=== PATIENT | female | born 1985 | race Caucasian/White ===

== ENCOUNTER → 2019-11-10 | Outpatient (CLI) | payer MEDICAID, SELFPAY ==
[2019-11-10 15:41] LABS: hCG Titer Quant., Serum 18655 mIU/mL (1-3)
== END | disposition home or self-care (01) ==
PROVIDERS: Nurse Practitioner Women's Health; PCP Family Medicine; Referring Provider Obstetrics & Gynecology; Visit Provider Obstetrics & Gynecology
DX: O20.0 Threatened abortion (principal)
CPT/HCPCS: 36415; 84702; 86850; 86900; 86901

== ENCOUNTER → 2019-11-11 | Outpatient (CLI) | payer MEDICAID, SELFPAY ==
--- NOTE | 2019-11-11 18:49 | US_ITS ---
STUDY: FIRST TRIMESTER OBSTETRICAL ULTRASOUND REASON FOR EXAM: Female, 33 years old. Viability. Spotting and cramping. LMP: September 21, 2019. TECHNIQUE: Transvaginal TECHNICAL QUALITY: Adequate. PRIOR ULTRASOUND: None. FINDINGS: There is visualization of a single gestational sac in a normal intrauterine position. The mean sac diameter (MSD) measures 1.6 cm, indicating an estimated gestational age (EGA) of 6 weeks, 3 days. The gestational sac shape is within normal limits. There is a visualized yolk sac. The yolk sac measures 0.36 cm. The placenta is non-visualized. There is visualization of a live embryo. The crown-rump length (CRL) measures 0.52 cm, indicating an estimated gestational age (EGA) of 6 weeks, 2 days. There is demonstrated cardiac activity with a heart rate of 112 bpm. The estimated gestation age (EGA) by LMP is 7 weeks, 2 days. The estimated date of delivery (TERRA) by LMP is June 27, 2020. The estimated gestation age (EGA) by US is 6 weeks, 3 days. The estimated date of delivery (TERRA) by US is July 03, 2020. The uterus measures 9.3 x 8.4 x 6.1 cm. There is no demonstrated uterine fibroid. The cervix is closed. The right ovary measures 3.6 x 2.8 x 2.3 cm. There are multiple follicles of the right ovary without a dominant cyst. There is no visualized right adnexal mass or complex lesion. The left ovary measures 3.6 x 2.3 x 1.7 cm. There are multiple follicles of the left ovary without a dominant cyst. There is no visualized left adnexal mass or complex lesion. There is no fluid in the cul de sac. US/Init OB < 14Wks US IMPRESSION: 1. Live single intrauterine at 6 weeks, 3 days. TERRA is July 03, 2020. 2. heart rate of 112 bpm. 3. Normal ovaries. Electronically Signed: José Miguel Shearer DO at 19:33 EDT Tel [phone], Service support ,
== END | disposition home or self-care (01) ==
LOC: US 18:47
PROVIDERS: PCP Family Medicine; Visit Provider Nurse Practitioner Women's Health
DX: O20.9 Hemorrhage in early pregnancy, unspecified (principal)
CPT/HCPCS: 76801

== ENCOUNTER → 2019-11-12 | Outpatient (CLI) | payer MEDICAID, SELFPAY ==
[2019-11-12 10:45] VITALS: BMI 31.2
[2019-11-12 11:54] LABS: Absolute Lymphocyte Count 1.35 X10^3/uL (0.83-4.51); Absolute Neutrophil Count 6.6 X10^3/uL (2.0-7.7); Basophil# 0.04 X10^3/uL; Basophil% 0.5 % (0-1); Eosinophil# 0.08 X10^3/uL; Hematocrit 42.2 % (37-47); Hemoglobin 14.3 g/dL (12.0-15.0); Lymphocyte # 1.35 X10^3/ul (4.0); Mean Corp Hgb Conc 33.9 g/dL (32-36); Mean Corpuscular Hgb 31.7 pg (27.0-32.0); Mean Corpuscular Volume 93.6 fL (81-99); Monocyte# 0.36 X10^3/uL; Monocyte% 4.3 % (0-10); NRBC Flagged by Analyzer 0 % (0-5); Neutrophil # 6.56 X10^3/uL (2.7-7.7); Neutrophil % 77.8 % (47-70); Platelet Count 215 K/mm3 (150-450); RBC Distribution Width CV 12.6 % (11.6-14.6); RBC Distribution Width SD 43.3 fl (35.1-43.9); Red Blood Count 4.51 M/mm3 (4.2-5.4); White Blood Count 8.4 K/mm3 (4.4-11.0)
[2019-11-12 12:10] LABS: ALB/GLOB Ratio 0.9 RATIO (0.9-2.4); AST(SGOT) 34 U/L (15-37); Alanine Aminotransfer ALT/SGPT 73 U/L (13-56); Albumin, Serum 3.5 g/dL (3.2-5.0); Alkaline Phosphatase 78 U/L (45-117); Anion Gap 6 (5-15); BUN 8 mg/dL (7-18); BUN/Creat Ratio 10.1 RATIO (10-20); Calcium,Total 8.9 mg/dL (8.5-10.1); Chloride 109 mmol/L (98-107); Creatinine, Serum 0.79 mg/dL (0.55-1.02); EST Glomerular Filtration Rate 88 mL/min (>60); Est Glom Filt Rate - Afr Amer 106 mL/min (>60); Globulin 3.9 g/dL (2.2-4.2); Glucose 97 mg/dL (74-106); Protein, Total 7.4 g/dL (6.4-8.2); Sodium Level 139 mmol/L (136-145)
[2019-11-12 13:31] LABS: HIV - WCH Non-Reactive (Nonreactive); Hepatitis B Surface Antigen Non-Reactive (Nonreactive); Rubella IgG 265.1 IU/mL
[2019-11-12 13:52] LABS: Hepatitis C Antibody Reactive (Nonreactive)
[2019-11-12 16:39] LABS: Protein, Urine (Random) < 6.0 mg/dL (<11.9)
[2019-11-12 16:49] LABS: Amphetamine Urine VISTA NEGATIVE (<1000 ng/mL); Barbiturate Urine VISTA NEGATIVE (< 200 ng/mL); Benzodiazepine Urine VISTA NEGATIVE (< 200 ng/mL); Cocaine Urine VISTA NEGATIVE (< 300 ng/mL); Ecstacy Urine VISTA NEGATIVE (< 500 ng/mL); Methadone Urine VISTA NEGATIVE (< 300 ng/mL); PCP Urine VISTA NEGATIVE (< 25 ng/mL); THC Urine VISTA NEGATIVE (< 50 ng/mL); Vista UDS pH Range 6
[2019-11-12 18:20] LABS: Chlamydia Trachomatis by PCR Negative (Negative); Neisserai gonorrhoeae by PCR Negative (Negative); Probe Check PASS; Sample Adequacy Control PASS; Specimen Processing Control PASS
[2019-11-13 04:31] LABS: Rapid Plasmin Reagin (RPR) NONREACTIVE (NONREACTIVE)
[2019-11-20 05:48] LABS: HPV APTIMA, High Risk Negative (Negative)
[2019-11-20 08:08] LABS: HCV Quant. RNA PCR 2150000 IU/mL (.)
[2019-11-20 18:21] LABS: HCV log 10 6.332 (.)
== END | disposition home or self-care (01) ==
PROVIDERS: PCP Family Medicine; Referring Provider Nurse Practitioner Women's Health; Visit Provider Nurse Practitioner Women's Health
DX: Z34.90 Encounter for supervision of normal pregnancy, unspecified, unspecified trimester (principal); Z87.59 Personal history of other complications of pregnancy, childbirth and the puerperium; R76.8 Other specified abnormal immunological findings in serum
CPT/HCPCS: 36415; 80053; 80307; 82570; 84156; 85025; 86592; 86703; 86762; 86803; 86850; 86900; 86901; 87086; 87088; 87340; 87491; 87522; 87591; 87624; 88175; G0145

== ENCOUNTER → 2019-11-24 | Outpatient (CLI) | payer MEDICAID, SELFPAY ==
[2019-11-12 10:45] VITALS: BMI 31.2
[2019-11-24 14:32] LABS: Protein, Urine (Random) < 6.0 mg/dL (<11.9); Protein:Creat Ratio 133 mg/g CRE (0-200)
[2019-11-24 14:39] LABS: Hemoglobin A1c 4.8 % (3.8-5.6)
[2019-11-24 15:05] LABS: ALB/GLOB Ratio 0.9 RATIO (0.9-2.4); AST(SGOT) 34 U/L (15-37); Alanine Aminotransfer ALT/SGPT 71 U/L (13-56); Albumin, Serum 3.6 g/dL (3.2-5.0); Alkaline Phosphatase 81 U/L (45-117); Anion Gap 6 (5-15); BUN 6 mg/dL (7-18); BUN/Creat Ratio 9.1 RATIO (10-20); Calcium,Total 8.7 mg/dL (8.5-10.1); Chloride 109 mmol/L (98-107); Creatinine, Serum 0.66 mg/dL (0.55-1.02); EST Glomerular Filtration Rate 108 mL/min (>60); Est Glom Filt Rate - Afr Amer 131 mL/min (>60); Glucose 89 mg/dL (74-106); Potassium 3.6 mmol/L (3.5-5.1); Protein, Total 7.6 g/dL (6.4-8.2); Sodium Level 137 mmol/L (136-145); Thyroid Stim Hormone (TSH) 1.38 uIU/mL (0.358-3.74)
[2019-11-28 16:08] LABS: Dilute Prothrombin Time (dPT) 28.1 sec (0.0-55.0); Dilute Russell Viper Venom 40.1 sec (0.0-47.0); HCV Quant. RNA PCR 266000 IU/mL (.); PTT-LA 31.1 sec (0.0-51.9); Thrombin Time 18.6 sec (0.0-23.0); dPT Confirm Ratio 1.24 Ratio (0.00-1.40)
[2019-11-28 17:19] LABS: Anti-Cardiolipin Ab, IgA, Qn < 9 APL U/mL (0-11); Anti-Cardiolipin Ab, IgG, Qn < 9 GPL U/mL (0-14); Anti-Cardiolipin Ab, IgM, Qn < 9 MPL U/mL (0-12); Beta-2-Glycoprotein I IgA <9 (0-25); Beta-2-Glycoprotein I IgG <9 (0-20); Beta-2-Glycoprotein I IgM <9 (0-32); HCV log 10 5.425 (.); Interpretation Comment: (.)
== END | disposition home or self-care (01) ==
PROVIDERS: PCP Family Medicine
DX: O09.291 Supervision of pregnancy with other poor reproductive or obstetric history, first trimester (principal); O09.299 Supervision of pregnancy with other poor reproductive or obstetric history, unspecified trimester; O98.419 Viral hepatitis complicating pregnancy, unspecified trimester; B18.2 Chronic viral hepatitis C; Z3A.00 Weeks of gestation of pregnancy not specified
CPT/HCPCS: 36415; 80053; 82570; 83036; 84156; 84443; 86146; 86147; 87522

== ENCOUNTER → 2019-12-01 | Outpatient (CLI) | payer MEDICAID, SELFPAY ==
[2019-11-28 15:00] VITALS: BMI 31.2
[2019-12-01 16:15] LABS: Glucose Challenge Gest 1H 50g 128 mg/dL (70-140)
[2019-12-01 16:28] LABS: NATERA MAILED SPECIMEN
[2019-12-01 23:22] LABS: Xtra Tube EP Lab EXTRA TUBE
== END | disposition home or self-care (01) ==
LOC: PAVLAB 14:19
PROVIDERS: PCP Family Medicine; Referring Provider Obstetrics & Gynecology; Visit Provider Obstetrics & Gynecology
DX: O99.210 Obesity complicating pregnancy, unspecified trimester (principal); O09.521 Supervision of elderly multigravida, first trimester; Z3A.00 Weeks of gestation of pregnancy not specified
CPT/HCPCS: 36415; 82950

== ENCOUNTER → 2020-01-28 | Outpatient (CLI) | payer MEDICAID, SELFPAY ==
[2020-01-23 16:58] VITALS: BMI 32.5
== END | disposition home or self-care (01) ==
PROVIDERS: PCP Family Medicine; Referring Provider Obstetrics & Gynecology; Visit Provider Obstetrics & Gynecology
DX: O09.529 Supervision of elderly multigravida, unspecified trimester (principal); Z3A.00 Weeks of gestation of pregnancy not specified
CPT/HCPCS: 36415

== ENCOUNTER → 2020-02-23 | Outpatient (CLI) | payer MEDICAID, SELFPAY ==
[2020-02-18 14:07] VITALS: BMI 32.5
[2020-02-23] MEDS: Dextrose 5%-Lactated Ringers 1,000 ML 999 ML IV (13:32)
[2020-02-23 13:35] VITALS: BP 128/75; PULSE 76; RESP 16; TEMP 37.1; O2SAT 99; BMI 35.4
[2020-02-23] MEDS: 0.9% NaCl Peripheral Flush Adult/Peds IV (13:35)
[2020-02-23] MEDS: Ondansetron 4 MG/2 ML Vial IV (13:54)
== END | disposition home or self-care (01) ==
LOC: MEDOUTP 13:04
PROVIDERS: Referring Provider Obstetrics & Gynecology; Visit Provider Obstetrics & Gynecology
DX: E86.0 Dehydration (principal)
CPT/HCPCS: 96361; 96374; A4216; J2405

== ENCOUNTER 2020-03-09 17:06 | Emergency (ER) | payer MEDICAID, SELFPAY ==
[2020-02-23 13:35] VITALS: BMI 35.4
[2020-03-09 17:07] VITALS: BP 147/78; PULSE 92; RESP 16; TEMP 36.1; O2SAT 98; BMI 37.0
--- NOTE | 2020-03-09 17:33 | ED.VIS.GEN ---
History of Present Illness Chief Complaint: Bite Informant: Patient Onset: Today Context: Sudden Onset Timing: Continuous Current Severity: Mild Maximum Severity: Mild Narrative: The patient is a 34-year-old female who is currently 20 weeks gestation that presents to the emergency department cat bite on her arm. She states she was trying to shoe away a stray cat. She was bit on the arm. This happened less than an hour prior to arrival. She thinks her last tetanus was less than 2 years ago. She denies any fevers or chills. Her has not been significantly complicated. She is otherwise been in her normal state of health. Prior similar symptoms: No Recent Illness/Hospitalization: No Past Medical History - Allergies and Home Meds Allergies/Adverse Reactions: Allergies No Known Allergies Allergy (Verified 03/09/20 17:08) Primary Care Physician: Care Physician,No Primary [Primary Care Provider] - Prior records reviewed: Yes Surgical History: noncontributory Smoking Status: Light Smoker (<10/day) Review of Systems General: Denies: Chills, Fever, Sweats Eyes: Denies: Visual changes - bilaterally, Diplopia ENT: Denies: Rhinorrhea, Sore throat Cardiovascular: Denies: Chest pain, Palpitations Respiratory: Denies: Dyspnea, Cough, Dyspnea on exertion Gastrointestinal: Denies: Abdominal pain, Nausea, Vomiting, Diarrhea, Melena, Hematochezia Genitourinary: Denies: Dysuria, Hematuria, Frequency Musculoskeletal: Denies: Back pain, Extremity Pain Skin: Denies: Rash, Wounds Neurological: Denies: Headache, Weakness, Numbness Physical Exam Vital Signs/Narrative: Vital Signs Temp Pulse Resp BP Pulse Ox 03/09/20 17:07 97.0 F L 92 16 147/78 H 98 Inital Vital Signs reviewed: Yes General: Well nourished, Well developed, No Acute Distress Head: Normocephalic, Atraumatic Eyes: Perrl, EOMI ENT: Moist mucous membranes, No rhinorrhea Neck: Supple, Nontender Cardiovascular: Regular rate, Regular rhythm, No murmurs Respiratory: No distress, CTA bilaterally, Chest nontender Abdomen: Soft, Nontender, Nondistended, Normal bowel sounds Back: Nontender, Normal Inspection Extremities: No edema, Tenderness - Patient has tenderness with puncture wounds on the dorsum of the right forearm. There is no streaking or cellulitis. There is no purulence. Pulses are normal. Skin: Normal color, No rash Neurological: Alert, Oriented x3, Cranial nerves II-XII grossly intact, Normal Strength, Normal Sensation Psychological: Normal affect, Normal Mood Diagnostic/Tx/Re-eval - Medical Decision Making Patient presents with cat bite. Tetanus is up-to-date. The wound was cleaned and dressed. The patient was placed on Augmentin which is category B. She was counseled on concerning symptoms and reasons to return. She will be discharged home. Impression 1. Cat bite right forearm ED Disposition - Plan for ED Patient: Instructions: ED Bite Cat Prescriptions: Amox/Clavulanate Tablet [Augmentin Tablet] 875 mg PO Q12H #14 tab Prescription Printed Referrals: Care Physician,No Primary [Primary Care Provider] -
[2020-03-09] MEDS: Amox/Clavulanate 875 MG Tablet PO (17:39)
== END 2020-03-09 17:46 | disposition home or self-care (01) ==
LOC: ED 17:39
PROVIDERS: Emergency Provider Emergency Medicine
DX: O26.892 Other specified pregnancy related conditions, second trimester (principal); S51.851A Open bite of right forearm, initial encounter; O99.332 Smoking (tobacco) complicating pregnancy, second trimester; F17.200 Nicotine dependence, unspecified, uncomplicated; Z3A.20 20 weeks gestation of pregnancy; W55.01XA Bitten by cat, initial encounter; Y93.89 Activity, other specified; Y92.007 Garden or yard of unspecified non-institutional (private) residence as the place of occurrence of the external cause; Y99.8 Other external cause status
CPT/HCPCS: 99281

== ENCOUNTER 2020-04-06 01:09 | Outpatient (CLI) | payer MEDICAID, SELFPAY ==
[2020-03-16 14:18] VITALS: BMI 36.9
[2020-04-06 01:16] VITALS: BP 137/65; PULSE 96; TEMP 36.4; O2SAT 98
[2020-04-06 01:24] VITALS: BMI 37.1
[2020-04-06 04:57] VITALS: BP 135/78; PULSE 89; TEMP 36.5
[2020-04-06 16:23] VITALS: BP 101/57; PULSE 93
[2020-04-06 16:24] VITALS: PULSE 86; O2SAT 100
[2020-04-06 16:25] VITALS: TEMP 37.1
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
== END 2020-04-06 05:00 | disposition home or self-care (01) ==
LOC: OBT 01:11 → WP 04-07 08:52
PROVIDERS: Visit Provider Obstetrics & Gynecology
DX: O26.899 Other specified pregnancy related conditions, unspecified trimester (principal); S39.91XA Unspecified injury of abdomen, initial encounter; V89.2XXA Person injured in unspecified motor-vehicle accident, traffic, initial encounter
CPT/HCPCS: 59025; 59050; 99218; G0378

== ENCOUNTER → 2020-05-21 12:22 | Outpatient (CLI) | payer MEDICAID, SELFPAY ==
[2020-05-19 10:45] VITALS: BMI 32.5
--- NOTE | 2020-05-21 12:23 | US_ITS ---
STUDY: SECOND AND THIRD TRIMESTER OBSTETRICAL ULTRASOUND - LIMITED REASON FOR EXAM: Female, 34 years old GROWTH LMP: 09/26/2019. PRIOR ULTRASOUND: Comparison is made with prior study dated 11/11/2019. TECHNIQUE: Transabdominal TECHNICAL QUALITY: Adequate. FINDINGS: There is a single intrauterine fetus. The fetus is in a cephalic presentation. There is demonstrated cardiac activity with a heart rate of 143 bpm. There is a normal amniotic fluid volume. The largest amniotic fluid pocket measures 3.9 cm. The amniotic fluid index (LIBIA) is 9.7 cm. The placenta is fundal in location. There are Grade 3 placental changes. The cervix measures 3.2 cm in length. BIOMETRY: BPD: 9.1 cm: 36 weeks, 6 days HC: 32.36 cm: 36 weeks, 4 days AC: 31.85 cm: 35 weeks, 5 days FL: 6.42 cm: 33 weeks, 1 days Age by LMP: 34 weeks, 0 days. TERRA by LMP: 07/02/2020. age by prior US: 33 weeks, 6 days. TERRA by prior US: 07/03/2020. age by current US: 35 weeks, 3 days. TERRA by current US: 06/22/2020. Estimated weight: 2660 grams, +/- 399 grams, 82 percentile. US/OB Limited With Biometrics IMPRESSION: Single live intrauterine gestation with a mean gestational age of 33 weeks and 6 days. The measurements obtained today fall within the normal expected range. Electronically Signed: Nahun Horton, at 14:05 EST , Service support ,
[2020-05-21 16:54] LABS: Absolute Lymphocyte Count 1.71 X10^3/uL (0.83-4.51); Absolute Neutrophil Count 6.9 X10^3/uL (2.0-7.7); Basophil# 0.03 X10^3/uL; Basophil% 0.3 % (0-1); Eosinophil# 0.09 X10^3/uL; Hematocrit 30.1 % (37-47); Hemoglobin 10.2 g/dL (12.0-15.0); Lymphocyte # 1.71 X10^3/ul (4.0); Lymphocyte % 18.7 % (19-41); Mean Corp Hgb Conc 33.9 g/dL (32-36); Mean Corpuscular Hgb 31.6 pg (27.0-32.0); Mean Corpuscular Volume 93.2 fL (81-99); Mean Platelet Vol. 8.8 fl (6.2-12.0); Monocyte% 3.3 % (0-10); NRBC Flagged by Analyzer 0 % (0-5); Neutrophil # 6.89 X10^3/uL (2.7-7.7); Neutrophil % 75.3 % (47-70); Platelet Count 256 K/mm3 (150-450); RBC Distribution Width CV 14.3 % (11.6-14.6); RBC Distribution Width SD 48.9 fl (35.1-43.9); Red Blood Count 3.23 M/mm3 (4.2-5.4); White Blood Count 9.2 K/mm3 (4.4-11.0)
[2020-05-21 18:13] LABS: ALB/GLOB Ratio 0.6 RATIO (0.9-2.4); AST(SGOT) 18 U/L (15-37); Alanine Aminotransfer ALT/SGPT 22 U/L (13-56); Albumin, Serum 2.3 g/dL (3.2-5.0); Alkaline Phosphatase 182 U/L (45-117); Anion Gap 6 (5-15); BUN 8 mg/dL (7-18); BUN/Creat Ratio 11.5 RATIO (10-20); Calcium,Total 8.4 mg/dL (8.5-10.1); Chloride 110 mmol/L (98-107); EST Glomerular Filtration Rate 101 mL/min (>60); Est Glom Filt Rate - Afr Amer 123 mL/min (>60); Globulin 3.9 g/dL (2.2-4.2); Glucose 112 mg/dL (74-106); Glucose Challenge Gest 1H 50g 112 mg/dL (70-140); Potassium 3.6 mmol/L (3.5-5.1); Protein, Total 6.2 g/dL (6.4-8.2); Sodium Level 138 mmol/L (136-145)
[2020-05-26 14:09] LABS: HCV Quant. RNA PCR 533000 IU/mL (.)
[2020-05-26 20:00] LABS: HCV log 10 5.727 (.)
== END ==
PROVIDERS: Referring Provider Obstetrics & Gynecology; Visit Provider Obstetrics & Gynecology
DX: Z34.90 Encounter for supervision of normal pregnancy, unspecified, unspecified trimester (principal)
CPT/HCPCS: 76816; 80053; 82746; 82950; 85025; 86803; 87522

== ENCOUNTER 2020-06-11 14:22 | Inpatient (IN) | payer MEDICAID, SELFPAY ==
[2020-06-11] VITALS (36 sets, daily range): BP systolic 116–178; BP diastolic 59–86; PULSE 70–116; TEMP 36.2–37.9; O2SAT 91–100; BMI 37.5
[2020-06-11] MEDS: Lactated Ringers 1,000 ML 500 ML IV (14:35)
[2020-06-11 15:20] LABS: Hematocrit 33.2 % (37-47); Hemoglobin 11.5 g/dL (12.0-15.0); Mean Corp Hgb Conc 34.6 g/dL (32-36); Mean Corpuscular Hgb 31.6 pg (27.0-32.0); Mean Corpuscular Volume 91.2 fL (81-99); Mean Platelet Vol. 8.6 fl (6.2-12.0); Platelet Count 316 K/mm3 (150-450); RBC Distribution Width CV 13.9 % (11.6-14.6); RBC Distribution Width SD 46.5 fl (35.1-43.9); Red Blood Count 3.64 M/mm3 (4.2-5.4); White Blood Count 16.1 K/mm3 (4.4-11.0)
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
[2020-06-11 15:59] LABS: Amphetamine Urine VISTA NEGATIVE (<1000 ng/mL); Barbiturate Urine VISTA NEGATIVE (< 200 ng/mL); Benzodiazepine Urine VISTA NEGATIVE (< 200 ng/mL); Cocaine Urine VISTA NEGATIVE (< 300 ng/mL); Ecstacy Urine VISTA NEGATIVE (< 500 ng/mL); Methadone Urine VISTA NEGATIVE (< 300 ng/mL); PCP Urine VISTA NEGATIVE (< 25 ng/mL); THC Urine VISTA POSITIVE (< 50 ng/mL); Vista UDS pH Range 6
[2020-06-11 16:19] LABS: Group B Strep DNA By PCR Negative (Negative); Internal Control PASS; Probe Check PASS; Specimen Processing Control PASS
[2020-06-11] MEDS: fentaNYL-bupivacaine (epidural) 100 ML BAG EPIDURAL (16:25)
[2020-06-11] MEDS: Lactated Ringers 1,000 ML 200 ML IV (16:39)
[2020-06-11] MEDS: Oxytocin 30 units/NS 500 ml 30 UNITS/500 ML IV.SOLN 334 UNITS IV (21:51)
--- NOTE | 2020-06-11 22:56 | OP.PCM_ITS ---
Problem List (1) 35 weeks gestation of Status: Acute Comment: electronic covid test ordered 05/28/20 (scheduled for 06/29/20 at 1630) (2) Family history of congenital heart defect Status: Acute Comment: FOB has prior child with VSD. normal echo (3) History of stillbirth in currently patient Status: Acute Comment: Anatomy at 18 weeks- nl; echo between 22-24- nl; serial growth q4 weeks throughout the ; weekly NSTs starting at 28 weeks, deliver at 39 weeks; NL US 05/21/20 (4) Obesity affecting Status: Acute Comment: nl 1 TM glucola, encouraged healthy weight gain. (5) AMA (advanced maternal age) multigravida 35+ Status: Acute Comment: NIPT-low risk. screening planned. (6) Supervision of high-risk Status: Acute Comment: PRR TERRA 07/03/20 boy John LOUIE (jacqueline Whittaker) ERROL Lopez(Alfred Hawthorne) (7) History of heroin abuse Status: Acute Comment: patient states she last used 3 years ago. plan Random tox (8) Hepatitis C antibody positive in blood Status: Acute Comment: [facility] consult. hepc RNA 266,000 on 11/23., serial growth @4 wks (9) History of abnormal cervical Pap smear Status: Acute Comment: 2008 cryotherapy (10) History of pre-eclampsia Status: Acute Comment: severe, delivered at 29 weeks. APL panel nl. nl Baseline pre E labs; Baby ASA at 14 wk (11) Family history of cleft lip and palate Status: Acute Comment: brother. Anatomy negative. (12) Status: Acute Qualifiers: Comment: male low risk, AFP-negative, carrier normal. anatomy reviewed. Vaginal Delivery Maternal Presentation: Active Labor 34-year-old at 36 weeks 6 days admitted in active labor. Patient made cervical change to 9 cm without augmentation and then was augmented with artificial rupture of membranes. She had been complete and pushing for approximately 1 hour when she began to have deep recurrent variable decelerations. The recommendation was made to proceed with a forceps assisted vaginal delivery. The risk, benefits, indications, and alternatives were discussed with the patient and she agreed to proceed. Amniotic Membrane Rupture Type: Artificial Amniotic Fluid Description: Thick meconium Final TERRA: 07/03/20 Gestational age: 36 Weeks and 6 Days Date of Procedure: 06/11/20 Pre-Operative Diagnosis: labor, history of drug use, hepatitis C, category 2 FHT Post-Operative Diagnosis: Same Surgery/ Procedure Performed: Forceps Assisted Vaginal Delivery Type of Anesthesia: Epidural Description of Procedure: Teja-Itzel forceps were applied in the standard fashion and placement was confirmed. Maternal bladder had been emptied as the Blanton catheter had recently been removed. Nursery was in the room. Anesthesia was found to be adequate. Traction was applied for 2 contractions. The forceps were removed and the head was noted to be . Head was delivered atraumatically and no nuchal cord was noted. The anterior and posterior shoulders delivered without complication followed by the rest of the and the was placed on the maternal abdomen. Cord was clamped and cut and gentle traction was applied to the cord and the placenta delivered spontaneously immediately following it was noted to be intact with three-vessel cord. The perineum and vagina were inspected and a 3 a perineal laceration was noted and repaired in the standard fashion using 2-0 Vicryl to reapproximate the external anal sphincter and 3-0 Vicryl Rapide to repair the remainder of the laceration. EBL was 250 cc. Patient and tolerated delivery well. Presentation: Vertex, ROP Placental Delivery Description: Spontaneous Placenta Disposition: [facility] Cord Vessel Description: 3 Vessels Nuchal Cord Compression: Without compression Cord Gases drawn per routine: VBG Cord Entanglement: None Drain: Blanton to straight drain Estimated Blood Loss: 250 cc A gender: Male Episiotomy Description: None Laceration: Midline, 3rd degree - 3a Medications given after delivery: IV Pitocin Complications: None Multi Select Codes - Urinary/Genital Urinary/Genital CPT Codes: 22264 Vaginal Delivery+ Care([facility])
--- NOTE | 2020-06-11 23:06 | DCINST_ITS ---
Discharge Diet: No Restrictions Discharge Activity: Return to Normal Activity, May not drive while taking narcotic pain medications., May Shower May resume sexual activity in: 4-6 weeks Additional Activity Instructions:: Nothing in the vagina for 4-6 weeks. You may return to work/school in 6 weeks. Call your doctor if your incision/area has: Continuous Slow Oozing, Sudden Increased Bleeding, Increased Pain/ Swelling, Increased Redness, Foul Smelling Discharge Additional Instructions: If you experience any of the following, contact your healthcare provider. * Bleeding that soaks a pad every hour for 2 hours * Fever 100.4 or higher * Unrelieved incision or abdominal pain * Swelling, redness, discharge or bleeding from your incision or episiotomy site * Your incision begins to separate * Problems urinating (including inability to urinate or burning while urinating). * Visual changes * Severe headache * Flu-like symptoms * Pain or redness in one of both of your breasts * Pain, warmth, tenderness or swelling in your legs, especially the calf area * Frequent nausea and vomiting * Symptoms of depression or anxiety If you experience any of the following, call 911 or go to the nearest Emergency Room. * Chest pain * Problems breathing * Seizure activity * Partial or complete paralysis of a body part, slurred speech, weakness or drooping of the face, or a sudden inability to walk or hold your balance Allergies/Adverse Reactions: Allergies No Known Allergies Allergy (Verified 06/04/20 13:59) Medications to take at Discharge ferrous sulfate 325 mg (65 mg iron) tablet 325 mg PO DAILY 11/12/19 vitamin #56-iron 35 mg and 5 mg-folic acid 1 mg-dha capsule 1 cap PO DAILY 11/12/19 Aspirin [Aspirin, Baby] 81 mg PO DAILY@0800 04/06/20 diphenhydramine HCl 25 mg capsule 25 mg PO TID PRN 05/21/20 promethazine 12.5 mg tablet 12.5 mg PO Q6H PRN #60 tab 05/25/20 When: Call to make an appointment with your doctor in 6 weeks. If you had elevated Blood Pressure or 4th degree laceration you will need to be seen in 2 weeks. Primary Care Physician: Care Physician,No Primary [Primary Care Provider] - Test Results: Test results from this visit will be discussed in further detail at your follow- up appointment, if applicable.
[2020-06-12] VITALS (7 sets, daily range): BP systolic 117–146; BP diastolic 70–75; PULSE 87–109; RESP 16–18; TEMP 36.4–37.3; O2SAT 97
[2020-06-12] MEDS: Ibuprofen 600 MG Tablet PO ×3 (01:04→18:38)
[2020-06-12] MEDS: Acetaminophen 500 MG Tablet 1000 MG PO ×2 (04:30→20:19)
--- NOTE | 2020-06-12 10:18 | PN.OBGYN_ITS ---
Patient Problems: Active and Suspected Problems (Last Reviewed 06/04/20 @ 13:59 by Jeanette Goodrich) 35 weeks gestation of (Acute) electronic covid test ordered 05/28/20 (scheduled for 06/29/20 at 1630) Family history of congenital heart defect (Acute) FOB has prior child with VSD. normal echo History of stillbirth in currently patient (Acute) Anatomy at 18 weeks- nl; echo between 22-24- nl; serial growth q4 weeks throughout the ; weekly NSTs starting at 28 weeks, deliver at 39 weeks; NL US 05/21/20 Obesity affecting (Acute) nl 1 TM glucola, encouraged healthy weight gain. AMA (advanced maternal age) multigravida 35+ (Acute) NIPT-low risk. screening planned. Supervision of high-risk (Acute) PRR TERRA 07/03/20 boy John LOUIE (jacqueline Whittaker) ERROL Lopez(Mar[place], [facility]) History of heroin abuse (Acute) patient states she last used 3 years ago. plan Random tox Hepatitis C antibody positive in blood (Acute) MFM consult. hepc RNA 266,000 on 11/23., serial growth @4 wks History of abnormal cervical Pap smear (Acute) 2008 cryotherapy History of pre-eclampsia (Acute) severe, delivered at 29 weeks. APL panel nl. nl Baseline pre E labs; Baby ASA at 14 wk Family history of cleft lip and palate (Acute) brother. Anatomy negative. (Acute) male low risk, AFP-negative, carrier normal. anatomy reviewed. Subjective: Patient doing well without complaints. Tolerating PO. Ambulating and voiding without difficulty. Bottle feeding well. Denies chest pain, shortness of breath, calf pain/swelling, fevers, chills, lightheadedness. Objective: Laboratory Tests 06/11/20 06/11/20 06/11/20 Range/Units 15:05 15:03 15:03 WBC 16.1 H (4.4-11.0) K/mm3 RBC 3.64 L (4.2-5.4) M/mm3 Hgb 11.5 L (12.0-15.0) g/dL Hct 33.2 L (37-47) % MCV 91.2 (81-99) fL MCH 31.6 (27.0-32.0) pg MCHC 34.6 (32-36) g/dL RDW Std Deviation 46.5 H (35.1-43.9) fl RDW Coeff of Smiley 13.9 (11.6-14.6) % Plt Count 316 (150-450) K/mm3 MPV 8.6 (6.2-12.0) fl Immature Gran % (Auto) Cancelled Neut % (Auto) Cancelled Lymph % (Auto) Cancelled Garland % (Auto) Cancelled Eos % (Auto) Cancelled Baso % (Auto) Cancelled Neut # (Auto) Cancelled Immature Gran # (Auto) Cancelled Absolute Neuts (auto) Cancelled Absolute Lymphs (auto) Cancelled Absolute Monos (auto) Cancelled Total Counted Cancelled Neutrophils % (Manual) Cancelled Band Neutrophils % Cancelled Lymphocytes % (Manual) Cancelled Monocytes % (Manual) Cancelled Eosinophils % (Manual) Cancelled Basophils % (Manual) Cancelled Metamyelocytes % Cancelled Myelocytes % Cancelled Promyelocytes % Cancelled Blast Cells % Cancelled Plasma Cell % (Manual) Cancelled Other Cells % Cancelled Nucleated RBC % Cancelled Lymphocytes # Cancelled Basophils # Cancelled Nucleated RBCs/100 WBC Cancelled Differential Comment Cancelled Hypersegmented Neuts Cancelled Atypical Lymphocytes Cancelled Reactive Lymphocytes Cancelled Smudge Cells Cancelled Eosinophilia # Cancelled Toxic Granulation Cancelled Toxic Vacuolation Cancelled Dohle Bodies Cancelled Karely Rods Cancelled Platelet Estimate Cancelled Plt Morphology Comment Cancelled RBC Morphology Cancelled Polychromasia Cancelled Hypochromasia Cancelled Poikilocytosis Cancelled Basophilic Stippling Cancelled Anisocytosis Cancelled Microcytosis Cancelled Macrocytosis Cancelled Spherocytes Cancelled Sickle Cells Cancelled Target Cells Cancelled Tear Drop Cells Cancelled Ovalocytes Cancelled Stomatocytes Cancelled [place] Bodies Cancelled Dmitriy Cells Cancelled Bite Cells Cancelled Crenated Cell Cancelled Acanthocytes (Spur) Cancelled Rouleaux Cancelled Schistocytes Cancelled Urine Opiates Screen NEGATIVE (< 300 ng/mL) Urine Methadone Screen NEGATIVE (< 300 ng/mL) Ur Barbiturates Screen NEGATIVE (< 200 ng/mL) Ur Phencyclidine Scrn NEGATIVE (< 25 ng/mL) Ur Amphetamines Screen NEGATIVE (<1000 ng/mL) U Methamphetamin-MDMA NEGATIVE (< 500 ng/mL) U Benzodiazepines Scrn NEGATIVE (< 200 ng/mL) Urine Cocaine Screen NEGATIVE (< 300 ng/mL) U Cannabinoids Screen POSITIVE H (< 50 ng/mL) Ur Drug Screen Comment Group B Strep DNA (Negative) Specimen Comment Blood Type A POSITIVE Antibody Screen NEGATIVE 06/11/20 Range/Units 14:50 WBC (4.4-11.0) K/mm3 RBC (4.2-5.4) M/mm3 Hgb (12.0-15.0) g/dL Hct (37-47) % MCV (81-99) fL MCH (27.0-32.0) pg MCHC (32-36) g/dL RDW Std Deviation (35.1-43.9) fl RDW Coeff of Smiley (11.6-14.6) % Plt Count (150-450) K/mm3 MPV (6.2-12.0) fl Immature Gran % (Auto) Neut % (Auto) Lymph % (Auto) Garland % (Auto) Eos % (Auto) Baso % (Auto) Neut # (Auto) Immature Gran # (Auto) Absolute Neuts (auto) Absolute Lymphs (auto) Absolute Monos (auto) Total Counted Neutrophils % (Manual) Band Neutrophils % Lymphocytes % (Manual) Monocytes % (Manual) Eosinophils % (Manual) Basophils % (Manual) Metamyelocytes % Myelocytes % Promyelocytes % Blast Cells % Plasma Cell % (Manual) Other Cells % Nucleated RBC % Lymphocytes # Basophils # Nucleated RBCs/100 WBC Differential Comment Hypersegmented Neuts Atypical Lymphocytes Reactive Lymphocytes Smudge Cells Eosinophilia # Toxic Granulation Toxic Vacuolation Dohle Bodies Karely Rods Platelet Estimate Plt Morphology Comment RBC Morphology Polychromasia Hypochromasia Poikilocytosis Basophilic Stippling Anisocytosis Microcytosis Macrocytosis Spherocytes Sickle Cells Target Cells Tear Drop Cells Ovalocytes Stomatocytes [place] Bodies [place] Cells Bite Cells Crenated Cell Acanthocytes (Spur) Rouleaux Schistocytes Urine Opiates Screen (< 300 ng/mL) Urine Methadone Screen (< 300 ng/mL) Ur Barbiturates Screen (< 200 ng/mL) Ur Phencyclidine Scrn (< 25 ng/mL) Ur Amphetamines Screen (<1000 ng/mL) U Methamphetamin-MDMA (< 500 ng/mL) U Benzodiazepines Scrn (< 200 ng/mL) Urine Cocaine Screen (< 300 ng/mL) U Cannabinoids Screen (< 50 ng/mL) Ur Drug Screen Comment Group B Strep DNA Negative (Negative) Specimen Comment Not Reportable Blood Type Antibody Screen - Physical Exam Vitals/I&O's: Vital Signs Temp Pulse Resp BP Pulse Ox 98.2 F 87 18 146/72 H 100 06/12/20 08:40 06/12/20 08:40 06/12/20 08:39 06/12/20 08:40 06/11/20 19:59 Oxygen Delivery Method Room Air Weight: 205 lb Body Mass Index (BMI) 37.5 Intake and Output for Last 24 Hours 06/10/20 06/11/20 06/12/20 23:59 23:59 23:59 Intake Total 327.43 / 327.43 Output Total 700 / 700 Balance -372.57 / -372.57 General: Alert, Oriented x3, Cooperative, No apparent distress, Well developed, Well nourished HEENT: Atraumatic, PERRLA, EOMI, Normocephalic Neck: Supple, No JVD Lungs: Normal air movement Cardiovascular: Regular rate Abdomen: Soft, Non Tender, Non-Distended, - - fundus firm Extremities: No edema, No Calf Tenderness Neurological: Cranial nerves II-XII grossly intact, Neuro grossly intact Psych/Mental Status: Normal Affect, Appropriate Microbiology Past 72 Hours 06/11/20 15:10 Mucosa - Nose SARS-CoV-2 Antigen (Rapid) - Final Laboratory Results 06/11/20 14:50: Group B Strep DNA Negative, Specimen Comment Not Reportable 06/11/20 15:03: WBC 16.1 H, RBC 3.64 L, Hgb 11.5 L, Hct 33.2 L, MCV 91.2, MCH 31.6, MCHC 34.6, RDW Std Deviation 46.5 H, RDW Coeff of Smiley 13.9, Plt Count 316, MPV 8.6, Immature Gran % (Auto) Cancelled, Neut % (Auto) Cancelled, Lymph % (Auto) Cancelled, Garland % (Auto) Cancelled, Eos % (Auto) Cancelled, Baso % (Auto) Cancelled, Neut # (Auto) Cancelled, Immature Gran # (Auto) Cancelled, Absolute Neuts (auto) Cancelled, Absolute Lymphs (auto) Cancelled, Absolute Monos (auto) Cancelled, Total Counted Cancelled, Neutrophils % (Manual) Cancelled, Band Neutrophils % Cancelled, Lymphocytes % (Manual) Cancelled, Monocytes % (Manual) Cancelled, Eosinophils % (Manual) Cancelled, Basophils % (Manual) Cancelled, Metamyelocytes % Cancelled, Myelocytes % Cancelled, Promyelocytes % Cancelled, Blast Cells % Cancelled, Plasma Cell % (Manual) Cancelled, Other Cells % Cancelled, Nucleated RBC % Cancelled, Lymphocytes # Cancelled, Basophils # Cancelled, Nucleated RBCs/100 WBC Cancelled, Differential Comment Cancelled, Hypersegmented Neuts Cancelled, Atypical Lymphocytes Cancelled, Reactive Lymphocytes Cancelled, Smudge Cells Cancelled, Eosinophilia # Cancelled, Toxic Granulation Cancelled, Toxic Vacuolation Cancelled, Dohle Bodies Cancelled, Karely Rods Cancelled, Platelet Estimate Cancelled, Plt Morphology Comment Cancelled, RBC Morphology Cancelled, Polychromasia Cancelled, Hypochromasia Cancelled, Poikilocytosis Cancelled, Basophilic Stippling Cancelled, Anisocytosis Cancelled, Microcytosis Cancelled, Macrocytosis Cancelled, Spherocytes Cancelled, Sickle Cells Cancelled, Target Cells Cancelled, Tear Drop Cells Cancelled, Ovalocytes Cancelled, Stomatocytes Cancelled, [place] Bodies Cancelled, Dmitriy Cells Cancelled, Bite Cells Cancelled, Crenated Cell Cancelled, Acanthocytes (Spur) Cancelled, Rouleaux Cancelled, Schistocytes Cancelled 06/11/20 15:03: Blood Type A POSITIVE, Antibody Screen NEGATIVE 06/11/20 15:05: Urine Opiates Screen NEGATIVE, Urine Methadone Screen NEGATIVE, Ur Barbiturates Screen NEGATIVE, Ur Phencyclidine Scrn NEGATIVE, Ur Amphetamines Screen NEGATIVE, U Methamphetamin-MDMA NEGATIVE, U Benzodiazepines Scrn NEGATIVE, Urine Cocaine Screen NEGATIVE, U Cannabinoids Screen POSITIVE H, Ur Drug Screen Comment Current Medications Acetaminophen (Acetaminophen 500 Mg Tablet) 1,000 mg PO Q8H PRN PRN PRN Reason: Pain Score 1-3 Last Admin: 06/12/20 04:30 Dose: 1,000 mg Documented by: Bisacodyl (Bisacodyl 10 Mg Suppository) 10 mg RECTAL UD PRN PRN Reason: If no BM Dibucaine (Dibucaine 30 Gm Tube) 1 applic TOPICAL TID PRN PRN; Protocol PRN Reason: Discomfort Docusate Sodium (Docusate Sodium 100 Mg Capsule) 100 mg PO BID CARLO Hydrocortisone (Hydrocortisone 2.5% Crm) 1 applic TOPICAL TID PRN PRN; Protocol PRN Reason: Discomfort Ibuprofen (Ibuprofen 600 Mg Tablet) 600 mg PO Q6H PRN PRN PRN Reason: Pain Score 1-3 Last Admin: 06/12/20 01:04 Dose: 600 mg Documented by: Methylergonovine Maleate (Methylergonovine 0.2 Mg/Ml Ampul) 0.2 mg IM X1 PRN PRN Reason: Excess bleeding/uterine atony Ondansetron HCl (Ondansetron 4 Mg/2 Ml Vial) 4 mg IV Q4H PRN PRN PRN Reason: Nausea Oxycodone HCl (Oxycodone 5 Mg Tablet) 5 - 10 mg PO Q4H PRN PRN PRN Reason: Pain Score 4-10 Simethicone (Simethicone 80 Mg Tablet) 80 mg PO PCHS PRN PRN Reason: Indigestion/Stomach pain Sodium Chloride (0.9% Saline Lock 10 Ml Syringe) 5 - 15 ml IV UD PRN PRN Reason: SALINE FLUSH Medical Necessity - Tobacco Use Smoking Status: Light Smoker (<10/day) Assessment/Plan All Active Problems (Last Reviewed 06/04/20 @ 13:59 by Jeanette Goodrich) 35 weeks gestation of (Acute) Family history of congenital heart defect (Acute) History of stillbirth in currently patient (Acute) Obesity affecting (Acute) AMA (advanced maternal age) multigravida 35+ (Acute) Supervision of high-risk (Acute) History of heroin abuse (Acute) Hepatitis C antibody positive in blood (Acute) History of abnormal cervical Pap smear (Acute) History of pre-eclampsia (Acute) Family history of cleft lip and palate (Acute) (Acute) Bleeding in early (Resolved) Nausea and vomiting during (Resolved) s/p PPD # 1 1. routine post delivery care 2. bottle feeding- support given 3. rh positive 4. rubella immune
[2020-06-12] MEDS: Docusate Sodium 100 MG Capsule PO (11:08)
--- NOTE | 2020-06-12 12:22 | NURSING ---
RN gave patient information pamphlet on THC use while . She verbalizes understanding. states she will not use anymore
--- NOTE | 2020-06-12 18:00 | CASEMGMT ---
Social Work Assessment Labor and Delivery Unit Date of Referral: 06/12/2020 Time of Referral: 01:48 Referred By: Physician Date of Intervention: 06/12/2020 Time of Intervention: 18:00 Reason for Referral: Positive THC, history of heroin use History obtained from: Medical records and mother of baby (MOB) Bessy Jama Household composition: MOB reports to live with John BENITEZ and denies any housing issues. Medical History: MOB is 2, para 1 after delivery. MOB reports stillborn a few years ago. Financial Status: MOB reports is unemployed. MOB states limited household income. Supplies: MOB reports to have all needs met for baby including crib, car seat, clothing, diapers, wipes, etc. MOB states is planning to breast feed. Childcare/Caregiver(s): MOB with help from FOB. Transportation: MOB denies any issues with transportation. Programs/Agencies Involved: [facility], [facility] Children Services/Legal Issues: MOB denies any history with Children Services. Behavioral Health Issues: Mental Health History: MOB admits to history of anxiety and depression. MOB states uses marijuana to cope with anxiety. Substance Use History: MOB admits to using marijuana 2x week. Nursing reported MOB reported daily use to nursing staff. MOB reports history of heroin use and states has abstained for 2 years. MOB reports completed medication assisted treatment and intensive outpatient counseling. Maternal and Drug Screens: MOB was positive for Cannabinoids upon admission. Nursing reports baby?s urine negative. Meconium to be sent for testing. Family/Social Stressors: John Richardson has been transferred to [facility] due to respiratory distress. MOB worried about baby?s condition. Much emotional support provided. Support Systems: MOB reports good support from FOB. Depression and Anxiety/Shaken Baby/Safe Sleeping: Reviewed and provided educational handouts. ASSESSMENT: Met with MOB in room. Introduced role and reason for referral. MOB sitting in bed pumping upon this worker entering room. John Richardson has been transferred to [facility]. MOB reports concern for baby?s condition. Emotional support provided. MOB with flat affect throughout assessment. MOB admitted to use of marijuana throughout and states uses ?2x a week.? MOB reports has been ?clean? form heroin for 2 years. MOB states completed medication assisted treatment along with intensive outpatient counseling. FOB not currently in room. MOB reports good support from FOB. Discussed Help Me Grow. MOB open to referral. Informed SW will be following up on Sunday. MOB verbalized understanding. Safe Plan of Care for related to substance use: MOB reports plan to abstain from marijuana use as she wishes to continue to breast feed. MOB was educated on recommendation to not breast feed while using marijuana. PLAN: SW to follow up on 06/14/2020. Baby has been transferred to [facility]. Plan to make Children Services referral on Sunday due to MOB?s positive tox screen for THC. Elodia Stuart, SENIOR FRONT END DEVELOPER, [employer]
[2020-06-13 01:15] VITALS: BP 133/65; PULSE 98; RESP 18; TEMP 37.1
[2020-06-13] MEDS: Ibuprofen 600 MG Tablet PO ×2 (01:19→09:26)
--- NOTE | 2020-06-13 06:58 | PCM.PN.OB ---
Patient Problems: Active and Suspected Problems (Last Reviewed 06/04/20 @ 13:59 by Jeanette Goodrich) 35 weeks gestation of (Acute) electronic covid test ordered 05/28/20 (scheduled for 06/29/20 at 1630) Family history of congenital heart defect (Acute) FOB has prior child with VSD. normal echo History of stillbirth in currently patient (Acute) Anatomy at 18 weeks- nl; echo between 22-24- nl; serial growth q4 weeks throughout the ; weekly NSTs starting at 28 weeks, deliver at 39 weeks; NL US 05/21/20 Obesity affecting (Acute) nl 1 TM glucola, encouraged healthy weight gain. AMA (advanced maternal age) multigravida 35+ (Acute) NIPT-low risk. screening planned. Supervision of high-risk (Acute) PRR TERRA 07/03/20 boy John LOUIE (jacqueline Whittaker) ERROL Lopez(Marine, [facility]) History of heroin abuse (Acute) patient states she last used 3 years ago. plan Random tox Hepatitis C antibody positive in blood (Acute) MFM consult. hepc RNA 266,000 on 11/23., serial growth @4 wks History of abnormal cervical Pap smear (Acute) 2008 cryotherapy History of pre-eclampsia (Acute) severe, delivered at 29 weeks. APL panel nl. nl Baseline pre E labs; Baby ASA at 14 wk Family history of cleft lip and palate (Acute) brother. Anatomy negative. (Acute) male low risk, AFP-negative, carrier normal. anatomy reviewed. Subjective: Patient doing well without complaints. Tolerating PO. Ambulating and voiding without difficulty. feeding well. Denies chest pain, shortness of breath, calf pain/swelling, fevers, chills, lightheadedness. - Physical Exam Vitals/I&O's: Vital Signs Temp Pulse Resp BP Pulse Ox 98.8 F 98 18 133/65 H 97 06/13/20 01:15 06/13/20 01:15 06/13/20 01:15 06/13/20 01:15 06/12/20 20:12 Oxygen Delivery Method Room Air Weight: 205 lb Body Mass Index (BMI) 37.5 Intake and Output for Last 24 Hours 06/11/20 06/12/20 06/13/20 23:59 23:59 23:59 Intake Total 327.43 / 327.43 Output Total 700 / 700 Balance -372.57 / -372.57 General: Alert, Oriented x3 Microbiology Past 72 Hours 06/11/20 15:10 Mucosa - Nose SARS-CoV-2 Antigen (Rapid) - Final Current Medications Acetaminophen (Acetaminophen 500 Mg Tablet) 1,000 mg PO Q8H PRN PRN PRN Reason: Pain Score 1-3 Last Admin: 06/12/20 20:19 Dose: 1,000 mg Documented by: Bisacodyl (Bisacodyl 10 Mg Suppository) 10 mg RECTAL UD PRN PRN Reason: If no BM Dibucaine (Dibucaine 30 Gm Tube) 1 applic TOPICAL TID PRN PRN; Protocol PRN Reason: Discomfort Docusate Sodium (Docusate Sodium 100 Mg Capsule) 100 mg PO BID CARLO Last Admin: 06/12/20 23:10 Dose: Not Given Documented by: Hydrocortisone (Hydrocortisone 2.5% Crm) 1 applic TOPICAL TID PRN PRN; Protocol PRN Reason: Discomfort Ibuprofen (Ibuprofen 600 Mg Tablet) 600 mg PO Q6H PRN PRN PRN Reason: Pain Score 1-3 Last Admin: 06/13/20 01:19 Dose: 600 mg Documented by: Methylergonovine Maleate (Methylergonovine 0.2 Mg/Ml Ampul) 0.2 mg IM X1 PRN PRN Reason: Excess bleeding/uterine atony Ondansetron HCl (Ondansetron 4 Mg/2 Ml Vial) 4 mg IV Q4H PRN PRN PRN Reason: Nausea Oxycodone HCl (Oxycodone 5 Mg Tablet) 5 - 10 mg PO Q4H PRN PRN PRN Reason: Pain Score 4-10 Simethicone (Simethicone 80 Mg Tablet) 80 mg PO PCHS PRN PRN Reason: Indigestion/Stomach pain Sodium Chloride (0.9% Saline Lock 10 Ml Syringe) 5 - 15 ml IV UD PRN PRN Reason: SALINE FLUSH Medical Necessity - Tobacco Use Smoking Status: Light Smoker (<10/day) Assessment/Plan All Active Problems (Last Reviewed 06/04/20 @ 13:59 by Jeanette Goodrich) 35 weeks gestation of (Acute) Family history of congenital heart defect (Acute) History of stillbirth in currently patient (Acute) Obesity affecting (Acute) AMA (advanced maternal age) multigravida 35+ (Acute) Supervision of high-risk (Acute) History of heroin abuse (Acute) Hepatitis C antibody positive in blood (Acute) History of abnormal cervical Pap smear (Acute) History of pre-eclampsia (Acute) Family history of cleft lip and palate (Acute) (Acute) Bleeding in early (Resolved) Nausea and vomiting during (Resolved) s/p PPD #2 1. routine post delivery care 2. breast feeding- support given 3. rh positive 4. rubella immune
[2020-06-13 09:50] VITALS: BP 123/73; PULSE 110; RESP 14; TEMP 36.4; O2SAT 97
[2020-06-13 14:00] VITALS: BP 134/82; PULSE 100; RESP 14; TEMP 36.3; O2SAT 100
[2020-06-13] MEDS: Acetaminophen 500 MG Tablet 1000 MG PO (14:09)
--- NOTE | 2020-06-15 17:25 | CASEMGMT ---
Social Work Labor and Delivery Reason for follow up: PHQ9 score of 12, falling into the moderate range of depression; Referral to [facility]; [facility] referral. Summary: Met with the mother of baby (MOB) at baby's bedside in the [facility]. Introduced to self and role, reason for visit to follow up on depression screening and for baby in the [facility] (where this conventional mortgage underwriter also provides social work services). PHQ9/Mental Health history: MOB MOB endorses history of depression and anxiety. ?Reports history of psychiatric hospitalization in 2004 for suicidal plan to overdose. ?MOB was hospitalized for 2 weeks at that time. ?MOB denies any past attempts. ?Denies any thoughts, plans, intent, or attempts during this . Reports would not want to harm the baby, nor does MOB want to kill self now as would not want to leave the baby. ??MOB does endorse however depression increasing during this , with the counselor from [facility], Yajaira, working on anxiety issues. ??MOB reports history of treatment with Lexapro in the past and that this medication worked well, but this has been some time since being on medication. ?MOB reports talking to family and not isolating are a couple of coping skills she can use. ??Records indicate MOB has used marijuana to cope with anxiety, though not endorsed to this conventional mortgage underwriter. ? MOB reports that when in counseling she was feeling better and also knows that talking to family and not isolating are helpful to MOB's mental health. MOB voices agreement to have socially responsible investment adviser contact OBGYN about possibly starting on an antidepressant, as well as this conventional mortgage underwriter helping to facilitate MOB getting back into her counselor at [facility]. Release to [facility] signed. Substance Use: ?MOB reports to this conventional mortgage underwriter has been clean from Heroin since 07.16.2017. ?Has history of medication assisted treatment which MOB reports was on for just a short time. History of IOP as well. ??MOB does endorse use of marijuana during . ?Records indicate use was about 2 times a week during and last use was 2 days prior to delivery. ?Denies use of alcohol or other drugs during this . Maternal and drug screens: ?Maternal drug screen negative at beginning of on 11.12.2019, but positive at delivery on 06.11.2020. Baby's urine is negative and meconium is pending. Support Systems:??MOB reports to have good support from family. ??Records indicate that FOB is also a support. ??MOB reports to trust her counselor Yajaira. ?? ? Assessment Met with MOB at baby's bedside in the [facility]. ??Met with MOB as both socially responsible investment adviser for the [facility] and for hospital of delivery, as MOB needed some follow up related to some depression screening done while MOB as an inpatient herself. ??MOB cooperative and willing to talk to socially responsible investment adviser. ?Quite, flattened affect, tearful at times and laughing when crying, stating that is not sure why keeps crying. ?Periods of crying short. ?Educated MOB to the baby blues and that it is common for mother's to experience bouts of crying in the first couple of weeks. ?Did address however, MOB's depression screening completed. ?MOB agreeable to get back into counseling and indicated counseling as helpful. ?MOB also agreeable to start medications if OBGYN would be willing to prescribe. ??MOB agreeable to [facility] referral for added support. ???Emotional support and supportive listening provided to MOB this date. ??Addressed with MOB possibility of children services involvement due to in utero exposure to marijuana. ??Allowed MOB opportunity to ask questions. ?Spoke with [facility] staff and anticipate baby to discharge later today. ?No voiced concern about mother/child engagement or bonding while on the [facility]. ??MOB was given information previously on shaken baby prevention and safe sleeping. ?Information on mood and anxiety disorders also provided to MOB. ???Safe Plan of Care for Baby: ?Abstain from marijuana use, or other drug use. ?Reports did not use marijuana often, so will not be hard to abstain. ?MOB aware of recommendation not to use marijuana while breast feeding. Interventions: Release to [facility] signed; obtained follow up for 06.21.2020 at 1500 with Yajaira. Also left Yajaira a message to call this conventional mortgage underwriter back with update. Call to Yue, a nurse at Dr. Tan's office. Updated to PHQ9 score and MOB's voiced interest in restarting antidepressant. Yue will discuss with physician and then reach out to MOB. Update MOB. Called [facility] today and referral made for substance exposed in utero, based on mother of baby's endorsement of marijuana use during and maternal drug screen positive at time of delivery. ??Reported baby's admission into the [facility] for respiratory distress issues. ?Brief maternal and infant histories provided. ??Reported strengths as well: ?MOB getting back into counseling, starting medication for depression, and [facility] referral. ?? [facility] referral submitted via the [facility]'s secure web based referral system.??? mood and anxiety disorder packet given, which includes resources for additional support. ? Plan:?No further intervention indicated. MOB has been discharged and now has referrals in place. ?Baby discharging home from the [facility]. ? Referrals to [facility] and [facility] in place. ?MOB also has counseling follow up at [facility] in [place] set and in place. -CARMELIAN Castillo, RN OBSERVATION ?
== END 2020-06-13 14:50 | disposition home or self-care (01) | DRG 542 ==
LOC: WPOUT 14:23 → WP 14:23
PROVIDERS: Admitting Provider Obstetrics & Gynecology; Visit Provider Obstetrics & Gynecology
DX: O60.14X0 Preterm labor third trimester with preterm delivery third trimester, not applicable or unspecified (principal); O99.214 Obesity complicating childbirth; E66.9 Obesity, unspecified; O10.02 Pre-existing essential hypertension complicating childbirth; O98.42 Viral hepatitis complicating childbirth; O70.20 Third degree perineal laceration during delivery, unspecified; B19.20 Unspecified viral hepatitis C without hepatic coma; O76 Abnormality in fetal heart rate and rhythm complicating labor and delivery; O77.0 Labor and delivery complicated by meconium in amniotic fluid; Z3A.36 36 weeks gestation of pregnancy; Z37.0 Single live birth
CPT/HCPCS: 36415; 59025; 59050; 80307; 85027; 86850; 86900; 86901; 87077; 87081; 87186; 87426; 87653; 99218; J7120; G0378

== ENCOUNTER 2021-08-21 16:59 | Emergency (ER) | payer MEDICAID, SELFPAY ==
[2021-08-21 17:00] VITALS: BP 169/94; PULSE 71; RESP 16; TEMP 36.6; O2SAT 100; BMI 22.6
--- NOTE | 2021-08-21 17:13 | EDS_ITS ---
HPI History of Present Illness Chief Complaint: Wound Informant: patient Narrative Narrative: 35-year-old female presenting with bumps in her right armpit. States she noticed this a few days ago. It is painful. No history of similar symptoms in the past. Denies new deodorant. She has recently switched to Dove soap. Denies other complaints. Prior similar symptoms: No Recent Illness/[facility]ospitalization: [facility] Medical History (Updated 08/21/21 @ 17:[address] Melissa Cisneros MD) Anemia affecting Hypertension Home Medications ferrous sulfate 325 mg (65 mg iron) tablet 325 mg PO DAILY 11/12/19 [History Last Taken 04/05/20 10:00] vitamin #56-iron 35 mg and 5 mg-folic acid 1 mg-dha capsule 1 cap PO DAILY 11/12/19 [History Last Taken 04/05/20 10:00] aspirin 81 mg PO DAILY@0800 04/06/20 [History Last Taken 04/05/20 10:00] diphenhydramine HCl 25 mg capsule 25 mg PO TID PRN 05/21/20 [History Last Taken Unknown] promethazine 12.5 mg tablet 12.5 mg PO Q6H PRN #60 tab 05/25/20 [Rx Last Taken Unknown] naproxen 250 - 500 mg PO Q8H PRN PRN #30 tab 06/13/20 [Rx Last Taken Unknown] sertraline 50 mg tablet 50 mg PO DAILY #30 tab 06/17/20 [Rx Last Taken Unknown] cephalexin 500 mg PO Q6 7 Days #28 capsule 08/21/21 [Rx Last Taken Unknown] sulfamethoxazole-trimethoprim [Bactrim DS] 1 tab PO BID #14 tab 08/21/21 [Rx Last Taken Unknown] Allergy/AdvReac Type Severity Reaction Status Date / Time No Known Allergies Allergy Verified 08/21/21 17:00 Family History Father Heart disease Social History (Updated 06/10/20 @ 08:[address] 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 ED Constitutional Constitutional ED: Denies fever(s) ENT ENT ED: Denies rhinorrhea or sore throat Cardiovascular Cardiovascular: Denies chest pain Respiratory/Chest Respiratory/Chest: Denies cough or dyspnea Gastrointestinal Gastrointestinal: Denies abdominal pain Integumentary Reports abscess; Denies rash Neurologic Neurologic: Denies headache(s) Psychiatric Psychiatric: Denies suicidal thoughts EXAM Physical Exam Const Vital Signs: 08/21/21 17:00 Temperature 97.8 F Temperature Source Temporal Pulse Rate 71 Respiratory Rate 16 Blood Pressure 169/94 H Blood Pressure Mean 119 Pulse Ox 100 Oxygen Delivery Method Room Air Positive well nourished and well developed General Appearance ED: well developed HEENT Reports normocephalic and head/scalp atraumatic Eyes PERRL and EOMs intact bilaterally Neck supple General: Negative for tenderness Chest Wall inspection of chest normal Resp normal respiratory effort and clear to auscultation bilaterally Cardio regular rate and regular rhythm GI non-tender and non-distended Palpation: soft; Negative for guarding or rebound tenderness present no CVA tenderness Extremity Extremity Narrative: 3 small indurated lesions right axilla. One 2cm area of fluctuance and erythema Neuro oriented x3 Sensorium / Orientation: alert Psych mental status grossly normal MDM MDM MDM Narrative Medical decision making narrative: Anesthetized with lidocaine. Incised with 11 blade. Small amount of pus was drained. Probed to break up loculations. Irrigated with saline. She was given bactrim and keflex. Advised wound care instructions. Advised return to the ED for worsening complaints. Discharge Plan Triage Chief Complaint: Wound ED Provider: Melissa Cisneros Dx/Rx/DC Orders Clinical Impression: Abscess of axilla, right, Encounter for incision and drainage procedure Instructions: ED Abscess Incision And Drainage Prescriptions: New sulfamethoxazole-trimethoprim [Bactrim DS] 800-160 mg tablet 1 tab PO BID Qty: 14 RF: 0 cephalexin 500 mg capsule 500 mg PO Q6 7 Days Qty: 28 RF: 0 No Action vitamin #56-iron 35 mg and 5 mg-folic acid 1 mg-dha capsule 35 mg iron-5 mg iron-1 mg capsule 1 cap PO DAILY RF: 0 ferrous sulfate 325 mg (65 mg iron) tablet 325 mg PO DAILY RF: 0 diphenhydramine HCl [Benadryl] 25 mg capsule 25 mg PO TID PRNRF: 0 aspirin 81 MG tablet,chewable 81 mg PO DAILY@0800 RF: 0 naproxen 250 MG tablet 250 - 500 mg PO Q8H PRN PRN (Reason: MILD PAIN) Qty: 30 RF: 1 promethazine 12.5 mg tablet 12.5 mg PO Q6H PRN (Reason: nausea and vomiting) Qty: 60 RF: 2 sertraline [Zoloft] 50 mg tablet 50 mg PO DAILY Qty: 30 RF: 12 Primary Care Provider: Care Physician,No Primary Referrals: Jay Jules MD [NON-STAFF] - Care Physician,No Primary [Primary Care Provider] - Disposition Disposition: Home, Self Care
[2021-08-21] MEDS: Smz/Tmp Ds Tablet 1 TABLET PO (17:18)
[2021-08-21] MEDS: Lidocaine 1% (20 ml mdv) 20 ML Vial INFILT (17:18)
[2021-08-21] MEDS: Cephalexin 500 MG Capsule PO (17:18)
[2021-08-21 17:44] VITALS: BP 128/74; PULSE 62; RESP 15; O2SAT 98
== END 2021-08-21 17:44 | disposition home or self-care (01) ==
PROVIDERS: Emergency Provider Emergency Medicine; Visit Provider Emergency Medicine
DX: L02.411 Cutaneous abscess of right axilla (principal); I10 Essential (primary) hypertension; F17.200 Nicotine dependence, unspecified, uncomplicated; Z79.899 Other long term (current) drug therapy; Z79.82 Long term (current) use of aspirin
CPT/HCPCS: 10060; 99284

== ENCOUNTER 2021-09-19 19:29 | Inpatient (IN) | payer MEDICAID, SELFPAY ==
[2021-09-19 19:30] VITALS: BP 138/96; PULSE 92; RESP 15; TEMP 36.6; O2SAT 100; BMI 22.8
[2021-09-19 20:30] VITALS: BP 137/96; PULSE 74; RESP 16; TEMP 36.4; O2SAT 98
--- NOTE | 2021-09-19 20:38 | ED.RN ---
Contract reviewed with patient and she signed. Patient is changing into gown and placing personal items in the bags privided. She has her pants, shirt, shoes and socks plus a [employer] bag and cell phone with her.
[2021-09-19 21:22] LABS: Absolute Lymphocyte Count 2.34 X10^3/uL (0.83-4.51); Absolute Neutrophil Count 2.5 X10^3/uL (2.0-7.7); Basophil# 0.05 X10^3/uL; Basophil% 0.9 % (0-1); Eosinophils% 3.6 % (0-5); Hematocrit 40.9 % (37-47); Hemoglobin 14.2 g/dL (12.0-15.0); Lymphocyte # 2.34 X10^3/ul (0.83-4.51); Lymphocyte % 42.1 % (19-41); Mean Corp Hgb Conc 34.7 g/dL (32-36); Mean Corpuscular Hgb 30.9 pg (27.0-32.0); Mean Corpuscular Volume 88.9 fL (81-99); Mean Platelet Vol. 9.1 fl (6.2-12.0); Monocyte# 0.43 X10^3/uL; Monocyte% 7.7 % (0-10); NRBC Flagged by Analyzer 0 % (0-5); Neutrophil # 2.53 X10^3/uL (2.7-7.7); Neutrophil % 45.5 % (47-70); Platelet Count 169 K/mm3 (150-450); RBC Distribution Width CV 12.5 % (11.6-14.6); RBC Distribution Width SD 41.2 fl (35.1-43.9); White Blood Count 5.6 K/mm3 (4.4-11.0)
[2021-09-19 21:25] VITALS: BP 152/90; PULSE 73; RESP 17; TEMP 37.1; O2SAT 99
[2021-09-19 21:29] LABS: Internal QC Validated? YES +Cl - CLEAR BKGD; Pregnancy, Serum, hCG Quali. NEGATIVE Negative
[2021-09-19 21:38] LABS: Alcohol, Blood (Medical)-Serum < 3.0 mg/dL
[2021-09-19 21:39] LABS: ALB/GLOB Ratio 1.2 RATIO (0.9-2.4); AST(SGOT) 26 U/L (15-37); Alanine Aminotransfer ALT/SGPT 41 U/L (13-56); Albumin, Serum 3.7 g/dL (3.2-5.0); Alkaline Phosphatase 67 U/L (45-117); Anion Gap 5 (5-15); BUN 7 mg/dL (7-18); BUN/Creat Ratio 8.7 RATIO (10-20); Calcium,Total 8.6 mg/dL (8.5-10.1); Chloride 107 mmol/L (98-107); Creatinine, Serum 0.81 mg/dL (0.55-1.02); EST Glomerular Filtration Rate 85 mL/min (>60); Est Glom Filt Rate - Afr Amer 103 mL/min (>60); Estimated Creatinine Clearance 75.94 ml/min; Globulin 3.2 g/dL (2.2-4.2); Glucose 79 mg/dL (74-106); Potassium 3.3 mmol/L (3.5-5.1); Protein, Total 6.9 g/dL (6.4-8.2); Sodium Level 140 mmol/L (136-145)
[2021-09-19 21:47] LABS: Amphetamine Urine VISTA POSITIVE (<1000 ng/mL); Barbiturate Urine VISTA NEGATIVE (< 200 ng/mL); Benzodiazepine Urine VISTA NEGATIVE (< 200 ng/mL); Cocaine Urine VISTA NEGATIVE (< 300 ng/mL); Ecstacy Urine VISTA NEGATIVE (< 500 ng/mL); Methadone Urine VISTA NEGATIVE (< 300 ng/mL); PCP Urine VISTA NEGATIVE (< 25 ng/mL); THC Urine VISTA POSITIVE (< 50 ng/mL); Vista UDS pH Range 6
--- NOTE | 2021-09-19 23:19 | EDS_ITS ---
HPI History of Present Illness Chief Complaint: Substance Abuse Informant: patient Narrative Narrative: Patient presents requesting detox from fentanyl. She states she last used 2 days ago. She had been clean and on subs but relapsed over the weekend. She is working with [facility] and plans to go to residential treatment after her initial detox. [facility] Medical History (Updated 09/19/21 @ 23:[address] Mimi Bassett MD) Anemia affecting Hepatitis C antibody positive in blood Hypertension Home Medications ferrous sulfate 325 mg (65 mg iron) tablet 325 mg PO DAILY 11/12/19 [History Last Taken 04/05/20 10:00] aspirin 81 mg PO DAILY@0800 04/06/20 [History Last Taken 04/05/20 10:00] diphenhydramine HCl 25 mg capsule 25 mg PO TID PRN 05/21/20 [History Last Taken Unknown] naproxen 250 - 500 mg PO Q8H PRN PRN #30 tab 06/13/20 [Rx Last Taken Unknown] amitriptyline 25 mg QHS 09/19/21 [History Last Taken Unknown] hydroxyzine pamoate 25 mg Q6H PRN PRN 09/19/21 [History Last Taken Unknown] Allergy/AdvReac Type Severity Reaction Status Date / Time No Known Allergies Allergy Verified 09/19/21 19:32 Family History Father Heart disease Social History Smoking Status: Light Smoker (<10/day) alcohol intake: never substance use type: does not use caffeine: Yes what type of physical activity do you participate in: none seatbelt use: always do you feel safe at home: Yes additional social history: patient is unemployed 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 [facility] ED Constitutional Constitutional ED: Denies chills or fever(s) Eyes Eyes: Denies change in vision ENT ENT ED: Denies sore throat Cardiovascular Cardiovascular: Denies chest pain Respiratory/Chest Respiratory/Chest: Denies cough or dyspnea Gastrointestinal Gastrointestinal: Denies abdominal pain, nausea or vomiting Genitourinary Genitourinary ED: Denies dysuria Musculoskeletal Musculoskeletal: Denies back pain or neck pain Integumentary Denies rash Neurologic Neurologic: Denies headache(s) or weakness Psychiatric Psychiatric: Reports anxiety; Denies depression Endocrine Endocrinology: Denies polydipsia or polyuria Allergic/Immunologic Allergic/Immunologic ED: Denies urticaria EXAM Physical Exam Const Vital Signs: 09/19/21 19:30 09/19/21 20:30 09/19/21 21:25 Temperature 97.9 F 97.6 F L 98.8 F Temperature Source Temporal Temporal Temporal Pulse Rate 92 74 73 Respiratory Rate 15 16 17 Blood Pressure 138/96 H 137/96 H 152/90 H Blood Pressure Mean 110 109 110 Pulse Ox 100 98 99 Oxygen Delivery Method Room Air Room Air Room Air Positive well nourished and well developed General Appearance ED: well developed HEENT Reports moist mucous membranes Eyes PERRL and EOMs intact bilaterally Neck supple Lymph Lymphatic: no lymphadenopathy noted Chest Wall inspection of chest normal and palpation of chest normal Resp normal respiratory effort and clear to auscultation bilaterally Cardio regular rate and regular rhythm GI soft to palpation, non-tender and non-distended Extremity Extremity Narrative: Track alex noted on the bilateral upper extremities. No sign of secondary infections. Neuro oriented x3 and no sensory deficits noted Sensorium / Orientation: alert Motor Exam: strength 5/5 throughout Psych Mood & Affect: anxious MDM MDM MDM Narrative Medical decision making narrative: Patient given a nicotine patch. Lab work for addiction medicine obtained. Lab Data Attestation: I reviewed the patient's lab results. Labs: Laboratory Results - last 24 hr 09/19/21 09/19/21 09/19/21 20:44 20:51 20:51 WBC 5.6 RBC 4.60 Hgb 14.2 Hct 40.9 MCV 88.9 MCH 30.9 MCHC 34.7 RDW Std Deviation 41.2 RDW Coeff of Smiley 12.5 Plt Count 169 MPV 9.1 Immature Gran % (Auto) 0.200 Neut % (Auto) 45.5 L Lymph % (Auto) 42.1 H [place] % (Auto) 7.7 Eos % (Auto) 3.6 Baso % (Auto) 0.9 Absolute Neuts (auto) 2.5 Absolute Lymphs (auto) 2.34 Nucleated RBC % 0 Sodium 140 Potassium 3.3 L Chloride 107 Carbon Dioxide 28.0 Anion Gap 5 BUN 7 Creatinine 0.81 Estim Creat Clear Calc 75.94 Est GFR (MDRD) Af Amer 103 Est GFR (MDRD) Non-Af 85 BUN/Creatinine Ratio 8.7 L Glucose 79 Calcium 8.6 Total Bilirubin 1.10 H AST 26 ALT 41 Alkaline Phosphatase 67 Total Protein 6.9 Albumin 3.7 Globulin 3.2 Albumin/Globulin Ratio 1.2 Serum , Qual Urine Opiates Screen NEGATIVE Urine Methadone Screen NEGATIVE Ur Barbiturates Screen NEGATIVE Ur Phencyclidine Scrn NEGATIVE Ur Amphetamines Screen POSITIVE H MDMA (Ecstasy) Screen NEGATIVE U Benzodiazepines Scrn NEGATIVE Urine Cocaine Screen NEGATIVE U Cannabinoids Screen POSITIVE H Ur Drug Screen Comment Ethyl Alcohol 09/19/21 09/19/21 20:51 20:51 WBC RBC Hgb Hct MCV MCH MCHC RDW Std Deviation RDW Coeff of Smiley Plt Count MPV Immature Gran % (Auto) Neut % (Auto) Lymph % (Auto) [place] % (Auto) Eos % (Auto) Baso % (Auto) Absolute Neuts (auto) Absolute Lymphs (auto) Nucleated RBC % Sodium Potassium Chloride Carbon Dioxide Anion Gap BUN Creatinine Estim Creat Clear Calc Est GFR (MDRD) Af Amer Est GFR (MDRD) Non-Af BUN/Creatinine Ratio Glucose Calcium Total Bilirubin AST ALT Alkaline Phosphatase Total Protein Albumin Globulin Albumin/Globulin Ratio Serum , Qual NEGATIVE Urine Opiates Screen Urine Methadone Screen Ur Barbiturates Screen Ur Phencyclidine Scrn Ur Amphetamines Screen MDMA (Ecstasy) Screen U Benzodiazepines Scrn Urine Cocaine Screen U Cannabinoids Screen Ur Drug Screen Comment Ethyl Alcohol < 3.0 Treatment and Re-Evaluation Narrative: Lab work largely unremarkable. Potassium slightly low at 3.3. test negative. Tox screen positive for amphetamines and cannabinoids. Patient discussed with hospitalist and patient will be admitted to [facility]. Discharge Plan Triage Chief Complaint: Substance Abuse ED Provider: Mimi Bassett Dx/Rx/DC Orders Clinical Impression: Desire for detoxification Prescriptions: No Action ferrous sulfate 325 mg (65 mg iron) tablet 325 mg PO DAILY RF: 0 diphenhydramine HCl [Benadryl] 25 mg capsule 25 mg PO TID PRN (Reason: Allergic Symptoms) RF: 0 aspirin 81 MG tablet,chewable 81 mg PO DAILY@0800 RF: 0 naproxen 250 MG tablet 250 - 500 mg PO Q8H PRN PRN (Reason: MILD PAIN) Qty: 30 RF: 1 amitriptyline 25 mg tablet 25 mg QHS RF: 0 hydroxyzine pamoate 25 mg capsule 25 mg Q6H PRN PRN (Reason: Anxiety) RF: 0 Primary Care Provider: Care Physician,No Primary Referrals: Care Physician,No Primary [Primary Care Provider] - Disposition Disposition: Acute Care Hospital [facility]
--- NOTE | 2021-09-19 23:28 | HP.PCM.HOS_ITS ---
HPI - General HPI Narrative MARLON OJEDA, is a 35 F with a significant history of hypertension; tobacco abuse; polysubstance abuse; anxiety, depression and borderline disorder who presents for help with detoxification. Fentanyl: Patient reports use of fentanyl. She shoots the fentanyl. Off and on she has been using fentanyl for about 13 years. She is on a Suboxone program (IOP at [facility]). She denies withdrawal symptoms since last day that she took her Suboxone was on the same day of presentation. Last time she used fenta nyl was about 2 days before presentation. Reportedly she relapsed on a fentanyl at 2 weeks before presentation. She uses about a quater gram of fentanyl at each time. In addition she uses about half a gram to 1 g/day. Methamphetamine use: She snorts methamphetamine. Off-and-on she has been using methamphetamine for about 20 years. She reports using a line of meth per day. Last time she used benefit and was on the same day of presentation. [facility] Medical History Anemia affecting Hepatitis C antibody positive in blood Hypertension Home Medications ferrous sulfate 325 mg (65 mg iron) tablet 325 mg PO DAILY 11/12/19 [History Last Taken 04/05/20 10:00] aspirin 81 mg PO DAILY@0800 04/06/20 [History Last Taken 04/05/20 10:00] diphenhydramine HCl 25 mg capsule 25 mg PO TID PRN 05/21/20 [History Last Taken Unknown] naproxen 250 - 500 mg PO Q8H PRN PRN #30 tab 06/13/20 [Rx Last Taken Unknown] amitriptyline 25 mg QHS 09/19/21 [History Last Taken Unknown] hydroxyzine pamoate 25 mg Q6H PRN PRN 09/19/21 [History Last Taken Unknown] Allergy/AdvReac Type Severity Reaction Status Date / Time No Known Allergies Allergy Verified 09/19/21 19:32 Family History Father Heart disease no surgical history Social History Smoking Status: Light Smoker (<10/day) alcohol intake: never substance use type: does not use caffeine: Yes what type of physical activity do you participate in: none seatbelt use: always do you feel safe at home: Yes additional social history: patient is unemployed 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 All other systems were reviewed and are negative. Vital Signs Vital Signs Vital Signs: 09/19/21 19:30 09/19/21 20:30 09/19/21 21:25 Temperature 97.9 F 97.6 F L 98.8 F Temperature Source Temporal Temporal Temporal Pulse Rate 92 74 73 Respiratory Rate 15 16 17 Blood Pressure 138/96 H 137/96 H 152/90 H Blood Pressure Mean 110 109 110 Pulse Ox 100 98 99 Oxygen Delivery Method Room Air Room Air Room Air Weight Weight: 56.699 kg Body Mass Index (BMI) 22.8 Physical Exam Narrative Physical exam: General: Well-nourished, well-developed. Head: Normocephalic, atraumatic, no tenderness Eyes: Vision is grossly intact. EOMI ENT, no trauma, moist mucous membranes, no rhinorrhea Neck: Nontender, full range of motion, no spinal tenderness, deformities, step- off CVS: Regular rate and rhythm. S1-S2 present. No murmur, gallop or rub. Respiratory : clear to auscultation bilaterally, chest wall nontender, no wheezing Abdomen: Soft, nontender, nondistended, normal bowel sounds, no masses : Deferred Back: Nontender, no CVA tenderness, no midline spinal tenderness, deformities, step-offs Extremities: Nontender full range of motion, no trauma Skin: Purplish rash on entire skin. Needle track alex at bilateral antecubital area. Neuro: Alert, oriented, cranial nerves II through XII grossly intact. Psychiatry: Normal mood. Normal affect. Not depressed. Not anxious. Results Lab / Micro Data Result Diagrams: 09/19/21 20:51 09/19/21 20:51 Labs: Laboratory Results - last 24 hr 09/19/21 20:44: Urine Opiates Screen NEGATIVE, Urine Methadone Screen NEGATIVE, Ur Barbiturates Screen NEGATIVE, Ur Phencyclidine Scrn NEGATIVE, Ur Amphetamines Screen POSITIVE H, MDMA (Ecstasy) Screen NEGATIVE, U Benzodiazepines Scrn NEGATIVE, Urine Cocaine Screen NEGATIVE, U Cannabinoids Screen POSITIVE H, Ur Drug Screen Comment 09/19/21 20:51: WBC 5.6, RBC 4.60, Hgb 14.2, Hct 40.9, MCV 88.9, MCH 30.9, MCHC 34.7, RDW Std Deviation 41.2, RDW Coeff of Smiley 12.5, Plt Count 169, MPV 9.1, Immature Gran % (Auto) 0.200, Neut % (Auto) 45.5 L, Lymph % (Auto) 42.1 H, [place] % (Auto) 7.7, Eos % (Auto) 3.6, Baso % (Auto) 0.9, Absolute Neuts (auto) 2.5, Absolute Lymphs (auto) 2.34, Nucleated RBC % 0 09/19/21 20:51: Sodium 140, Potassium 3.3 L, Chloride 107, Carbon Dioxide 28.0, Anion Gap 5, BUN 7, Creatinine 0.81, Estim Creat Clear Calc 75.94, Est GFR (MDRD) Af Amer 103, Est GFR (MDRD) Non-Af 85, BUN/Creatinine Ratio 8.7 L, Glucose 79, Calcium 8.6, Total Bilirubin 1.10 H, AST 26, ALT 41, Alkaline Phosphatase 67, Total Protein 6.9, Albumin 3.7, Globulin 3.2, Albumin/Globulin Ratio 1.2 09/19/21 20:51: Ethyl Alcohol < 3.0 09/19/21 20:51: Serum , Qual NEGATIVE Assessment & Plan Assessment/Plan (1) Desire for detoxification: PLAN: The patient is a 35 year old F with a significant history of methamphetamine abuse; IV drug abuse; and tobacco abuse who presents emergency department with desire for drug detoxification. Opioid dependence and withdrawal Urine drug screen was positive for methamphetamine and cannabinoids. Patient will be started on Subutex and other adjunctive medications: Gabapentin as needed; dicyclomine as needed; Vistaril as needed; methocarbamol as needed; clonidine as needed; Imodium as needed; trazodone as needed and Zofran as needed. Monitor COWS and CINA score Hypertension Her blood pressure is elevated. Reportedly was on home blood pressure medication that she has not for a while. As needed hydralazine ordered. Trend blood pressure and adjust blood pressure medications. Discussed with patient on presentation to look on her records over the phone and notify team of home blood pressure medicine that she was previously on. She thinks she was on clonidine for blood pressures. Tobacco abuse Counseled Nicotine patch prescribed. Hyperbilirubinemia Total bili of 1.1. Trend CMP. Hypokalemia Potassium of 3.3 on presentation. Check magnesium. Trend CMP. DVT prophylaxis Low risk Encourage to ambulate Charges/Coding Visit Charges Inpatient E&M: 11377 Init Hosp L3
[2021-09-20] VITALS (8 sets, daily range): BP systolic 114–141; BP diastolic 81–94; PULSE 70–86; RESP 16–20; TEMP 36.6–37; O2SAT 99–100; BMI 22.1
[2021-09-20 06:56] LABS: ALB/GLOB Ratio 1.2 RATIO (0.9-2.4); AST(SGOT) 26 U/L (15-37); Alanine Aminotransfer ALT/SGPT 36 U/L (13-56); Albumin, Serum 3.2 g/dL (3.2-5.0); Alkaline Phosphatase 59 U/L (45-117); Anion Gap 8 (5-15); BUN 8 mg/dL (7-18); BUN/Creat Ratio 12.8 RATIO (10-20); Calcium,Total 8.2 mg/dL (8.5-10.1); Chloride 109 mmol/L (98-107); Creatinine, Serum 0.63 mg/dL (0.55-1.02); EST Glomerular Filtration Rate 114 mL/min (>60); Est Glom Filt Rate - Afr Amer 138 mL/min (>60); Estimated Creatinine Clearance 97.64 ml/min; Globulin 2.7 g/dL (2.2-4.2); Glucose 101 mg/dL (74-106); Magnesium 2.1 mg/dL (1.6-2.6); Potassium 3.1 mmol/L (3.5-5.1); Protein, Total 5.9 g/dL (6.4-8.2); Sodium Level 141 mmol/L (136-145)
[2021-09-20] MEDS: Methocarbamol 750 MG Tablet 1500 MG PO ×2 (07:32→17:55)
[2021-09-20] MEDS: Buprenorphine HCl 2 MG TAB.SUBL SL ×3 (07:32→21:59)
[2021-09-20] MEDS: hydrOXYzine PAM 25 MG Capsule 50 MG PO ×2 (07:32→17:04)
[2021-09-20] MEDS: Ferrous Sulfate 325 MG Tablet PO (08:23)
[2021-09-20] MEDS: Aspirin 81 MG TAB.CHEW PO (08:23)
--- NOTE | 2021-09-20 08:27 | PN.HOSP_ITS ---
Subjective Subjective Restless legs. Objective Data Objective Data Vital Signs: Vital Signs Temp Pulse Resp BP Pulse Ox 36.6 C 83 20 H 134/85 H 100 09/20/21 06:18 09/20/21 06:18 09/20/21 06:18 09/20/21 06:18 09/20/21 06:18 Oxygen Delivery Method Room Air Weight: 54.8 kg Body Mass Index (BMI) 22.1 Lab / Micro Data Result Diagrams: 09/19/21 20:51 09/20/21 06:00 Labs: Laboratory Results - last 24 hr 09/19/21 20:44: Urine Opiates Screen NEGATIVE, Urine Methadone Screen NEGATIVE, Ur Barbiturates Screen NEGATIVE, Ur Phencyclidine Scrn NEGATIVE, Ur Amphetamines Screen POSITIVE H, MDMA (Ecstasy) Screen NEGATIVE, U Benzodiazepines Scrn NEGATIVE, Urine Cocaine Screen NEGATIVE, U Cannabinoids Screen POSITIVE H, Ur Drug Screen Comment 09/19/21 20:51: WBC 5.6, RBC 4.60, Hgb 14.2, Hct 40.9, MCV 88.9, MCH 30.9, MCHC 34.7, RDW Std Deviation 41.2, RDW Coeff of Smiley 12.5, Plt Count 169, MPV 9.1, Immature Gran % (Auto) 0.200, Neut % (Auto) 45.5 L, Lymph % (Auto) 42.1 H, Green % (Auto) 7.7, Eos % (Auto) 3.6, Baso % (Auto) 0.9, Absolute Neuts (auto) 2.5, Absolute Lymphs (auto) 2.34, Nucleated RBC % 0 09/19/21 20:51: Sodium 140, Potassium 3.3 L, Chloride 107, Carbon Dioxide 28.0, Anion Gap 5, BUN 7, Creatinine 0.81, Estim Creat Clear Calc 75.94, Est GFR (M DRD) Af Amer 103, Est GFR (MDRD) Non-Af 85, BUN/Creatinine Ratio 8.7 L, Glucose 79, Calcium 8.6, Total Bilirubin 1.10 H, AST 26, ALT 41, Alkaline Phosphatase 67, Total Protein 6.9, Albumin 3.7, Globulin 3.2, Albumin/Globulin Ratio 1.2 09/19/21 20:51: Ethyl Alcohol < 3.0 09/19/21 20:51: Serum , Qual NEGATIVE 09/20/21 06:00: Sodium 141, Potassium 3.1 L, Chloride 109 H, Carbon Dioxide 24.0, Anion Gap 8, BUN 8, Creatinine 0.63, Estim Creat Clear Calc 97.64, Est GFR (MDRD) Af Amer 138, Est GFR (MDRD) Non-Af 114, BUN/Creatinine Ratio 12.8, Glucose 101, Calcium 8.2 L, Magnesium 2.1, Total Bilirubin 0.90, AST 26, ALT 36, Alkaline Phosphatase 59, Total Protein 5.9 L, Albumin 3.2, Globulin 2.7, Albumin/Globulin Ratio 1.2 Physical Exam Const alert and no apparent distress Resp normal respiratory effort, no retractions, no use of accessory muscles and clear to auscultation bilaterally Cardio regular rate, regular rhythm, S1 normal heart sound and S2 normal heart sound GI normal to inspection, nondistended, normoactive bowel sounds, soft to palpation, non-tender and non-distended Extremity normal to inspection Assessment & Plan Assessment/Plan (1) Desire for detoxification: PLAN: 1. Opioid dependence and withdrawal * Urine drug screen was positive for methamphetamine and cannabinoids. * Patient will be started on Subutex and other adjunctive medications: Gabapentin as needed; dicyclomine as needed; Vistaril as needed; methocarbamol as needed; clonidine as needed; Imodium as needed; trazodone as needed and Zofran as needed. * Monitor COWS and CINA score * Addiction to facilitate outpt program. 2. Hypertension * fair control * Her blood pressure is elevated. * Reportedly was on home blood pressure medication that she has not for a while. As needed hydralazine ordered. Trend blood pressure and adjust blood pressure medications. Discussed with patient on presentation to look on her records over the phone and notify team of home blood pressure medicine that she was previously on. She thinks she was on clonidine for blood pressures. 3. Tobacco abuse * Nicotine patch prescribed. 4. Hyperbilirubinemia * improved * outpt follow up 5. Hypokalemia * ongoing * replace * magnesium WNL 6. DVT prophylaxis * Low risk * Encourage to ambulate Charges/Coding Visit Charges Inpatient E&M: 77863 Subs Hosp L2
--- NOTE | 2021-09-20 09:25 | ADDICTION ---
This check writer met with PT to conduct ASAM, MSE, AUDIT, DUDIT assessments and to plan for d/c. PT A+Ox4 and participated actively. All assessments completed and placed in PT's chart. PT plans to f/u with recovery treatment services, however she wanted a day to decide. This worker offered resources based on her listed wants and needs. She will inform TW tomorrow of her decision. PT did not indicate a need for transportation post d/c from [facility].
[2021-09-20] MEDS: Ibuprofen 400 MG Tablet PO (09:42)
[2021-09-20] MEDS: Potassium Chloride Oral Tablet 20 MEQ 40 MEQ PO ×2 (10:26→16:59)
[2021-09-20] MEDS: hydrALAZINE 25 MG Tablet PO ×2 (11:51→17:55)
[2021-09-20] MEDS: Gabapentin 300 MG Capsule PO (11:51)
[2021-09-20] MEDS: cloNIDine HCl 0.1 MG Tablet PO (17:03)
[2021-09-20] MEDS: Dicyclomine 10 MG Capsule 20 MG PO (17:55)
[2021-09-20] MEDS: Amitriptyline 25 MG Tablet PO (21:59)
[2021-09-21 04:25] VITALS: BP 127/83; PULSE 73; RESP 18; TEMP 36.7; O2SAT 99
[2021-09-21 05:48] LABS: Anion Gap 6 (5-15); BUN 15 mg/dL (7-18); Calcium,Total 8.6 mg/dL (8.5-10.1); Chloride 111 mmol/L (98-107); Creatinine, Serum 0.71 mg/dL (0.55-1.02); EST Glomerular Filtration Rate 98 mL/min (>60); Est Glom Filt Rate - Afr Amer 119 mL/min (>60); Estimated Creatinine Clearance 86.64 ml/min; Glucose 94 mg/dL (74-106); Potassium 4.3 mmol/L (3.5-5.1); Sodium Level 140 mmol/L (136-145)
[2021-09-21] MEDS: Buprenorphine HCl 2 MG TAB.SUBL SL ×3 (06:07→22:22)
[2021-09-21] MEDS: Potassium Chloride Oral Tablet 20 MEQ 40 MEQ PO ×2 (07:48→18:02)
[2021-09-21] MEDS: Ibuprofen 400 MG Tablet PO (07:48)
[2021-09-21] MEDS: Gabapentin 300 MG Capsule PO (07:48)
[2021-09-21] MEDS: Methocarbamol 750 MG Tablet 1500 MG PO ×3 (07:48→22:22)
[2021-09-21] MEDS: Ferrous Sulfate 325 MG Tablet PO (07:48)
[2021-09-21] MEDS: Aspirin 81 MG TAB.CHEW PO (07:50)
--- NOTE | 2021-09-21 07:56 | PN.HOSP_ITS ---
Subjective Subjective Feels better. Restless legs improved. Tolerating PO. Diarrhea. Objective Data Objective Data Vital Signs: Vital Signs Temp Pulse Resp BP Pulse Ox 36.7 C 73 18 127/83 H 99 09/21/21 04:25 09/21/21 04:25 09/21/21 04:25 09/21/21 04:25 09/21/21 04:25 Oxygen Delivery Method Room Air Weight: 54.8 kg Body Mass Index (BMI) 22.1 Intake & Output: Intake and Output for Last 24 Hours 09/19/21 09/20/21 09/21/21 23:59 23:59 23:59 Intake Total 800 / 800 Balance 800 / 800 Lab / Micro Data Result Diagrams: 09/19/21 20:51 09/21/21 04:50 Labs: Laboratory Results - last 24 hr 09/21/21 04:50: Sodium 140, Potassium 4.3, Chloride 111 H, Carbon Dioxide 23.0, Anion Gap 6, BUN 15, Creatinine 0.71, Estim Creat Clear Calc 86.64, Est GFR (MDRD) Af Amer 119, Est GFR (MDRD) Non-Af 98, BUN/Creatinine Ratio 21.0 H, Glucose 94, Calcium 8.6 Physical Exam Const alert and no apparent distress Psych affect normal Mood & Affect: depressed Assessment & Plan Assessment/Plan (1) Desire for detoxification: PLAN: 1. Opioid dependence and withdrawal * Urine drug screen was positive for methamphetamine and cannabinoids. * Patient will be started on Subutex and other adjunctive medications: Gabapentin as needed; dicyclomine as needed; Vistaril as needed; methocarbamol as needed; clonidine as needed; Imodium as needed; trazodone as needed and Zofran as needed. * Monitor COWS and CINA score * Addiction to facilitate outpt program. Pt cannot do a residential program (she needs to see her son weekly). Suspect she will do an IOP. 2. Hypertension * fair control * Reportedly was on home blood pressure medication that she has not for a while. As needed hydralazine ordered. Trend blood pressure and adjust blood pressure medications. Discussed with patient on presentation to look on her records over the phone and notify team of home blood pressure medicine that she was previously on. 3. Tobacco abuse * Nicotine patch prescribed. 4. Hyperbilirubinemia * improved * outpt follow up 5. Hypokalemia * resolved * replace * magnesium WNL 6. DVT prophylaxis * Low risk * Encourage to ambulate Charges/Coding Visit Charges Inpatient E&M: 32913 Subs Hosp L1
[2021-09-21 08:57] VITALS: BP 128/83; PULSE 82; RESP 18; TEMP 36.3; O2SAT 98
[2021-09-21] MEDS: Escitalopram Oxalate 10 MG Tablet PO (10:53)
--- NOTE | 2021-09-21 10:55 | ADDICTION ---
This process description writer met with PT to conduct ASAM, MSE, AUDIT, DUDIT assessments and to plan for d/c. PT A+Ox4 and participated actively. All assessments completed and placed in PT's chart. PT plans to f/u with follow-up treatment services, she refused [facility] and reports she wants to discuss it with her family upon d/c. This worker offered resources based on her listed wants and needs. PT did not indicate a need for transportation post d/c from [facility].
[2021-09-21] MEDS: Loperamide 2 MG Capsule PO ×2 (15:14→22:22)
[2021-09-21] MEDS: Dicyclomine 10 MG Capsule 20 MG PO ×2 (15:14→22:22)
[2021-09-21] MEDS: hydrOXYzine PAM 25 MG Capsule 50 MG PO ×2 (15:15→22:22)
[2021-09-21 15:53] VITALS: BP 139/87; PULSE 88; RESP 18; TEMP 36.5; O2SAT 98
[2021-09-21 22:16] VITALS: BP 139/85; PULSE 80; RESP 18; TEMP 37.3; O2SAT 100
[2021-09-21] MEDS: Amitriptyline 25 MG Tablet PO (22:22)
[2021-09-22 04:32] VITALS: BP 129/85; PULSE 78; RESP 18; TEMP 37; O2SAT 99
[2021-09-22] MEDS: Buprenorphine HCl 2 MG TAB.SUBL SL (06:38)
[2021-09-22] MEDS: Aspirin 81 MG TAB.CHEW PO (08:06)
[2021-09-22] MEDS: Escitalopram Oxalate 10 MG Tablet PO (08:06)
[2021-09-22] MEDS: Ferrous Sulfate 325 MG Tablet PO (08:06)
[2021-09-22] MEDS: Potassium Chloride Oral Tablet 20 MEQ 40 MEQ PO (08:06)
[2021-09-22] MEDS: Gabapentin 300 MG Capsule PO (08:10)
[2021-09-22] MEDS: Ibuprofen 400 MG Tablet PO (08:10)
[2021-09-22 08:39] VITALS: BP 132/92; PULSE 78; RESP 16; TEMP 36.8; O2SAT 100
--- NOTE | 2021-09-22 11:00 | DS.PCM_ITS ---
Providers Date of Admission: 09/19/21 Primary Care Physician: Morena Primary Care Phys Reason For Visit: DESIRE FOR DETOXIFICATION Diagnosis Discharge Diagnosis (1) Desire for detoxification: Status: Acute Medications at Discharge Home Medications ferrous sulfate 325 mg (65 mg iron) tablet 325 mg PO DAILY 11/12/19 aspirin 81 mg PO DAILY@0800 04/06/20 diphenhydramine HCl 25 mg capsule 25 mg PO TID PRN 05/21/20 naproxen 250 - 500 mg PO Q8H PRN PRN #30 tab 06/13/20 amitriptyline 25 mg QHS 09/19/21 hydroxyzine pamoate 25 mg Q6H PRN PRN 09/19/21 escitalopram oxalate 10 mg PO DAILY #0 tab 09/22/21 Hospital Course Operations None Procedures None Summary of Care Provided Minutes Spent on Discharge: 26 Hospital Course: 1. Opioid dependence and withdrawal Urine drug screen was positive for methamphetamine and cannabinoids. Patient completed buprenorphine taper. Monitor COWS and CINA score Pt cannot do a residential program (she needs to see her son weekly). Patient continue with intensive outpatient program at her current program. 2. Hypertension fair control Reportedly was on home blood pressure medication that she has not for a while. As needed hydralazine ordered. Trend blood pressure and adjust blood pressure medications. Discussed with patient on presentation to look on her records over the phone and notify team of home blood pressure medicine that she was previous ly on. 3. Tobacco abuse Nicotine patch prescribed. 4. Hyperbilirubinemia improved outpt follow up 5. Hypokalemia resolved replace magnesium WNL 6. Depression continue with Lexapro 10 mg that she takes at home. Physical Exam Const alert and no apparent distress HEENT normocephalic and head/scalp atraumatic Weight / BMI Weight Weight: 54.8 kg Body Mass Index (BMI) 22.1 ABG / Lab / Microbiology Data Result Diagrams: 09/19/21 20:51 09/21/21 04:50 D/C Instructions Discharge Diet: No restrictions Please Follow Up With: Addiction Program When: 1 week Meaningful Use Info Meaningful Use Diagnoses (Choose all that apply): None applicable Discharge Plan Admission Admit Date/Time: 09/19/21 23:22 Primary Reason for Your Visit: acute opiate withdrawal. Attending Provider: Juan C Alexandra Primary Care Provider: Care Physician,No Primary Consulting Providers: Dayne Holcomb Discharge Orders/Prescriptions Prescriptions: New escitalopram oxalate 10 mg Tablet 10 mg PO DAILY Qty: 0 RF: 0 Continued ferrous sulfate 325 mg (65 mg iron) tablet 325 mg PO DAILY RF: 0 diphenhydramine HCl [Benadryl] 25 mg capsule 25 mg PO TID PRN (Reason: Allergic Symptoms) RF: 0 aspirin 81 MG tablet,chewable 81 mg PO DAILY@0800 RF: 0 naproxen 250 MG tablet 250 - 500 mg PO Q8H PRN PRN (Reason: MILD PAIN) Qty: 30 RF: 1 amitriptyline 25 mg tablet 25 mg QHS RF: 0 hydroxyzine pamoate 25 mg capsule 25 mg Q6H PRN PRN (Reason: Anxiety) RF: 0 Referrals / Follow Up: Care Physician,No Primary [Primary Care Provider] - Disposition Disposition (needs filled in before D/C Order can be placed): Home, Self Care Charges/Coding Visit Charges Inpatient E&M: 05562 Disch Hosp
--- NOTE | 2021-09-22 11:49 | ADDICTION ---
This worker met w/pt to discuss d/c planning and resources. Pt declined and resources and reported she was not interested.
== END 2021-09-22 11:36 | disposition home or self-care (01) | DRG 773 ==
LOC: ED 23:24 → MS3 09-20 00:07
PROVIDERS: Admitting Provider Hospitalist; Emergency Provider Emergency Medicine
DX: F11.23 Opioid dependence with withdrawal (principal); E80.7 Disorder of bilirubin metabolism, unspecified; F15.10 Other stimulant abuse, uncomplicated; F17.200 Nicotine dependence, unspecified, uncomplicated; I10 Essential (primary) hypertension; E87.6 Hypokalemia; F41.9 Anxiety disorder, unspecified; Z79.82 Long term (current) use of aspirin; Z79.899 Other long term (current) drug therapy; F32.A Depression, unspecified
CPT/HCPCS: 36415; 80048; 80053; 80307; 82077; 83735; 84703; 85025; 97802; 99283

== ENCOUNTER 2021-12-17 18:40 | Emergency (ER) | payer MEDICAID, SELFPAY ==
[2021-12-17 18:41] VITALS: BP 137/97; PULSE 89; RESP 15; TEMP 37; O2SAT 100; BMI 22.8
--- NOTE | 2021-12-17 19:51 | MRI_ITS ---
STUDY: MRI LUMBAR SPINE WITH AND WITHOUT CONTRAST REASON FOR EXAM: Female, 36 years old. midline back pain, new foot drop- right TECHNIQUE: Standardized fat and water weighted pulse sequences were obtained in the sagittal and axial planes. dotarem 10ml iv was administered for the contrast portion of the examination. COMPARISON: None FINDINGS: The distal cord shows normal signal and contour with no intramedullary mass lesion. Conus terminates at the L1 vertebral body level. More peripheral nerve roots are without clumping or tethering. Intervertebral disc spacing is normal throughout and there is are no areas of disc herniation causing central spinal canal stenosis or nerve root impingement. Mild facet arthropathy L4-5 and L5-S1 levels. Abnormal low T1, high T2 signal and enhancement involving superior and inferior articular facets of the right L4-5 facet joint showing small amount of increased facet joint fluid. Abnormal signal and enhancement extends into the right L4 and right L5 pedicles and into the inferior articular facet at L5. The L5-S1 facet joint however shows no abnormal increased fluid. There is however some degenerative changes at this level. Postcontrast enhanced images do show some soft tissue enhancement around the right L4-5 facet joint No abnormal enhancement extending into the neural foramina and the exiting right L4 nerve root is normal size, signal and without enhancement. There is trace right neural foraminal narrowing with minimal exiting right L4 nerve root impingement, similar on the contralateral side. There is some subtle increased T2 signal and enhancement in the left erector spinae muscle. MRI/Spine Lumbar W/WO Contrast IMPRESSION: Findings likely representing right L4-5 facet joint infection with surrounding osseous abnormal signal and enhancement likely representing osteomyelitis. Mild adjacent soft tissue enhancement without associated enhancement extending into the neural foramina. Right exiting L4 nerve root is normal in appearance with minimal nerve root impingement noted, similar to the contralateral side from degenerative changes at this level. No areas of nerve root impingement or central spinal canal stenosis. Left erector spinae muscle patchy area of high T2 signal and enhancement likely representing myositis which may be infectious or inflammatory in etiology. N.B. : The above Results were Read Back by Brayden Tavera DO to ALISA Tyson, and understanding confirmed on 12/17/2021 23:08:26 (ET). Electronically Signed: Brayden Tavera DO at 23:12 EDT ,
[2021-12-17 20:16] LABS: Absolute Lymphocyte Count 2.21 X10^3/uL (0.83-4.51); Absolute Neutrophil Count 4.8 X10^3/uL (2.0-7.7); Basophil# 0.05 X10^3/uL; Basophil% 0.7 % (0-1); Eosinophil# 0.15 X10^3/uL; Hematocrit 42.5 % (37-47); Hemoglobin 14.5 g/dL (12.0-15.0); Lymphocyte # 2.21 X10^3/ul (0.83-4.51); Lymphocyte % 29.4 % (19-41); Mean Corp Hgb Conc 34.1 g/dL (32-36); Mean Corpuscular Hgb 31.3 pg (27.0-32.0); Mean Corpuscular Volume 91.6 fL (81-99); Monocyte# 0.27 X10^3/uL; Monocyte% 3.6 % (0-10); NRBC Flagged by Analyzer 0 % (0-5); Neutrophil # 4.83 X10^3/uL (2.7-7.7); Neutrophil % 64.2 % (47-70); Platelet Count 236 K/mm3 (150-450); RBC Distribution Width SD 43.3 fl (35.1-43.9); Red Blood Count 4.64 M/mm3 (4.2-5.4); White Blood Count 7.5 K/mm3 (4.4-11.0)
[2021-12-17 20:28] LABS: Erythrocyte Sedimentation Rate 6 mm/hr (0-30)
[2021-12-17 20:30] LABS: Bacteria 0 SEEN /hpf (None Seen); Mucous, Urine 0 SEEN /hpf (<or=2+); Red Blood Cells-Urine 0 SEEN /hpf (0-5); Squamous Epithelial Cells - UA 0 SEEN /hpf (5-10)
[2021-12-17 20:33] LABS: Color, Urine Yellow (Yellow); Glucose, Dipstick Normal (Normal); Ketone-Dipstick Negative (Negative); Leukocyte Esterase-Dipstick 100 /ul (Negative); Nitrite-Dipstick Negative (Negative); Occult Blood-Urine Negative /ul (Negative); Protein-Dipstick Negative (Negative); Urine Bilirubin Dipstick Negative (Negative); Urine Clarity Clear (Clear); Urine Urobilinogen 1 mg/dl (Normal); Urine pH 6.5 (5.0 - 8.0)
[2021-12-17 20:45] LABS: Anion Gap 5 (5-15); BUN 11 mg/dL (7-18); BUN/Creat Ratio 12.1 RATIO (10-20); CRP, High Sensitivity Cardiac < 0.16 mg/L; Calcium,Total 8.7 mg/dL (8.5-10.1); Chloride 109 mmol/L (98-107); Creatinine, Serum 0.91 mg/dL (0.55-1.02); EST Glomerular Filtration Rate 74 mL/min (>60); Est Glom Filt Rate - Afr Amer 89 mL/min (>60); Estimated Creatinine Clearance 66.95 ml/min; Glucose 79 mg/dL (74-106); Potassium 3.4 mmol/L (3.5-5.1); Sodium Level 140 mmol/L (136-145)
[2021-12-17 20:46] LABS: Amphetamine Urine VISTA POSITIVE (<1000 ng/mL); Barbiturate Urine VISTA NEGATIVE (< 200 ng/mL); Benzodiazepine Urine VISTA NEGATIVE (< 200 ng/mL); Cocaine Urine VISTA NEGATIVE (< 300 ng/mL); Ecstacy Urine VISTA NEGATIVE (< 500 ng/mL); Methadone Urine VISTA NEGATIVE (< 300 ng/mL); PCP Urine VISTA NEGATIVE (< 25 ng/mL); THC Urine VISTA POSITIVE (< 50 ng/mL); Vista UDS pH Range 6
[2021-12-17 20:53] LABS: Internal QC Validated? YES +Cl - CLEAR BKGD; Pregnancy, Urine Negative Negative; White Blood Cells 0-5 SEEN /hpf (0-5)
[2021-12-17 21:05] VITALS: BP 135/96; PULSE 83; RESP 18; O2SAT 99
--- NOTE | 2021-12-17 22:36 | ED.VIS.LOWEX ---
[facility] <Dr. Aaliyah Vela DO - Last Filed: 12/20/21 09:39> History of Present Illness Chief Complaint: Lower Extremity Injury Informant: patient Narrative Narrative: Patient is a 36-year-old female with history of opioid addiction as well as IV drug use presenting with right foot drop. Patient states she fell asleep funny about a week ago and since then she has not been able to lift up her right foot. She states she is falling and tripping because of this. She denies any associated pain. Patient notes that for the past 2 nights she has been having night sweats. Denies any fevers. Has been having urinary issues since giving to her child last year but denies any acute urinary complaints. Denies any issues with incontinence.Under further questioning she does admit to some low back pain. Denies any fevers or new rash. No other complaints at this time. Last used IV drugs approximately 1 month ago. [facility] <Dr. Aaliyah Vela DO - Last Filed: 12/20/21 09:39> [facility] Medical History Anemia affecting Family history of cleft lip and palate Hepatitis C antibody positive in blood History of abnormal cervical Pap smear History of heroin abuse History of pre-eclampsia Hypertension Substance abuse Home Medications ferrous sulfate 325 mg (65 mg iron) tablet 325 mg PO DAILY anemia 11/12/19 [History Last Taken 09/18/21] aspirin 81 mg chewable tablet 81 mg PO DAILY@0800 Check with primary doctor 04/06/20 [History Last Taken 09/18/21] diphenhydramine HCl 25 mg capsule (Benadryl) 25 mg PO TID PRN Allergic Symptoms 05/21/20 [History Last Taken 09/18/21] naproxen 250 mg tablet 250 - 500 mg PO Q8H PRN PRN MILD PAIN #30 tabs 06/13/20 [Rx Last Taken 09/18/21] amitriptyline 25 mg tablet 25 mg QHS depression 09/19/21 [History Last Taken 09/18/21] hydroxyzine pamoate 25 mg capsule 25 mg Q6H PRN PRN Anxiety 09/19/21 [History Last Taken 09/18/21] escitalopram oxalate 10 mg tablet 10 mg PO DAILY #0 tabs 09/22/21 [Rx Last Taken Unknown] Allergy/AdvReac Type Severity Reaction Status Date / Time No Known Allergies Allergy Verified 12/17/21 18:46 Family History Father Heart disease Social History Smoking Status: Light Smoker (<10/day) alcohol intake: never substance use type: does not use caffeine: Yes what type of physical activity do you participate in: none seatbelt use: always do you feel safe at home: Yes additional social history: patient is unemployed [employer]- 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 Aaliyah Vela DO - Last Filed: 12/20/21 09:39> ROS ED Constitutional Constitutional ED: Reports sweats; Denies chills or fever(s) Eyes Eyes: Denies blurry vision or change in vision ENT ENT ED: Denies rhinorrhea or sore throat Cardiovascular Cardiovascular: Denies chest pain or palpitations Respiratory/Chest Respiratory/Chest: Denies cough Gastrointestinal Gastrointestinal: Denies abdominal pain, diarrhea, nausea or vomiting Genitourinary Genitourinary ED: Denies dysuria or hematuria Musculoskeletal Musculoskeletal: Reports back pain; Denies arthralgias or neck pain Integumentary Reports other Details: Rash from psoriasis?chronic and unchanged ; Denies Abrasions Neurologic Neurologic: Reports weakness; Denies headache(s) or paresthesias Psychiatric Psychiatric: Denies anxiety Hematologic/Lymphatic Hematologic/Lymphatic: Denies easy bleeding or easy bruising EXAM <Dr. Aaliyah Vela, - Last Filed: 12/20/21 09:39> Physical Exam Const Vital Signs: 12/17/21 18:41 12/17/21 21:05 12/17/21 23:28 Temperature 98.6 F Temperature Source Temporal Pulse Rate 89 83 63 Respiratory Rate 15 18 18 Blood Pressure 137/97 H 135/96 H 142/91 H Blood Pressure Mean 110 109 108 Pulse Ox 100 99 100 Oxygen Delivery Method Room Air Room Air Room Air Positive well nourished and well developed General Appearance ED: well developed and NAD HEENT Reports moist mucous membranes normocephalic and atraumatic Neck full ROM and supple Neck Narrative: No meningeal signs Chest Wall inspection of chest normal and palpation of chest normal Resp normal respiratory effort and no retractions Cardio regular rate, regular rhythm and no murmurs Cardio Narrative: 2+ bilateral DP pulses GI non-tender, non-distended and no masses Back/Spine no CVA tenderness Lumbar Spine / Lower Back: lumbar spinal tenderness L5 Extremity Extremity Narrative: On the right, patient is not able to dorsiflex her foot or dorsiflex her great toe on exam. She is able to plantarflex her great toe and her foot. Normal Adorno test. General Extremety ED: Negative for cyanosis, edema or weight-bearing difficulty General Extremity: Negative for cyanosis, edema or weight-bearing difficulty Neuro oriented x3, CN's II-XII intact bilaterally, moves all extremities and no sensory deficits noted Neuro Narrative: Right foot drop present. Patient does have subjective paresthesias on the base of the right foot. No other focal neurologic deficits. Sensorium / Orientation: alert, oriented to person, oriented to place and oriented to time Psych mental status grossly normal Skin no wounds Skin Narrative: Scattered erythematous scaling rash on the extremities consistent with psoriasis <Dr. Sigifredo Ferrara, DO - Last Filed: 12/18/21 04:23> Physical Exam Const Vital Signs: 12/17/21 18:41 12/17/21 21:05 12/17/21 23:28 Temperature 98.6 F Temperature Source Temporal Pulse Rate 89 83 63 Respiratory Rate 15 18 18 Blood Pressure 137/97 H 135/96 H 142/91 H Blood Pressure Mean 110 109 108 Pulse Ox 100 99 100 Oxygen Delivery Method Room Air Room Air Room Air [facility] <Dr. Aaliyah Vela, DO - Last Filed: 12/20/21 09:39> [facility] Narrative Medical decision making narrative: Patient is evaluated for 1 week of difficulty walking. Eye exam patient has right foot drop. She also has some midline back tenderness in the lumbar spine and history of IV drug use. I am concerned she could possibly have an epidural abscess causing her symptoms. She is hemodynamically stable. Will obtain lab work and MRI. Patient's inflammatory markers including CRP, ESR and white blood cell count are normal. Urinalysis is negative. Patient's postvoid urine volume is 150 cc. MRI still pending. Patient signed out to oncoming physician, Dr. Ferrara, pending MRI results. If MRI negative I anticipate patient can follow-up outpatient. Lab Data Labs: Laboratory Results - last 24 hr 12/17/21 12/17/21 12/17/21 20:00 20:00 20:22 WBC 7.5 RBC 4.64 Hgb 14.5 Hct 42.5 MCV 91.6 MCH 31.3 MCHC 34.1 RDW Std Deviation 43.3 RDW Coeff of Smiley 13.0 Plt Count 236 MPV 9.0 Immature Gran % (Auto) 0.100 Neut % (Auto) 64.2 Lymph % (Auto) 29.4 Chicot % (Auto) 3.6 Eos % (Auto) 2.0 Baso % (Auto) 0.7 Absolute Neuts (auto) 4.8 Absolute Lymphs (auto) 2.21 Nucleated RBC % 0 ESR 6 Sodium 140 Potassium 3.4 L Chloride 109 H Carbon Dioxide 26.0 Anion Gap 5 BUN 11 Creatinine 0.91 Estim Creat Clear Calc 66.95 Est GFR (MDRD) Af Amer 89 Est GFR (MDRD) Non-Af 74 BUN/Creatinine Ratio 12.1 Glucose 79 Calcium 8.7 C-React Prot High Sens < 0.16 Urine Color Yellow Urine Clarity Clear Urine pH 6.5 Ur Specific Franklin 1.010 Urine Protein Negative Urine Glucose (UA) Normal Urine Ketones Negative Urine Occult Blood Negative Urine Nitrite Negative Urine Bilirubin Negative Urine Urobilinogen 1 H Ur Leukocyte Esterase 100 H Urine RBC 0 SEEN Urine WBC 0-5 SEEN Ur Squamous Epith Cells 0 SEEN Urine Bacteria 0 SEEN Urine Mucus 0 SEEN Urine Test Negative Urine Opiates Screen Urine Methadone Screen Ur Barbiturates Screen Ur Phencyclidine Scrn Ur Amphetamines Screen MDMA (Ecstasy) Screen U Benzodiazepines Scrn Urine Cocaine Screen U Cannabinoids Screen Ur Drug Screen Comment 12/17/21 20:22 WBC RBC Hgb Hct MCV MCH MCHC RDW Std Deviation RDW Coeff of Smiley Plt Count MPV Immature Gran % (Auto) Neut % (Auto) Lymph % (Auto) Chicot % (Auto) Eos % (Auto) Baso % (Auto) Absolute Neuts (auto) Absolute Lymphs (auto) Nucleated RBC % ESR Sodium Potassium Chloride Carbon Dioxide Anion Gap BUN Creatinine Estim Creat Clear Calc Est GFR (MDRD) Af Amer Est GFR (MDRD) Non-Af BUN/Creatinine Ratio Glucose Calcium C-React Prot High Sens Urine Color Urine Clarity Urine pH Ur Specific Franklin Urine Protein Urine Glucose (UA) Urine Ketones Urine Occult Blood Urine Nitrite Urine Bilirubin Urine Urobilinogen Ur Leukocyte Esterase Urine RBC Urine WBC Ur Squamous Epith Cells Urine Bacteria Urine Mucus Urine Test Urine Opiates Screen NEGATIVE Urine Methadone Screen NEGATIVE Ur Barbiturates Screen NEGATIVE Ur Phencyclidine Scrn NEGATIVE Ur Amphetamines Screen POSITIVE H MDMA (Ecstasy) Screen NEGATIVE U Benzodiazepines Scrn NEGATIVE Urine Cocaine Screen NEGATIVE U Cannabinoids Screen POSITIVE H Ur Drug Screen Comment Radiography Diagnostic Testing: Clinical Impression(s) from Imaging Studies Lumbar Spine MRI 12/17/21 19:51 IMPRESSION: Findings likely representing right L4-5 facet joint infection with surrounding osseous abnormal signal and enhancement likely representing osteomyelitis. Mild adjacent soft tissue enhancement without associated enhancement extending into the neural foramina. Right exiting L4 nerve root is normal in appearance with minimal nerve root impingement noted, similar to the contralateral side from degenerative changes at this level. No areas of nerve root impingement or central spinal canal stenosis. Left erector spinae muscle patchy area of high T2 signal and enhancement likely representing myositis which may be infectious or inflammatory in etiology. N.B. : The above Results were Read Back by Brayden Tavera DO to ALISA Tyson, and understanding confirmed on 12/17/2021 23:08:26 (ET). Electronically Signed: Brayden Tavera DO at 23:12 EDT , ADDENDUM: 12/17/21 8427 IMPRESSION: Findings likely representing right L4-5 facet joint infection with surrounding osseous abnormal signal and enhancement likely representing osteomyelitis. Mild adjacent soft tissue enhancement without associated enhancement extending into the neural foramina. Right exiting L4 nerve root is normal in appearance with minimal nerve root impingement noted, similar to the contralateral side from degenerative changes at this level. No areas of nerve root impingement or central spinal canal stenosis. Left erector spinae muscle patchy area of high T2 signal and enhancement likely representing myositis which may be infectious or inflammatory in etiology. N.B. : The above Results were Read Back by Brayden Tavera DO to ALISA Tyson, and understanding confirmed on 12/17/2021 23:08:26 (ET). Electronically Signed: Brayden OlveraDO alex at 23:12 EDT , <Dr. Sigifredo Ferrara, DO - Last Filed: 12/18/21 04:23> [facility] MDM Narrative Medical decision making narrative: Patient is evaluated for 1 week of difficulty walking. Eye exam patient has right foot drop. She also has some midline back tenderness in the lumbar spine and history of IV drug use. I am concerned she could possibly have an epidural abscess causing her symptoms. She is hemodynamically stable. Will obtain lab work and MRI. Patient's inflammatory markers including CRP, ESR and white blood cell count are normal. Urinalysis is negative. Patient's postvoid urine volume is 150 cc. MRI still pending. Patient signed out to oncoming physician, Dr. Ferrara, pending MRI results. If MRI negative I anticipate patient can follow-up outpatient. 0230: Patient signed out to ne MRI pending. Results concerns for an L4-L5 right facet osteomyelitis. There is no root involvement of L4. There is no abscess. There is a left erector spinae enhancement concerning for myositis. Blood cultures are in the lab. Normal white count normal ESR and CRP. Patient started on Zosyn and vancomycin. Attempted to try to contact neuro spine here however they are not on-call and no callbacks. Therefore discussed with the patient will need transfer to facility with neuro spine to follow. She would like to go to [facility]. I spoke with transfer line and physician Dr. Gunnar Britt update on patient's history and findings. She is excepted to his service. Lab Data Attestation: I reviewed the patient's lab results. Labs: Laboratory Results - last 24 hr 12/17/21 12/17/21 12/17/21 20:00 20:00 20:22 WBC 7.5 RBC 4.64 Hgb 14.5 Hct 42.5 MCV 91.6 MCH 31.3 MCHC 34.1 RDW Std Deviation 43.3 RDW Coeff of Smiley 13.0 Plt Count 236 MPV 9.0 Immature Gran % (Auto) 0.100 Neut % (Auto) 64.2 Lymph % (Auto) 29.4 Chicot % (Auto) 3.6 Eos % (Auto) 2.0 Baso % (Auto) 0.7 Absolute Neuts (auto) 4.8 Absolute Lymphs (auto) 2.21 Nucleated RBC % 0 ESR 6 Sodium 140 Potassium 3.4 L Chloride 109 H Carbon Dioxide 26.0 Anion Gap 5 BUN 11 Creatinine 0.91 Estim Creat Clear Calc 66.95 Est GFR (MDRD) Af Amer 89 Est GFR (MDRD) Non-Af 74 BUN/Creatinine Ratio 12.1 Glucose 79 Calcium 8.7 C-React Prot High Sens < 0.16 Urine Color Yellow Urine Clarity Clear Urine pH 6.5 Ur Specific Franklin 1.010 Urine Protein Negative Urine Glucose (UA) Normal Urine Ketones Negative Urine Occult Blood Negative Urine Nitrite Negative Urine Bilirubin Negative Urine Urobilinogen 1 H Ur Leukocyte Esterase 100 H Urine RBC 0 SEEN Urine WBC 0-5 SEEN Ur Squamous Epith Cells 0 SEEN Urine Bacteria 0 SEEN Urine Mucus 0 SEEN Urine Test Negative Urine Opiates Screen Urine Methadone Screen Ur Barbiturates Screen Ur Phencyclidine Scrn Ur Amphetamines Screen MDMA (Ecstasy) Screen U Benzodiazepines Scrn Urine Cocaine Screen U Cannabinoids Screen Ur Drug Screen Comment 12/17/21 20:22 WBC RBC Hgb Hct MCV MCH MCHC RDW Std Deviation RDW Coeff of Smiley Plt Count MPV Immature Gran % (Auto) Neut % (Auto) Lymph % (Auto) Chicot % (Auto) Eos % (Auto) Baso % (Auto) Absolute Neuts (auto) Absolute Lymphs (auto) Nucleated RBC % ESR Sodium Potassium Chloride Carbon Dioxide Anion Gap BUN Creatinine Estim Creat Clear Calc Est GFR (MDRD) Af Amer Est GFR (MDRD) Non-Af BUN/Creatinine Ratio Glucose Calcium C-React Prot High Sens Urine Color Urine Clarity Urine pH Ur Specific Franklin Urine Protein Urine Glucose (UA) Urine Ketones Urine Occult Blood Urine Nitrite Urine Bilirubin Urine Urobilinogen Ur Leukocyte Esterase Urine RBC Urine WBC Ur Squamous Epith Cells Urine Bacteria Urine Mucus Urine Test Urine Opiates Screen NEGATIVE Urine Methadone Screen NEGATIVE Ur Barbiturates Screen NEGATIVE Ur Phencyclidine Scrn NEGATIVE Ur Amphetamines Screen POSITIVE H MDMA (Ecstasy) Screen NEGATIVE U Benzodiazepines Scrn NEGATIVE Urine Cocaine Screen NEGATIVE U Cannabinoids Screen POSITIVE H Ur Drug Screen Comment Radiography Diagnostic Testing: Clinical Impression(s) from Imaging Studies Lumbar Spine MRI 12/17/21 19:51 IMPRESSION: Findings likely representing right L4-5 facet joint infection with surrounding osseous abnormal signal and enhancement likely representing osteomyelitis. Mild adjacent soft tissue enhancement without associated enhancement extending into the neural foramina. Right exiting L4 nerve root is normal in appearance with minimal nerve root impingement noted, similar to the contralateral side from degenerative changes at this level. No areas of nerve root impingement or central spinal canal stenosis. Left erector spinae muscle patchy area of high T2 signal and enhancement likely representing myositis which may be infectious or inflammatory in etiology. N.B. : The above Results were Read Back by Brayden Tavera DO to ALISA Tyson, and understanding confirmed on 12/17/2021 23:08:26 (ET). Electronically Signed: Brayden Tavera DO at 23:12 EDT , ADDENDUM: 12/17/21 2319 IMPRESSION: Findings likely representing right L4-5 facet joint infection with surrounding osseous abnormal signal and enhancement likely representing osteomyelitis. Mild adjacent soft tissue enhancement without associated enhancement extending into the neural foramina. Right exiting L4 nerve root is normal in appearance with minimal nerve root impingement noted, similar to the contralateral side from degenerative changes at this level. No areas of nerve root impingement or central spinal canal stenosis. Left erector spinae muscle patchy area of high T2 signal and enhancement likely representing myositis which may be infectious or inflammatory in etiology. N.B. : The above Results were Read Back by Brayden Tavera DO to Dr. Aaliyah Vela , ALISA, and understanding confirmed on 12/17/2021 23:08:26 (ET). Electronically Signed: Brayden Tavera DO at 23:12 EDT , <Dr. Sigifredo Ferrara DO - Last Filed: 12/18/21 04:23> Critical Care Time Critical Care Time: Yes Critical care time (excluding procedures): 30-74 minutes, Discussing w/Patient &/or Family/Legal Executive Assistant, Discussing w/Consultants, Arranging Admission or Transfer, Performing Direct Patient Care at Bedside and - (45 minutes) Discharge Plan Triage Chief Complaint: Lower Extremity Injury ED Provider: Sigifredo Ferrara Dx/Rx/DC Orders Clinical Impression: Foot drop, right, Acute osteomyelitis of lumbar spine, Myositis, IV drug user Prescriptions: No Action ferrous sulfate 325 mg (65 mg iron) tablet 325 mg PO DAILY diphenhydramine HCl [Benadryl] 25 mg capsule 25 mg PO TID PRN (Reason: Allergic Symptoms) aspirin 81 MG tablet,chewable 81 mg PO DAILY@0800 naproxen 250 MG tablet 250 - 500 mg PO Q8H PRN PRN (Reason: MILD PAIN) Qty: 30 1RF amitriptyline 25 mg tablet 25 mg QHS Label Comments: Take 1 tablet by mouth at bedtime hydroxyzine pamoate 25 mg capsule 25 mg Q6H PRN PRN (Reason: Anxiety) Label Comments: Take 1-2 capsule by mouth every six hours as needed for anxiety escitalopram oxalate 10 mg Tablet 10 mg PO DAILY Qty: 0 0RF Primary Care Provider: Care Physician,No Primary Referrals: Care Physician,No Primary [Primary Care Provider] - Activity Restrictions/Additional Instructions: L4-L5 right facet osteomyelitis. No abscess. Left lumbar erector spinae myositis Disposition Disposition: DC/Tx to Another Type of HCF Discharge Location: [facility] Discharge Date/Time: 12/18/21 06:28
[2021-12-17 23:28] VITALS: BP 142/91; PULSE 63; RESP 18; O2SAT 100
[2021-12-18 02:53] VITALS: BP 140/88; PULSE 68; RESP 18; O2SAT 98
[2021-12-18 03:22] VITALS: BP 140/88; PULSE 68; RESP 16; TEMP 37; O2SAT 98
--- NOTE | 2021-12-18 03:39 | NURSING ---
PHYSICIANS GAVE ETA 3HRS FROM 314. WILL TRY TO OUT SOURCE.
[2021-12-18 05:54] VITALS: BP 140/68; PULSE 70; RESP 19; O2SAT 99
== END 2021-12-18 06:28 | disposition other institution (70) ==
PROVIDERS: Emergency Medicine; Emergency Provider Emergency Medicine; Visit Provider Emergency Medicine
DX: M86.171 Other acute osteomyelitis, right ankle and foot (principal); M46.26 Osteomyelitis of vertebra, lumbar region; I10 Essential (primary) hypertension; M60.9 Myositis, unspecified; F17.200 Nicotine dependence, unspecified, uncomplicated; Z79.82 Long term (current) use of aspirin; Z79.899 Other long term (current) drug therapy
CPT/HCPCS: 72158; 80048; 80307; 81001; 81025; 85025; 85652; 86141; 87040; 87811; 96365; 96366; 96367; 99285; A9575; J7040; J7050; A4216

== ENCOUNTER 2022-04-11 14:50 | Inpatient (IN) | payer MEDICAID, SELFPAY ==
[2022-04-11 14:50] VITALS: BP 151/107; PULSE 109; RESP 16; TEMP 36.6; O2SAT 99; BMI 19.2
--- NOTE | 2022-04-11 15:58 | CT_ITS ---
STUDY: CT SOFT TISSUE NECK WITH CONTRAST REASON FOR EXAM: Female, 36 years old. abscess. SUBSTANCE ABUSE RADIATION DOSAGE (If Supplied By Facility): CTDIvol = ( 10.36 ) mGy, DLP = ( 287.41 ) mGycm TECHNIQUE: The patient was scanned in a multi-detector CT scanner. High resolution transaxial imaging was performed following intravenous administration of IV 75mL Isovue-370. Sagittal and coronal images were reconstructed. Individualized dose optimization techniques were used for this CT. COMPARISON: None. FINDINGS: Normal bilateral parotid glands. Normal bilateral attic blower spaces. Normal bilateral parapharyngeal spaces. Normal bilateral carotid spaces. Normal bilateral sublingual and submandibular glands and spaces. Normal visualized nasopharynx. Normal retropharyngeal space. Normal perivertebral space. Normal visualized bilateral faucial tonsils. The visualized tongue, tongue base and oropharynx are normal. The visualized cervical lymph nodes (levels I-) are within normal size limits, and maintain normal morphology. There is no demonstrated solid or cystic mass lesion. There is no abnormal contrast enhancement. There is enlargement of the musculature of the right side of the posterior aspect of the neck with edema of the surrounding subcutaneous fat and skin thickening suggestive of cellulitis. Within this area is a 1.2 cm peripherally enhancing fluid collection consistent with a small abscess, possibly within an enlarged lymph node. Normal epiglottis, bilateral vallecula and hypopharynx. The pre-epiglottic and paraglottic adipose spaces are normal. Normal visualized bilateral piriform sinuses, aryepiglottic folds, vocal cords, and arytenoid-cricoid articulations. Normal subglottic trachea. Normal bilateral lobes of the thyroid gland. Normal visualized pulmonary apices. Normal visualized paranasal sinuses. Normal visualized cervical spine. CT/Soft Tissue Neck WITH Contrast IMPRESSION: Suspect cellulitis and myositis of the right side of the posterior aspect of the neck with a small abscess possibly within the lymph node. Electronically Signed: Rocky Culp MD at 17:41 EST ,
[2022-04-11] MEDS: Acetaminophen 325 MG Tablet 650 MG PO (16:06)
[2022-04-11 16:23] LABS: Absolute Lymphocyte Count 1.77 X10^3/uL (0.83-4.51); Absolute Neutrophil Count 6.6 X10^3/uL (2.0-7.7); Basophil# 0.04 X10^3/uL; Basophil% 0.4 % (0-1); Eosinophil# 0.13 X10^3/uL; Eosinophils% 1.5 % (0-5); Hemoglobin 11.4 g/dL (12.0-15.0); Lymphocyte # 1.77 X10^3/ul (0.83-4.51); Lymphocyte % 19.9 % (19-41); Mean Corp Hgb Conc 34.5 g/dL (32-36); Mean Corpuscular Hgb 30.9 pg (27.0-32.0); Mean Corpuscular Volume 89.4 fL (81-99); Mean Platelet Vol. 8.1 fl (6.2-12.0); Monocyte# 0.31 X10^3/uL; Monocyte% 3.5 % (0-10); NRBC Flagged by Analyzer 0 % (0-5); Neutrophil # 6.61 X10^3/uL (2.7-7.7); Neutrophil % 74.4 % (47-70); Platelet Count 300 K/mm3 (150-450); RBC Distribution Width CV 12.3 % (11.6-14.6); RBC Distribution Width SD 39.8 fl (35.1-43.9); Red Blood Count 3.69 M/mm3 (4.2-5.4); White Blood Count 8.9 K/mm3 (4.4-11.0)
[2022-04-11 16:34] LABS: Anion Gap 5 (5-15); BUN 6 mg/dL (7-18); BUN/Creat Ratio 8.8 RATIO (10-20); Chloride 109 mmol/L (98-107); Creatinine, Serum 0.68 mg/dL (0.55-1.02); EST Glomerular Filtration Rate 103 mL/min (>60); Est Glom Filt Rate - Afr Amer 125 mL/min (>60); Estimated Creatinine Clearance 85.17 ml/min; Glucose 104 mg/dL (74-106); Potassium 3.1 mmol/L (3.5-5.1); Sodium Level 142 mmol/L (136-145)
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
[2022-04-11] MEDS: Vancomycin IV 1,000 MG/200 ML BAG 200 MG IV (19:00)
[2022-04-11 19:02] VITALS: BP 135/94; PULSE 80; RESP 16; TEMP 36.5; O2SAT 100
[2022-04-11 19:29] VITALS: BP 135/94; PULSE 80; RESP 16; TEMP 37.1; O2SAT 100
[2022-04-11 19:37] LABS: Amphetamine Urine VISTA POSITIVE (<1000 ng/mL); Barbiturate Urine VISTA NEGATIVE (< 200 ng/mL); Benzodiazepine Urine VISTA NEGATIVE (< 200 ng/mL); Cocaine Urine VISTA NEGATIVE (< 300 ng/mL); Ecstacy Urine VISTA NEGATIVE (< 500 ng/mL); Methadone Urine VISTA NEGATIVE (< 300 ng/mL); PCP Urine VISTA NEGATIVE (< 25 ng/mL); THC Urine VISTA POSITIVE (< 50 ng/mL); Vista UDS pH Range 7
[2022-04-11 19:45] LABS: Magnesium 2.3 mg/dL (1.6-2.6)
[2022-04-11 19:59] VITALS: BMI 21.1
[2022-04-11 20:01] VITALS: BP 165/99; PULSE 57; RESP 16; TEMP 37.4; O2SAT 99
[2022-04-11] MEDS: 0.9% Normal Saline 1,000 ML 125 ML IV (20:15)
[2022-04-11 20:30] LABS: HIV - WCH Non-Reactive (Nonreactive)
--- NOTE | 2022-04-11 21:12 | PCM.RX.CS ---
Consult Pharmacy has been consulted to manage selected antiobiotic: Vancomycin Type of Consult: New start Suspected Infection: Skin/Soft tissue Labs: Sodium 142 mmol/L (136-145) 04/11/22 15:20 Potassium 3.1 mmol/L (3.5-5.1) L 04/11/22 15:20 Chloride 109 mmol/L (98-107) H 04/11/22 15:20 Carbon Dioxide 28.0 mmol/L (21.0-32.0) 04/11/22 15:20 Anion Gap 5 (5-15) 04/11/22 15:20 BUN 6 mg/dL (7-18) L 04/11/22 15:20 Creatinine 0.68 mg/dL (0.55-1.02) 04/11/22 15:20 Est GFR (MDRD) Af Amer 125 mL/min (>60) 04/11/22 15:20 Est GFR (MDRD) Non-Af 103 mL/min (>60) 04/11/22 15:20 BUN/Creatinine Ratio 8.8 RATIO (10-20) L 04/11/22 15:20 Glucose 104 mg/dL (74-106) 04/11/22 15:20 Goal Trough: 15-20 mcg/mL Pharmacy Plan for Drug Dosing: NEW START IV VANCOMYCIN Consulting Physician: Dr. Echevarria Indication: Cellulitis Goal Trough: 15-20 SrCr: 0.68 CrCl: 85 mls/min Comments: pt received a 1000mg x1 dose of Vancomycin in the ER on 04/11/22 at 1900 Vancomycin Dose: based on pts weight and renal function, recommend an initial dose of 1000mg q12h starting 04/12/22 at 0700 Pending Level: 04/13/22 at 0630 Pharmacy Service will continue to monitor and adjust dosing as required. Follow-Up Labs: Trough Vancomycin - 04/13/22 at 0630
[2022-04-11 21:19] LABS: Hepatitis B Surface Antibody Reactive; Hepatitis B Surface Antigen Non-Reactive (Nonreactive)
[2022-04-11 21:23] LABS: Hepatitis C Antibody Reactive (Nonreactive)
[2022-04-11] MEDS: Gabapentin 300 MG Capsule PO (21:25)
[2022-04-11] MEDS: Ketorolac 15 MG/ML Vial IV (21:25)
[2022-04-11] MEDS: Gabapentin 100 MG Capsule PO (21:25)
[2022-04-11] MEDS: Potassium Chloride Oral Tablet 20 MEQ 40 MEQ PO (21:29)
[2022-04-12 02:07] VITALS: BP 141/98; PULSE 75; RESP 16; TEMP 36.3; O2SAT 99
[2022-04-12] MEDS: 0.9% Normal Saline 1,000 ML 125 ML IV (03:56)
[2022-04-12] MEDS: Ketorolac 15 MG/ML Vial IV (05:33)
[2022-04-12] MEDS: 0.9% Saline Lock 10 ML Syringe IV (05:47)
[2022-04-12 07:36] VITALS: O2SAT 95
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
[2022-04-12] MEDS: hydroCHLOROthiazide 12.5mg 12.5 MG PO (07:47)
[2022-04-12] MEDS: Vancomycin IV 1,000 MG/200 ML BAG 200 MG IV (07:47)
[2022-04-12] MEDS: Escitalopram Oxalate 10 MG Tablet PO (07:48)
[2022-04-12] MEDS: Aspirin 81 MG TAB.CHEW PO (07:48)
[2022-04-12 08:00] VITALS: BP 150/105; PULSE 69; RESP 18; TEMP 36.8; O2SAT 100
[2022-04-12 08:27] LABS: Absolute Lymphocyte Count 1.65 X10^3/uL (0.83-4.51); Absolute Neutrophil Count 4.2 X10^3/uL (2.0-7.7); Basophil# 0.06 X10^3/uL; Basophil% 0.9 % (0-1); Eosinophil# 0.15 X10^3/uL; Eosinophils% 2.3 % (0-5); Hematocrit 32.9 % (37-47); Hemoglobin 11.1 g/dL (12.0-15.0); Lymphocyte # 1.65 X10^3/ul (0.83-4.51); Lymphocyte % 25.7 % (19-41); Mean Corp Hgb Conc 33.7 g/dL (32-36); Mean Corpuscular Hgb 30.7 pg (27.0-32.0); Mean Corpuscular Volume 91.1 fL (81-99); Mean Platelet Vol. 9.7 fl (6.2-12.0); Monocyte# 0.32 X10^3/uL; NRBC Flagged by Analyzer 0 % (0-5); Neutrophil # 4.22 X10^3/uL (2.7-7.7); Neutrophil % 65.8 % (47-70); POSITIVE COUNT YES; Platelet Count 195 K/mm3 (150-450); RBC Distribution Width CV 12.2 % (11.6-14.6); RBC Distribution Width SD 40.3 fl (35.1-43.9); Red Blood Count 3.61 M/mm3 (4.2-5.4); White Blood Count 6.4 K/mm3 (4.4-11.0)
[2022-04-12 08:47] LABS: ALB/GLOB Ratio 0.5 RATIO (0.9-2.4); AST(SGOT) 31 U/L (15-37); Alanine Aminotransfer ALT/SGPT 31 U/L (13-56); Albumin, Serum 2.3 g/dL (3.2-5.0); Alkaline Phosphatase 89 U/L (45-117); Anion Gap 4 (5-15); BUN 4 mg/dL (7-18); BUN/Creat Ratio 5.5 RATIO (10-20); Calcium,Total 8.6 mg/dL (8.5-10.1); Chloride 111 mmol/L (98-107); Creatinine, Serum 0.73 mg/dL (0.55-1.02); EST Glomerular Filtration Rate 95 mL/min (>60); Est Glom Filt Rate - Afr Amer 115 mL/min (>60); Estimated Creatinine Clearance 83.45 ml/min; Globulin 4.9 g/dL (2.2-4.2); Glucose 124 mg/dL (74-106); Potassium 3.6 mmol/L (3.5-5.1); Protein, Total 7.2 g/dL (6.4-8.2); Sodium Level 137 mmol/L (136-145)
[2022-04-12 08:58] LABS: Phosphorus 2.4 mg/dL (2.5-4.9)
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
[2022-04-12] MEDS: Potassium Chloride Oral Tablet 20 MEQ 40 MEQ PO (10:56)
[2022-04-12] MEDS: Gabapentin 100 MG Capsule PO (10:56)
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
--- NOTE | 2022-04-12 12:53 | NURSING ---
Male visitor out to desk and stated patient wanted to talk to someone in charge. This nurse into room and patient stated that she wanted to sign herself out. She stated I need to leave. I need to sign out. Text sent to notify Dr. Howell.
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
== END 2022-04-12 12:56 | disposition left against medical advice (07) | DRG 383 ==
LOC: ED 19:31 → MS3 19:32
PROVIDERS: Admitting Provider Family Medicine; Emergency Provider Emergency Medicine; Visit Provider Internal Medicine
DX: L03.221 Cellulitis of neck (principal); D50.9 Iron deficiency anemia, unspecified; F15.90 Other stimulant use, unspecified, uncomplicated; E87.6 Hypokalemia; F17.210 Nicotine dependence, cigarettes, uncomplicated; M60.88 Other myositis, other site; I10 Essential (primary) hypertension; L40.9 Psoriasis, unspecified; K21.9 Gastro-esophageal reflux disease without esophagitis; F41.9 Anxiety disorder, unspecified; L02.11 Cutaneous abscess of neck; G89.4 Chronic pain syndrome; Z79.82 Long term (current) use of aspirin; Z79.899 Other long term (current) drug therapy; F32.A Depression, unspecified
CPT/HCPCS: 36415; 70491; 80048; 80053; 80307; 83735; 84100; 85025; 86703; 86706; 86803; 87040; 87340; 99251; 99284; J7030; J7050; Q9967; A4216; G0463

== ENCOUNTER 2022-06-03 22:37 | Emergency (ER) | payer MEDICAID, SELFPAY ==
[2022-06-03 22:38] VITALS: BP 171/103; PULSE 104; RESP 16; TEMP 36.6; O2SAT 98; BMI 20.1
--- NOTE | 2022-06-03 23:30 | EX.ED.DYSGE1 ---
HPI History of Present Illness Chief Complaint: Abscess Informant: patient Narrative Narrative: Presents for evaluation abscess left axillary area progress over past week. No drainage. Reports she has fevers. She is recent one on the right side that was self-limiting after draining. She reports previous IV drug abuse she is admitted in March for neck cellulitis abscess she left AMA. Should not go home on antibiotics states though symptoms however resolved. She stopped using IV drugs reportedly since then. History of psoriasis. Previous osteomyelitis of her lumbar spine. Prior similar symptoms: Yes [facility] Medical History Anemia affecting Cellulitis Drug abuse Family history of cleft lip and palate Hepatitis C antibody positive in blood History of abnormal cervical Pap smear History of heroin abuse History of pre-eclampsia Hypertension Substance abuse Home Medications aspirin 81 mg chewable tablet 81 mg PO DAILY HEART HEALTH 04/06/20 [History Last Taken 2 Days Ago ~04/09/22] diphenhydramine HCl 25 mg capsule (Benadryl) 25 mg PO TID PRN Allergic Symptoms 05/21/20 [History Last Taken 09/18/21] naproxen 250 mg tablet 250 - 500 mg PO Q8H PRN PRN MILD PAIN #30 tabs 06/13/20 [Rx Last Taken 09/18/21] hydroxyzine pamoate 25 mg capsule 25 mg PO UD PRN Anxiety 09/19/21 [History Last Taken 2 Days Ago ~04/09/22] escitalopram oxalate 10 mg tablet 10 mg PO DAILY DEPRESSION 04/11/22 [History Last Taken 2 Days Ago ~04/09/22] gabapentin 100 mg capsule 100 mg PO BID NERVE PAIN 04/11/22 [History Last Taken 2 Days Ago ~04/09/22] gabapentin 300 mg capsule 300 mg PO QHS NERVE PAIN 04/11/22 [History Last Taken 2 Days Ago ~04/09/22] meloxicam 15 mg tablet 15 mg PO DAILY PRN Inflammation 04/11/22 [History Last Taken 2 Days Ago ~04/09/22] nicotine 21 mg/24 hr daily transdermal patch 1 patch topical DAILY 04/11/22 [History Last Taken 2 Days Ago ~04/09/22] pantoprazole 20 mg tablet,delayed release 20 mg PO DAILY PRN Acid Reflux 04/11/22 [History Last Taken 2 Days Ago ~04/09/22] cephalexin 500 mg capsule 500 mg PO Q6 #40 caps 06/03/22 [Rx Last Taken Unknown] Allergy/AdvReac Type Severity Reaction Status Date / Time No Known Allergies Allergy Verified 06/03/22 22:41 Family History (Updated 04/11/22 @ 18:[address] Kierra Echevarria MD) Father Heart disease Mother Anxiety and depression Surgical History (Updated 04/11/22 @ 18:[address] Kierra Echevarria MD) No history of previous surgery Social History (Updated 04/11/22 @ 18:[address] Kierra Echevarria MD) household members: other details: Lives with a friend. 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 [employer] [facility] ED Constitutional Constitutional ED: Reports fever(s); Denies chills or sweats Eyes Eyes: Denies change in vision ENT ENT ED: Denies dysphagia or sore throat Cardiovascular Cardiovascular: Denies chest pain, leg edema, palpitations or racing heartbeat Respiratory/Chest Respiratory/Chest: Denies cough, dyspnea or dyspnea on exertion Gastrointestinal Gastrointestinal: Denies abdominal pain, diarrhea, nausea or vomiting Genitourinary Genitourinary ED: Denies dysuria, hematuria or urinary frequency Musculoskeletal Musculoskeletal: Denies back pain, extremity pain or neck pain Integumentary Reports abscess; Denies rash or wounds Neurologic Neurologic: Denies headache(s), paresthesias or weakness EXAM Physical Exam Const Vital Signs: 06/03/22 22:38 Temperature 98 F Temperature Source Temporal Pulse Rate 104 H Respiratory Rate 16 Blood Pressure 171/103 H Blood Pressure Mean 125 Pulse Ox 98 Oxygen Delivery Method Room Air Positive well nourished and well developed General Appearance ED: well developed and NAD HEENT Reports moist mucous membranes normocephalic and atraumatic Eyes PERRL, EOMs intact bilaterally and conjunctivae normal General Eye ED: Yes normal appearance of both eyes Neck no lymphadenopathy and supple Neck Narrative: Full range of motion of the neck without pain. No erythema. General: Negative for tenderness Chest Wall Chest: Negative for tenderness Resp normal respiratory effort and normal air movement Effort and Inspection: symmetric chest movement; Negative for respiratory distress Cardio regular rate, regular rhythm and no murmurs Peripheral Pulses: pulses 2+ throughout GI normal to inspection, nondistended, normoactive bowel sounds and non-tender Palpation: Negative for guarding or rebound tenderness present Back/Spine no CVA tenderness and no thoracic nor lumbar tenderness Extremity normal to inspection General Extremety ED: Negative for edema or tenderness General Extremity: Negative for edema Neuro oriented x3 and no sensory deficits noted Sensorium / Orientation: awake and alert Skin Skin Narrative: Left axillary: Proximal upper arm noted 1.5 cm fluctuance, no surrounding erythema no drainage minimal tenderness. MDM MDM MDM Narrative Medical decision making narrative: Patient isolated abscess left axilla. Afebrile in the ED. Reports no current IV drug use. Differential skin abscess. This was incised and drained with her consent. Minimal output. She started on Keflex. She has no current PCP. She is given follow-up as an outpatient. She has no current neck pain no erythema in the area with her myositis cellulitis of the neck with small abscess from review of records. Patient is stable for discharge. Procedure note: Verbal consent. Incision and drainage. Normal sterile conditions. Alcohol prep of the skin, 2 cc 1% lidocaine used for local analgesia. Betadine prep of the skin 11 blade for cruciate incision minimal exudates. Loculations broken with hemostats. Flushed with normal saline. Patient Toller procedure well. Discharge Plan Triage Chief Complaint: Abscess ED Provider: Sigifredo Ferrara Dx/Rx/DC Orders Clinical Impression: Abscess of axilla, left, Encounter for incision and drainage procedure, History of intravenous drug use in remission Instructions: ED Abscess Incision And Drainage Prescriptions: New cephalexin [cephalexin] 500 mg capsule 500 mg PO Q6 Qty: 40 0RF No Action diphenhydramine HCl [Benadryl] 25 mg capsule 25 mg PO TID PRN (Reason: Allergic Symptoms) aspirin 81 MG tablet,chewable 81 mg PO DAILY naproxen 250 MG tablet 250 - 500 mg PO Q8H PRN PRN (Reason: MILD PAIN) Qty: 30 1RF hydroxyzine pamoate 25 mg capsule 25 mg PO UD PRN (Reason: Anxiety) meloxicam 15 mg tablet 15 mg PO DAILY PRN (Reason: Inflammation) pantoprazole 20 mg tablet,delayed release (DR/EC) 20 mg PO DAILY PRN (Reason: Acid Reflux) nicotine 21 mg/24 hr patch 24 hour 1 patch topical DAILY gabapentin 300 mg capsule 300 mg PO QHS gabapentin 100 mg capsule 100 mg PO BID escitalopram oxalate 10 mg tablet 10 mg PO DAILY Primary Care Provider: Care Physician,No Primary Referrals: Sheri Rudolph MD [Med Staff - Stringed Instrument Repairer] - 3-5 Days Care Physician,No Primary [Primary Care Provider] - Activity Restrictions/Additional Instructions: Incise and drainage minimal drainage. Use antibiotic as prescribed. Continue to refrain from IV drug use. Disposition Disposition: Home, Self Care
[2022-06-03] MEDS: Lidocaine 1% (30 ml sdv) 30 ML Vial INFILT (23:57)
[2022-06-04 00:06] VITALS: BP 165/99; PULSE 99; RESP 16; TEMP 37.2; O2SAT 98
[2022-06-04] MEDS: Cephalexin 250 MG Capsule 500 MG PO (00:06)
== END 2022-06-04 00:18 | disposition home or self-care (01) ==
PROVIDERS: Emergency Provider Emergency Medicine; Visit Provider Emergency Medicine
DX: L02.412 Cutaneous abscess of left axilla (principal); F19.11 Other psychoactive substance abuse, in remission; L03.221 Cellulitis of neck; F17.210 Nicotine dependence, cigarettes, uncomplicated
CPT/HCPCS: 10060; 99284

== ENCOUNTER 2022-06-21 09:53 | Inpatient (IN) | payer MEDICAID, SELFPAY ==
[2022-06-21 09:54] VITALS: BP 162/102; PULSE 101; RESP 16; TEMP 36.9; O2SAT 100; BMI 23.1
--- NOTE | 2022-06-21 10:24 | ED.VIS.BACK ---
HPI History of Present Illness Chief Complaint: Back Informant: patient Onset/Context/Timing Onset: Weeks Context: Gradual Onset Timing: Continuous Quality: Sharp Location: Lumbar Worsened by: improves with Nothing Relieved by: Medications (Ibuprofen) and - (Heat, lidocaine cream) Associated Symptoms Associated Symptoms: Numbness; Negative for Tingling, Radiation to Right Leg, Radiation to Left Leg, Abdominal Pain, Dysuria, Unable to Ambulate, Unable to Transfer, Urinary Retention, Urinary Incontinence, Constipation or Fecal Incontinence Narrative Narrative: Patient presents with back pain that has been getting worse over the past several days. Patient denies any trauma or injury. Patient states her pain is sharp. Patient states is over the lower lumbar area. Patient states she has a history of osteomyelitis in her lumbar area. Patient states she is not on any antibiotics currently. Patient states she started using fentanyl again recently. Patient states that she has been using lidocaine cream, heat, and ibuprofen with some relief. Patient states nothing makes her pain worse. Patient admits to some numbness in her thighs but denies any weakness. Patient denies any radiation of the pain down her legs. Patient admits to some urinary hesitancy. Patient denies any urinary or stool incontinence. Patient is unsure if she is . Prior similar symptoms: With Prior Back Pain [facility] Medical History Anemia affecting Cellulitis Drug abuse Family history of cleft lip and palate Hepatitis C antibody positive in blood History of abnormal cervical Pap smear History of heroin abuse History of pre-eclampsia Hypertension Substance abuse Home Medications NK 06/21/22 [History Last Taken Unknown] Allergy/AdvReac Type Severity Reaction Status Date / Time coconut Allergy Rash Verified 06/21/22 09:54 Family History (Updated 04/11/22 @ 18:[address] Kierra Echevarria MD) Father Heart disease Mother Anxiety and depression Surgical History No history of previous surgery Social History household members: other details: Lives with a friend. 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 ROS ROS ED Constitutional Constitutional ED: Reports chills and subjective; Denies fever(s) Eyes Eyes: Reports blurry vision; Denies change in vision ENT ENT ED: Denies rhinorrhea or sore throat Cardiovascular Cardiovascular: Denies chest pain or palpitations Respiratory/Chest Respiratory/Chest: Denies cough or dyspnea Gastrointestinal Gastrointestinal: Reports nausea; Denies vomiting Genitourinary Genitourinary ED: Denies dysuria or hematuria Musculoskeletal Musculoskeletal: Reports back pain; Denies neck pain Integumentary Reports abscess; Denies rash Neurologic Neurologic: Reports headache(s) and paresthesias RLE and LLE; Denies weakness Allergic/Immunologic Allergic/Immunologic ED: Reports urticaria; Denies mouth swelling or tongue swelling EXAM Physical Exam Const Vital Signs: 06/21/22 09:54 Temperature 98.5 F Temperature Source Temporal Pulse Rate 101 H Respiratory Rate 16 Blood Pressure 162/102 H Blood Pressure Mean 122 Pulse Ox 100 Oxygen Delivery Method Room Air Positive well nourished and well developed General Appearance ED: well developed and NAD HEENT Reports moist mucous membranes Neck supple and no JVD Resp normal respiratory effort and clear to auscultation bilaterally Cardio regular rate, regular rhythm and no murmurs GI normal to inspection, nondistended, normoactive bowel sounds and non-tender Palpation: soft Back/Spine Back/Spine Narrative: There is tenderness over the lower lumbar spine and paraspinal muscles. There is no erythema or warmth. There is no fluctuance. There is no evidence of any abscess. There is good range of motion of the lumbar spine. Extremity normal to inspection General Extremety ED: Negative for edema or tenderness General Extremity: Negative for edema Neuro oriented x3, CN's II-XII intact bilaterally and no sensory deficits noted Sensorium / Orientation: alert Motor Exam: strength 5/5 throughout Psych mental status grossly normal Skin no rashes or lesions noted MDM MDM MDM Narrative Medical decision making narrative: Differential diagnosis includes lumbosacral strain, osteomyelitis, epidural infection, urinary tract infection, , ureteral calculus, COVID infection, and fluid infection. CBC will be obtained to assess for leukocytosis and anemia. Basic metabolic profile will be obtained to assess for renal function and electrolyte abnormality. Urine tox urine will be obtained to assess for substance abuse. Blood alcohol level will be obtained to assess for alcohol intoxication. Serum hCG will be obtained to assess for and ectopic . Urinalysis will be obtained to assess for urinary tract infection and hematuria. Sed rate and CRP will be obtained to assess for inflammatory markers. MRI of the lumbar spine will be obtained to assess for osteomyelitis. Lab Data Attestation: I reviewed the patient's lab results. Lab results narrative: CBC was reviewed and was within normal limits. Basic metabolic profile was reviewed and was essentially within normal limits. C-reactive protein was reviewed and was normal. Sed rate was reviewed and was normal. Serum alcohol level was reviewed and was negative. Serum hCG was reviewed and was negative. Urinalysis was reviewed and was within normal limits. Urine tox urine was reviewed and was positive for amphetamines, MDMA, and cannabinoids. Labs: Laboratory Results - last 24 hr 06/21/22 06/21/22 06/21/22 10:20 10:20 10:20 WBC 7.3 RBC 4.31 Hgb 13.0 Hct 37.9 MCV 87.9 MCH 30.2 MCHC 34.3 RDW Std Deviation 40.8 RDW Coeff of Smiley 12.5 Plt Count 234 MPV 8.6 Immature Gran % (Auto) 0.100 Neut % (Auto) 42.4 L Lymph % (Auto) 45.4 H Sandoval % (Auto) 7.6 Eos % (Auto) 3.7 Baso % (Auto) 0.8 Absolute Neuts (auto) 3.1 Absolute Lymphs (auto) 3.33 Nucleated RBC % 0 ESR 8 Sodium 142 Potassium 3.6 Chloride 108 H Carbon Dioxide 30.0 Anion Gap 4 L BUN 11 Creatinine 1.00 Estim Creat Clear Calc 60.92 Est GFR (MDRD) Af Amer 80 Est GFR (MDRD) Non-Af 67 BUN/Creatinine Ratio 11.1 Glucose 106 Calcium 8.7 C-React Prot Ext Range < 2.90 Serum , Qual Urine Color Urine Clarity Urine pH Ur Specific [place] Urine Protein Urine Glucose (UA) Urine Ketones Urine Occult Blood Urine Nitrite Urine Bilirubin Urine Urobilinogen Ur Leukocyte Esterase Urine RBC Urine WBC Ur Squamous Epith Cells Urine Bacteria Urine Mucus Urine Opiates Screen Urine Methadone Screen Ur Barbiturates Screen Ur Phencyclidine Scrn Ur Amphetamines Screen MDMA (Ecstasy) Screen U Benzodiazepines Scrn Urine Cocaine Screen U Cannabinoids Screen Ur Drug Screen Comment Ethyl Alcohol < 3.0 06/21/22 06/21/22 06/21/22 10:20 10:20 10:20 WBC RBC Hgb Hct MCV MCH MCHC RDW Std Deviation RDW Coeff of Smiley Plt Count MPV Immature Gran % (Auto) Neut % (Auto) Lymph % (Auto) Sandoval % (Auto) Eos % (Auto) Baso % (Auto) Absolute Neuts (auto) Absolute Lymphs (auto) Nucleated RBC % ESR Sodium Potassium Chloride Carbon Dioxide Anion Gap BUN Creatinine Estim Creat Clear Calc Est GFR (MDRD) Af Amer Est GFR (MDRD) Non-Af BUN/Creatinine Ratio Glucose Calcium C-React Prot Ext Range Serum , Qual NEGATIVE Urine Color Yellow Urine Clarity Clear Urine pH 7.0 Ur Specific [place] 1.010 Urine Protein Negative Urine Glucose (UA) Normal Urine Ketones Negative Urine Occult Blood Negative Urine Nitrite Negative Urine Bilirubin Negative Urine Urobilinogen Normal Ur Leukocyte Esterase 100 H Urine RBC 0 SEEN Urine WBC 0-5 SEEN Ur Squamous Epith Cells 0-5 SEEN Urine Bacteria 0 SEEN Urine Mucus 0 SEEN Urine Opiates Screen NEGATIVE Urine Methadone Screen NEGATIVE Ur Barbiturates Screen NEGATIVE Ur Phencyclidine Scrn NEGATIVE Ur Amphetamines Screen POSITIVE H MDMA (Ecstasy) Screen POSITIVE H U Benzodiazepines Scrn NEGATIVE Urine Cocaine Screen NEGATIVE U Cannabinoids Screen POSITIVE H Ur Drug Screen Comment Ethyl Alcohol Radiography Diagnostic Testing: Clinical Impression(s) from Imaging Studies Lumbar Spine MRI 06/21/22 10:32 IMPRESSION: undefined MRI of the lumbar spine was reviewed by myself independently. There is no evidence of cauda equina syndrome. There is some inflammatory changes of L4. Radiologist also interpreted the MRI and shows inflammatory changes of the right L4 subarticular facet and right L5 pedicle extending to the right L5 superior facet. This is unchanged compared to previous MRI from 12/17/2021. Treatment and Re-Evaluation Narrative: Patient was advised of her findings. Patient is sleeping on reevaluation. On reevaluation, patient requested inpatient detox from fentanyl. I will discuss the case with the hospitalist for possible admission for detox. Case was discussed with Dr. Echevarria, hospitalist, she will admit the patient to her service. Patient understood and was agreeable with the plan. All questions were answered. Discharge Plan Dx/Rx/DC Orders Clinical Impression: Opiate dependence, Chronic back pain, Substance abuse Disposition Disposition: Acute Care Hospital [facility]
--- NOTE | 2022-06-21 10:32 | MRI_ITS ---
STUDY: MRI LUMBAR SPINE WITH AND WITHOUT CONTRAST REASON FOR EXAM: Female, 36 years old. Osteomyelitis TECHNIQUE: Standardized fat and water weighted pulse sequences were obtained in the sagittal and axial planes. 10 mL of IV Clariscan was administered for the contrast portion of the examination. COMPARISON: MRI lumbar spine with and without contrast 12/17/2021. FINDINGS: T11-T12: (Sagittal only). Normal endplates. Normal disc height, hydration and morphology. Normal central canal and bilateral intervertebral neural foramina. T12-L1: Normal endplates. Normal disc height, hydration and morphology. Normal bilateral facet joints. Normal central canal and bilateral lateral recesses. Normal bilateral intervertebral neural foramina. Normal lumbar lordosis. There is no substantial scoliosis. Normal conus medullaris that terminates at the lower T12 vertebral body level. L1-2: Normal endplates. Normal disc height, hydration and morphology. Normal bilateral facet joints. Normal central canal and bilateral lateral recesses. Normal bilateral intervertebral neural foramina. L2-3: Normal endplates. Normal disc height, hydration and morphology. Normal bilateral facet joints. Normal central canal and bilateral lateral recesses. Normal bilateral intervertebral neural foramina. L3-4: Normal endplates. Normal disc height, hydration and morphology. Abnormal T1 hypointensity and T2 hyperintensity involving the right L4 pedicle extending to the right L4 superior articular facet. This enhancement IV contrast. There is also minimal edema around the right L3-L4 facet joint. Mild left L3-4 degenerative facet arthropathy is unchanged.. Normal central canal and bilateral lateral recesses. Normal bilateral intervertebral neural foramina. L4-5: Normal endplates. Normal disc height, hydration and morphology. Abnormal T1 hypointensity involving the right L4 pedicle extending to the right L4 superior articular facet, right L5 pedicle extending to the right L5 superior to color facet. These enhance with IV contrast. Additionally, there is no enhancing edema around the right L4-L5 facet joint more than the right L3-L4 facet joint. Normal central canal and bilateral lateral recesses. Mild contrast enhancement of the perineural fat in the right intervertebral neural foramen. Normal left intervertebral neural foramen without contrast enhancement of the perineural fat. L5-S1: Normal endplates. Normal disc height, hydration and morphology. Abnormal T1 hypointensity and T2 hyperintensity of the right L5 pedicle extending to the right L5 superior articular facet. This enhances with IV contrast. No significant facet arthropathy. Normal central canal and bilateral lateral recesses. Normal bilateral intervertebral neural foramina.. Normal visualized sacral ala. Normal visualized paraspinous soft tissue structures. No abnormal enhancing lesions intradurally. There is abnormal contrast enhancement of the right L4 pedicle, right L4 superior tic facet, right L5 pedicle, right L5 superior tic facet and abnormal contrast enhancement around the right L4-L5 facet joint more than around the right L3-L4 facet joint. There is also abnormal contrast enhancement of the perineural fat in the right L4-L5 intervertebral neural foramen. OPINION: 1. Abnormal MRI scan of the lumbar spine showing persistent T1 hypointensity and T2 hyperintensity of the right L4 pedicle extending towards the right L4 subarticular facet, right L5 pedicle extending towards the right L5 superior articular facet. These enhanced with IV contrast including the perineural fat in the right L4-L5 intervertebral neural foramen. Additionally, there is abnormal contrast enhancement around the right L4-L5 facet joint more than the right L3-L4 facet joint. These are chronic findings and may all be related to at least degenerative inflammatory arthropathy but without significant change since 12/17/2021. Exact etiology is unknown. Fluoroscopy guided biopsy of the right L5 pedicle or the right L4 pedicle may be helpful for further evaluation. Metastatic bone neoplasm is doubtful since these have not changed when compared to 12/17/2021. Correlation with radionuclide whole body bone scan may be helpful if there are additional sites elsewhere in the body. 2. No MRI evidence of lumbar disc extrusion or disc protrusion. Electronically Signed: Tom Singleton MD at 13:36 EST , MRI/Spine Lumbar W/WO Contrast IMPRESSION: undefined
[2022-06-21 10:36] LABS: Bacteria 0 SEEN /hpf (None Seen); Mucous, Urine 0 SEEN /hpf (<or=2+); Red Blood Cells-Urine 0 SEEN /hpf (0-5)
[2022-06-21 10:46] LABS: Color, Urine Yellow (Yellow); Glucose, Dipstick Normal (Normal); Ketone-Dipstick Negative (Negative); Leukocyte Esterase-Dipstick 100 /ul (Negative); Nitrite-Dipstick Negative (Negative); Occult Blood-Urine Negative /ul (Negative); Protein-Dipstick Negative (Negative); Urine Bilirubin Dipstick Negative (Negative); Urine Clarity Clear (Clear); Urine Urobilinogen Normal (Normal)
[2022-06-21 10:47] LABS: Absolute Lymphocyte Count 3.33 X10^3/uL (0.83-4.51); Absolute Neutrophil Count 3.1 X10^3/uL (2.0-7.7); Basophil# 0.06 X10^3/uL; Basophil% 0.8 % (0-1); Eosinophil# 0.27 X10^3/uL; Eosinophils% 3.7 % (0-5); Hematocrit 37.9 % (37-47); Lymphocyte # 3.33 X10^3/ul (0.83-4.51); Lymphocyte % 45.4 % (19-41); Mean Corp Hgb Conc 34.3 g/dL (32-36); Mean Corpuscular Hgb 30.2 pg (27.0-32.0); Mean Corpuscular Volume 87.9 fL (81-99); Mean Platelet Vol. 8.6 fl (6.2-12.0); Monocyte# 0.56 X10^3/uL; Monocyte% 7.6 % (0-10); NRBC Flagged by Analyzer 0 % (0-5); Neutrophil # 3.11 X10^3/uL (2.7-7.7); Neutrophil % 42.4 % (47-70); Platelet Count 234 K/mm3 (150-450); RBC Distribution Width CV 12.5 % (11.6-14.6); RBC Distribution Width SD 40.8 fl (35.1-43.9); Red Blood Count 4.31 M/mm3 (4.2-5.4); White Blood Count 7.3 K/mm3 (4.4-11.0)
[2022-06-21 10:49] LABS: Squamous Epithelial Cells - UA 0-5 SEEN /hpf (5-10); White Blood Cells 0-5 SEEN /hpf (0-5)
[2022-06-21 10:54] LABS: Erythrocyte Sedimentation Rate 8 mm/hr (0-30)
[2022-06-21 11:02] LABS: Amphetamine Urine VISTA POSITIVE (<1000 ng/mL); Anion Gap 4 (5-15); BUN 11 mg/dL (7-18); BUN/Creat Ratio 11.1 RATIO (10-20); Barbiturate Urine VISTA NEGATIVE (< 200 ng/mL); Benzodiazepine Urine VISTA NEGATIVE (< 200 ng/mL); CRP < 2.90 mg/L (0.0-3.0); Calcium,Total 8.7 mg/dL (8.5-10.1); Chloride 108 mmol/L (98-107); Cocaine Urine VISTA NEGATIVE (< 300 ng/mL); EST Glomerular Filtration Rate 67 mL/min (>60); Ecstacy Urine VISTA POSITIVE (< 500 ng/mL); Est Glom Filt Rate - Afr Amer 80 mL/min (>60); Estimated Creatinine Clearance 60.92 ml/min; Glucose 106 mg/dL (74-106); Methadone Urine VISTA NEGATIVE (< 300 ng/mL); PCP Urine VISTA NEGATIVE (< 25 ng/mL); Potassium 3.6 mmol/L (3.5-5.1); Sodium Level 142 mmol/L (136-145); THC Urine VISTA POSITIVE (< 50 ng/mL); Vista UDS pH Range 6
[2022-06-21 11:09] LABS: Alcohol, Blood (Medical)-Serum < 3.0 mg/dL
[2022-06-21 11:10] LABS: Internal QC Validated? YES +Cl - CLEAR BKGD; Pregnancy, Serum, hCG Quali. NEGATIVE Negative
--- NOTE | 2022-06-21 14:58 | HP.PCM.HOS_ITS ---
HPI - General General Date of Admission: 06/21/22 Date of Service: 06/21/22 Chief Complaint: Chronic back pain, using Fentanyl again. HPI Narrative The patient is a 36 y/o F w/ PMHx: Hx Polysubstance abuse (heroin, methamphetamine, marijuana), Hepatitis C, HTN, Tobacco use, Hx lumbar spine osteomyelitis who presents to the [facility] ED on 06/21/22 with history of chronic discomfort in her back with prior noted osteomyelitis of the back treated in the summer and she had reportedly at that time attempted to stay clean however resumed polysubstance abuse used, specifically snorting primarily heroin as well as fentanyl near to 2 weeks toward the end of her IV antibiotic therapy treatments eventually requesting detox treatment following ED evaluation for her back discomfort with stable appearing MRI and no concerning lab findings. She notes that her last usage was in the morning prior to presentation. Currently she is complaining of some mild abdominal cramping and discomfort, general body aches, fatigue and restlessness. She states she is interested again in trying for clean status. Work-up in the ED included T98.5, heart rate 101, BP 162/102, respiratory rate 16, high percent on room air, CBC with WC 7.3, hemoglobin 13, platelet 234 without marked shift, BMP with chloride 108 otherwise unremarkable, ESR 8, CRP less than 2.90, serum negative, urinalysis unremarkable, UDS with positive amphetamine, positive MDMA, positive cannabis, ethyl alcohol less than 3, rapid SARS COVID antigen negative, lumbar spine MRI noted to be abnormal with the lumbar spine showing persistent T1 hypointensity and T2 hyperintensity of the right L4 pedicle extending towards the right L4 subarticular facet, right L5 pedicle extending towards the right L5 superior articular facet, these enhance with IV contrast including the perineural fat in the right L4-5 intervertebral neural foramen, additionally abnormal contrast- enhancement around the right L4-5 facet joint more than the right L3-L4 facet joint, these are chronic findings and may all be related to at least a degenerative inflammatory arthropathy but without significant change since 12/17/2021, unclear etiology, fluoroscopy guided biopsy of the right L5 pedicle or the right L4 pedicle could be helpful in further elucidation, metastatic bone neoplasm is doubtful since these have not changed when compared to 12/17/2021, no MRI evidence of lumbar disc extrusion or disc protrusion. [facility] Medical History Anemia affecting Cellulitis Drug abuse Family history of cleft lip and palate Hepatitis C antibody positive in blood History of abnormal cervical Pap smear History of heroin abuse History of pre-eclampsia Hypertension Substance abuse Home Medications NK 06/21/22 [History Last Taken Unknown] Allergy/AdvReac Type Severity Reaction Status Date / Time coconut Allergy Rash Verified 06/21/22 09:54 Family History Father Heart disease Mother Anxiety and depression Surgical History No history of previous surgery Social History (Updated 06/21/22 @ 20:[address] Kierra Echevarria MD) household members: other details: Lives with a friend. 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 HEENT: Eyes: No visual loss, blurred vision, double vision or yellow sclerae. Ears, Nose, Throat: No hearing loss, sneezing, congestion, runny nose or sore t hroat. SKIN: + Various pink regions and abrasions. CARDIOVASCULAR: No chest pain, chest pressure or chest discomfort, palpitations, edema, orthopnea, syncopal events. RESPIRATORY: No shortness of breath, cough or sputum, wheezing, hemoptysis. GASTROINTESTINAL: + anorexia, nausea without vomiting, abdominal cramping, No diarrhea, melena, BRBPR. GENITOURINARY: No dysuria, frequency, urgency or retention. NEUROLOGICAL: No headache, dizziness, syncope, paralysis, ataxia, numbness or tingling in the extremities, focal weakness, change in bowel or bladder control, seizure. MUSCULOSKELETAL:+ muscle, back pain, joint pain or stiffness. HEMATOLOGIC: No anemia, bleeding or bruising. LYMPHATICS: No enlarged nodes. No history of splenectomy. PSYCHIATRIC: + history of depression or anxiety. ENDOCRINOLOGIC: No reports of sweating, cold or heat intolerance. No polyuria or polydipsia. ALLERGIES: No history of asthma, hives, eczema or rhinitis. Vital Signs Vital Signs Vital Signs: 06/21/22 09:54 Temperature 98.5 F Temperature Source Temporal Pulse Rate 101 H Respiratory Rate 16 Blood Pressure 162/102 H Blood Pressure Mean 122 Pulse Ox 100 Oxygen Delivery Method Room Air Weight Weight: 126 lb 12.8 oz Body Mass Index (BMI) 23.1 Physical Exam Narrative Physical Examination: General: Awake, alert, oriented x 3 and cooperative, extremely restless, moving in the bed and by her bedside. Skin: Normal color, normal turgor, no icterus, no cyanosis except occasional scratch alex, abrasions. HEENT: AT/NC, EOMI, PERRLA, dry MM, no carotid bruits or JVD noted. Lungs: Diminished, greater bases, mildly increased effort, no rales, ronchi or wheezing. Heart: Mildly tachycardic with regular rhythm; no gallop, rub audible. Abdomen: Soft, thin habitus, mild generalized discomfort to palpation with no rebound or guarding, no marked distention, mildly hyperactive bowel sounds, no obvious HSM. Extremities: No cyanosis, clubbing, or edema. Neurological: Patient awake, alert, oriented as noted, cognitive function intact; pupils equally reactive to light and accommodation, cranial nerves II- XII grossly normal, moving all 4 extremities, no focal deficits, strength mildly to moderately decreased secondary to acute presentation, extremely restless. Psychiatric: Affect appears extremely restless, no acute evidence of depressive or anxiety feelings but does have underlying history. Results Lab / Micro Data Result Diagrams: 06/21/22 10:20 06/21/22 10:20 Labs: Laboratory Results - last 24 hr 06/21/22 10:20: WBC 7.3, RBC 4.31, Hgb 13.0, Hct 37.9, MCV 87.9, MCH 30.2, MCHC 34.3, RDW Std Deviation 40.8, RDW Coeff of Smiley 12.5, Plt Count 234, MPV 8.6, Immature Gran % (Auto) 0.100, Neut % (Auto) 42.4 L, Lymph % (Auto) 45.4 H, Carbon % (Auto) 7.6, Eos % (Auto) 3.7, Baso % (Auto) 0.8, Absolute Neuts (auto) 3.1, Absolute Lymphs (auto) 3.33, Nucleated RBC % 0, ESR 8 06/21/22 10:20: Sodium 142, Potassium 3.6, Chloride 108 H, Carbon Dioxide 30.0, Anion Gap 4 L, BUN 11, Creatinine 1.00, Estim Creat Clear Calc 60.92, Est GFR (MDRD) Af Amer 80, Est GFR (MDRD) Non-Af 67, BUN/Creatinine Ratio 11.1, Glucose 106, Calcium 8.7, C-React Prot Ext Range < 2.90 06/21/22 10:20: Ethyl Alcohol < 3.0 06/21/22 10:20: Serum , Qual NEGATIVE 06/21/22 10:20: Urine Color Yellow, Urine Clarity Clear, Urine pH 7.0, Ur Specific Sherwood 1.010, Urine Protein Negative, Urine Glucose (UA) Normal, Urine Ketones Negative, Urine Occult Blood Negative, Urine Nitrite Negative, Urine Bilirubin Negative, Urine Urobilinogen Normal, Ur Leukocyte Esterase 100 H, Urine RBC 0 SEEN, Urine WBC 0-5 SEEN, Ur Squamous Epith Cells 0-5 SEEN, Urine Bacteria 0 SEEN, Urine Mucus 0 SEEN 06/21/22 10:20: Urine Opiates Screen NEGATIVE, Urine Methadone Screen NEGATIVE, Ur Barbiturates Screen NEGATIVE, Ur Phencyclidine Scrn NEGATIVE, Ur Amphetamines Screen POSITIVE H, MDMA (Ecstasy) Screen POSITIVE H, U Benzodiazepines Scrn NEGATIVE, Urine Cocaine Screen NEGATIVE, U Cannabinoids Screen POSITIVE H, Ur Drug Screen Comment Micro: Microbiology 06/21/22 10:20 Nasal Secretion SARS-CoV-2 & FLU Antigen (Rapid) - Final Radiology Impression Lumbar Spine MRI 06/21/22 10:32 IMPRESSION: undefined Assessment & Plan Assessment/Plan (1) Opiate withdrawal: PLAN: Plan The patient is a 36 y/o F w/ PMHx: Hx Polysubstance abuse (heroin, methamphetamine, marijuana), Hepatitis C, HTN, Tobacco use, Hx lumbar spine osteomyelitis who presents to the [facility] ED on 06/21/22 with history of chronic discomfort in her back with prior noted osteomyelitis of the back treated in the summer and she had reportedly at that time attempted to stay clean however resumed polysubstance abuse used, specifically snorting primarily heroin as well as fentanyl near to 2 weeks toward the end of her IV antibiotic therapy treatments eventually requesting detox treatment following ED evaluation for her back discomfort with stable appearing MRI and no concerning lab findings. #1. Acute Opiate Withdrawal: Will admit to [facility], routine labs including CBC, CMP, urine for drug screen obtained in the ED as noted, will initiate and continue on protocol with tapering course of Subutex, as needed tylenol, ibuprofen, bowel regimen, gabapentin, Bentyl, Vistaril, methocarbamol, clonidine, PRN nightly trazodone for insomnia, IV fluids, IV antiemetics. Once patient clinically improved and completion of taper nearing will plan consultation with case management for transition to next level of rehabilitation care. #2. Hypertension, untreated: Patient is not on any medications, unclear if her blood pressure is baseline more appropriate when she is not abusing drugs and could certainly be acutely elevated presently secondary to withdrawal symptoms, suspect likely will need to add oral regimen but in the interim we will maintain on IV hydralazine and reassess once she is initiated on a tapering withdrawal protocol. #3. Polysubstance Abuse, IVDA Hx, History of Hepatitis C, Chronic: Strongly encouraged clean status and following discussions per patient request we will obtain HIV and repeat hepatitis panel in case of coinfection onset. #4. Tobacco Abuse: Encouraged cessation, inpatient consultation per RT, NR if desired. #5. History of Lumbar Osteomyelitis: As noted in presentation lumbar MRI spine similar to prior, stable appearing, inflammatory markers normal, no marked WC elevation or shift, afebrile, encourage frequent positional changes and parent agents per admission protocol. #6. Anxiety and depression: We will continue patient home hydroxyzine as needed regimen as well as escitalopram. #7. GERD: We will continue patient on PPI. #8. DVT prophylaxis: Low risk, encourage ambulation. Admission Evaluation Time spent evaluating chart, patient history, patient evaluation, care planning and discussion with specialists: 60 minutes. Charges/Coding Visit Charges Inpatient E&M: 33106 Init Hosp L2
[2022-06-21 15:24] VITALS: BP 155/89; PULSE 99; RESP 16; TEMP 36.3; O2SAT 99
--- NOTE | 2022-06-21 15:39 | NURSING ---
MED SURG WHITE OPIATE DEPENDENCE, CHRONIC BACK PAIN
[2022-06-21] MEDS: Ibuprofen 600 MG Tablet PO (17:08)
[2022-06-21] MEDS: hydrOXYzine PAM 25 MG Capsule 50 MG PO (17:09)
[2022-06-21] MEDS: Lactated Ringers 1,000 ML 125 ML IV (17:09)
[2022-06-21 17:14] VITALS: BP 153/108; PULSE 109; RESP 20; TEMP 36.8; O2SAT 98
[2022-06-21 17:17] VITALS: BMI 21.2
[2022-06-21 17:53] LABS: HIV - WCH Non-Reactive (Nonreactive)
[2022-06-21] MEDS: Buprenorphine HCl 2 MG TAB.SUBL SL (18:02)
[2022-06-21 21:54] VITALS: BP 143/89; PULSE 85; RESP 16; TEMP 37.1; O2SAT 100
[2022-06-21] MEDS: Methocarbamol 750 MG Tablet 1500 MG PO (21:59)
[2022-06-21] MEDS: traZODone 100 MG Tablet PO (21:59)
[2022-06-21] MEDS: cloNIDine HCl 0.1 MG Tablet PO (21:59)
[2022-06-21 23:07] LABS: Hepatitis B Surface Antibody Reactive; Hepatitis B Surface Antigen Non-Reactive (Nonreactive); Hepatitis C Antibody Preliminary Reactive (Nonreactive)
[2022-06-22] VITALS (7 sets, daily range): BP systolic 132–160; BP diastolic 84–105; PULSE 74–101; RESP 16–18; TEMP 36.7–37.1; O2SAT 94–100
[2022-06-22] MEDS: Buprenorphine HCl 2 MG TAB.SUBL SL ×3 (02:01→17:46)
[2022-06-22] MEDS: hydrOXYzine PAM 25 MG Capsule 50 MG PO ×2 (06:32→20:42)
[2022-06-22] MEDS: Methocarbamol 750 MG Tablet 1500 MG PO ×2 (06:32→20:42)
[2022-06-22] MEDS: Gabapentin 300 MG Capsule PO (06:33)
[2022-06-22] MEDS: cloNIDine HCl 0.1 MG Tablet PO ×2 (06:33→20:42)
[2022-06-22] MEDS: FLU VACC QS2022-23(6MOS UP)/PF 60 MCG/0.5 ML SYRINGE IM (08:57)
--- NOTE | 2022-06-22 09:25 | ADDICTION ---
This SW went to engage with pt, but she was sleeping. Several attempts to rouse, but were unsuccessful.
--- NOTE | 2022-06-22 11:18 | PN.HOSP_ITS ---
Reason for Visit Reason for Visit: Diagnoses Opioid use, unspecified with withdrawal (06/21/22) Subjective Subjective Patient seen and examined. She had no active complaints. Review of systems is otherwise negative. Objective Data Objective Data Vital Signs: Vital Signs Temp Pulse Resp BP Pulse Ox O2 Del Method 98.7 F 81 16 160/105 H 99 Room Air 06/22/22 09:04 06/22/22 09:04 06/22/22 09:04 06/22/22 09:04 06/22/22 09:22 06/22/22 09:22 Oxygen Delivery Method Room Air Weight: 116 lb 2.938 oz Body Mass Index (BMI) 21.2 Intake & Output: Intake and Output for Last 24 Hours 06/20/22 06/21/22 06/22/22 23:59 23:59 23:59 Intake Total 680 / 680 1000 / 1000 Balance 680 / 680 1000 / 1000 Lab / Micro Data Result Diagrams: 06/21/22 10:20 06/21/22 10:20 Labs: Laboratory Results - last 24 hr 06/21/22 10:20: HIV 1&2 Antibody Non-Reactive 06/21/22 10:20: Hep Bs Antigen Non-Reactive, Hep Bs Antibody Reactive, Hepatitis C Antibody Preliminary Reactive Micro: Microbiology 06/21/22 10:20 Nasal Secretion SARS-CoV-2 & FLU Antigen (Rapid) - Final Radiography Diagnostic Testing: Radiology Impression Lumbar Spine MRI 06/21/22 10:32 IMPRESSION: undefined Physical Exam Const alert, oriented x3 and no apparent distress HEENT head/scalp atraumatic, moist oral mucous membranes and oropharynx normal Head and Scalp: normocephalic Mouth: oral and palatal mucosa normal Eyes PERRL Neck no lymphadenopathy, supple and no JVD Resp normal respiratory effort, no retractions, no use of accessory muscles and clear to auscultation bilaterally Cardio regular rate, regular rhythm, S1 normal heart sound and S2 normal heart sound GI normal to inspection, nondistended, normoactive bowel sounds, soft to palpation, non-tender and non-distended Extremity normal to inspection, full ROM and no clubbing, cyanosis or edema Skin Skin Narrative: has macular rash over upper and lower extremities Neuro oriented x3, CN's II-XII intact bilaterally, moves all extremities and no focal motor deficits Sensorium / Orientation: awake and alert Motor Exam: strength 5/5 throughout Psych affect normal Assessment & Plan Assessment/Plan (1) Opiate withdrawal: PLAN: Plan #Acute opioid withdrawal * snorts heroin * on opioid withdrawal protocol with buprenorphine * adjunctive meds for symptomatic relief * #Chronic back pain due to lumbar osteomyelitis * curently on buprenorphine * #Hepatitis C: * treatment naive. * COunseled she would need to be clean from polysubstance abuse for at least 6 months to qualify for treatment. * #History of lumbar osteomyelitis * lumbar MRI done was similar to previous ones done. * #Anxiety and depression; on escitalopram #Elevated blood prssure: 160/105. * Not on any meds. * Will monitor, and start oral BP meds if it remains elevated. * DVT prophylaxis; encourage to ambulate Charges/Coding Visit Charges Inpatient E&M: 19494 Subs Hosp L2
[2022-06-22] MEDS: traZODone 100 MG Tablet PO (20:42)
[2022-06-23 02:38] VITALS: BP 129/73; PULSE 85; RESP 14; TEMP 36.7; O2SAT 100
[2022-06-23] MEDS: Buprenorphine HCl 2 MG TAB.SUBL SL ×3 (02:41→18:03)
[2022-06-23] MEDS: Methocarbamol 750 MG Tablet 1500 MG PO ×3 (02:42→23:25)
[2022-06-23] MEDS: hydrOXYzine PAM 25 MG Capsule 50 MG PO ×2 (02:42→16:03)
[2022-06-23] MEDS: Dicyclomine 10 MG Capsule 20 MG PO (09:49)
[2022-06-23] MEDS: Ibuprofen 600 MG Tablet PO (09:49)
[2022-06-23] MEDS: Gabapentin 300 MG Capsule PO ×2 (09:49→19:52)
[2022-06-23 09:56] VITALS: BP 144/90; PULSE 82; RESP 18; TEMP 37.1; O2SAT 100
--- NOTE | 2022-06-23 11:08 | PN.HOSP_ITS ---
Reason for Visit Reason for Visit: Diagnoses Opioid use, unspecified with withdrawal (06/21/22) Subjective Subjective Patient seen and examined. She had no complaints and had an uneventful night. Review of systems is otherwise negative. Objective Data Objective Data Vital Signs: Vital Signs Temp Pulse Resp BP Pulse Ox O2 Del Method 98.8 F 82 18 144/90 H 100 Room Air 06/23/22 09:56 06/23/22 09:56 06/23/22 09:56 06/23/22 09:56 06/23/22 09:56 06/23/22 09:57 Oxygen Delivery Method Room Air Weight: 116 lb 2.938 oz Body Mass Index (BMI) 21.2 Intake & Output: Intake and Output for Last 24 Hours 06/21/22 06/22/22 06/23/22 23:59 23:59 23:59 Intake Total 680 / 680 1000 / 1000 Balance 680 / 680 1000 / 1000 Lab / Micro Data Result Diagrams: 06/21/22 10:20 06/21/22 10:20 Micro: Microbiology 06/21/22 10:20 Nasal Secretion SARS-CoV-2 & FLU Antigen (Rapid) - Final Physical Exam Const alert, oriented x3 and no apparent distress HEENT head/scalp atraumatic, moist oral mucous membranes and oropharynx normal Head and Scalp: normocephalic Mouth: oral and palatal mucosa normal Eyes PERRL Neck no lymphadenopathy, supple and no JVD Resp normal respiratory effort, no retractions, no use of accessory muscles and clear to auscultation bilaterally Cardio regular rate, regular rhythm, S1 normal heart sound and S2 normal heart sound GI normal to inspection, nondistended, normoactive bowel sounds, soft to palpation, non-tender and non-distended Extremity normal to inspection, full ROM and no clubbing, cyanosis or edema Skin Skin Narrative: has macular rash over upper and lower extremities Neuro oriented x3, CN's II-XII intact bilaterally, moves all extremities and no focal motor deficits Sensorium / Orientation: awake and alert Motor Exam: strength 5/5 throughout Psych affect normal Assessment & Plan Assessment/Plan (1) Opiate withdrawal: PLAN: Plan #Acute opioid withdrawal * on opioid withdrawal protocol with buprenorphine * adjunctive meds for symptomatic relief * #Chronic back pain due to lumbar osteomyelitis * currently on buprenorphine * #Hepatitis C: * treatment naive. * Counseled she would need to be clean from polysubstance abuse for at least 6 months to qualify for treatment. * #History of lumbar osteomyelitis * lumbar MRI done was similar to previous ones done. * #Anxiety and depression; on escitalopram #Elevated blood prssure: * BP is improving. * Not on any meds. * Will monitor, * to follow up with PCP for initiation of BP meds as needed * DVT prophylaxis; encourage to ambulate Disposition: for dc tomorrow Charges/Coding Visit Charges Inpatient E&M: 64684 Subs Hosp L2
[2022-06-23] MEDS: cloNIDine HCl 0.1 MG Tablet PO (16:03)
[2022-06-23 16:04] VITALS: BP 150/100; PULSE 91; RESP 18; TEMP 37.1; O2SAT 100
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
[2022-06-23] MEDS: Loperamide 2 MG Capsule PO (19:52)
[2022-06-23 19:57] VITALS: BP 130/88; PULSE 93; RESP 14; TEMP 36.7; O2SAT 100
[2022-06-23] MEDS: traZODone 100 MG Tablet PO (23:25)
[2022-06-24 06:00] VITALS: BP 129/85; PULSE 75; RESP 14; TEMP 36.8; O2SAT 100
[2022-06-24] MEDS: Buprenorphine HCl 2 MG TAB.SUBL SL (06:01)
[2022-06-24 07:05] VITALS: O2SAT 93
[2022-06-24 09:02] VITALS: BP 139/92; PULSE 86; RESP 18; TEMP 36.7; O2SAT 99
[2022-06-24] MEDS: hydrOXYzine PAM 25 MG Capsule 50 MG PO (09:06)
[2022-06-24] MEDS: Dicyclomine 10 MG Capsule 20 MG PO (09:06)
[2022-06-24] MEDS: Methocarbamol 750 MG Tablet 1500 MG PO (09:06)
[2022-06-24] MEDS: cloNIDine HCl 0.1 MG Tablet PO (09:06)
--- NOTE | 2022-06-24 11:19 | DCINST_ITS ---
Discharge Instructions Diet Discharge Diet: No restrictions Activity Discharge Activity: Return to Normal Activity Weight Bearing Status: Weight bearing as tolerated Dressing / Incision Call your doctor if you observe: Fever of 101 or Higher, Shortness of breath, Dizziness, Swelling in the ankles, Chest pain and Increased palpitations (irregular heartbeat) Follow Up Care Test Results: Test results from this visit will be discussed in further detail at your follow- up appointment, if applicable. Discharge Plan Admission Admit Date/Time: 06/21/22 14:59 Primary Reason for Your Visit: acute opioid withdrawal Attending Provider: Ale Narvaez Primary Care Provider: Kiran Ortiz Consulting Providers: Kierra Echevarria Instructions Patient Instructions: ED Opiate Abuse, ED Opioid Withdrawal Discharge Orders/Prescriptions Prescriptions: No Action NK Referrals / Follow Up: Kiran Ortiz MD [Primary Care Provider] - Within 2 Weeks Disposition Disposition (needs filled in before D/C Order can be placed): Home, Self Care
--- NOTE | 2022-06-24 11:19 | DS.PCM_ITS ---
Providers Date of Admission: 06/21/22 Date of Discharge: 06/24/22 Primary Care Physician: Dr. Kiran Ortiz MD Reason For Visit: OPIATE WITHDRAWAL TREATMENT Diagnosis Discharge Diagnosis (1) Opiate withdrawal: Status: Acute Code(s): F11.93 - Opioid use, unspecified with withdrawal Plan #Acute opioid withdrawal * on opioid withdrawal protocol with buprenorphine * adjunctive meds for symptomatic relief * #Chronic back pain due to lumbar osteomyelitis * currently on buprenorphine * #Hepatitis C: * treatment naive. * Counseled she would need to be clean from polysubstance abuse for at least 6 months to qualify for treatment. * #History of lumbar osteomyelitis * lumbar MRI done was similar to previous ones done. * #Anxiety and depression; on escitalopram #Elevated blood prssure: * BP is improving. * Not on any meds. * Will monitor, * to follow up with PCP for initiation of BP meds as needed * DVT prophylaxis; encourage to ambulate Disposition: for dc tomorrow Medications at Discharge Home Medications NK 06/21/22 Hospital Course Operations None Procedures None Summary of Care Provided Minutes Spent on Discharge: 45 Hospital Course: Patient is a 36-year-old female with a past medical history as outlined was admitted with a complaint of chronic back pain abdominal discomfort and generalized aches and fatigue. She had a history of chronic opioid use. Urine drug screen was positive for MDMA, amphetamine and cannabis. Her chronic back pain was from lumbar osteomyelitis. She had MRI of the lumbar spine admission due to complaints of mild back pain which showed chronic changes similar to prior and no new evidence of any abscess or new osteomyelitis. She was placed on opioid withdrawal protocol with buprenorphine. Tolerated a 3-day detox process. She remained stable and was discharged home on 06/24/2022. She is follow-up with her primary care doctor within 1 to 2 weeks and also follow-up on outpatient basis for Services. Patient seen and examined prior to discharge. She had no active complaints and had an uneventful night. Review of systems otherwise negative. Labs and vitals reviewed. Home medication reviewed and reconciled. Physical Exam Const alert, oriented x3 and no apparent distress General Appearance: cooperative and comfortable Orientation / Consciousness: awake HEENT normocephalic, head/scalp atraumatic, hearing grossly normal bilaterally, moist oral mucous membranes and oropharynx normal Mouth: oral and palatal mucosa normal Eyes PERRL Neck no lymphadenopathy, supple and no JVD Resp normal respiratory effort, no retractions, no use of accessory muscles and clear to auscultation bilaterally Cardio regular rate, regular rhythm, S1 normal heart sound and S2 normal heart sound GI normal to inspection, nondistended, normoactive bowel sounds, soft to palpation, non-tender and non-distended Extremity normal to inspection, full ROM and no clubbing, cyanosis or edema Skin Skin Narrative: has macular rash over upper and lower extremities Neuro oriented x3, CN's II-XII intact bilaterally, moves all extremities and no focal motor deficits Sensorium / Orientation: awake and alert Motor Exam: strength 5/5 throughout Psych affect normal Weight / BMI Weight Weight: 116 lb 2.938 oz Body Mass Index (BMI) 21.2 ABG / Lab / Microbiology Data Result Diagrams: 06/21/22 10:20 06/21/22 10:20 Microbiology: Microbiology 06/21/22 10:20 Nasal Secretion SARS-CoV-2 & FLU Antigen (Rapid) - Final D/C Instructions Discharge Diet: No restrictions Weight Bearing Status: Weight bearing as tolerated Call your doctor if you observe: Fever of 101 or Higher, Shortness of breath, Dizziness, Swelling in the ankles, Chest pain and Increased palpitations (irregular heartbeat) Meaningful Use Info Meaningful Use Diagnoses (Choose all that apply): None applicable Discharge Plan Admission Admit Date/Time: 06/21/22 14:59 Primary Reason for Your Visit: acute opioid withdrawal Attending Provider: Ale Narvaez Primary Care Provider: Kiran Ortiz Consulting Providers: Kierra Echevarria Instructions Patient Instructions: ED Opiate Abuse, ED Opioid Withdrawal Discharge Orders/Prescriptions Prescriptions: No Action NK Referrals / Follow Up: Kiran Ortiz MD [Primary Care Provider] - Within 2 Weeks Disposition Disposition (needs filled in before D/C Order can be placed): Home, Self Care Charges/Coding Visit Charges Inpatient E&M: 79162 Disch Hosp >30min
== END 2022-06-24 13:05 | disposition home or self-care (01) | DRG 772 ==
LOC: ED 15:24 → MS3 15:50
PROVIDERS: Admitting Provider Family Medicine; Emergency Provider Emergency Medicine; PCP Family Medicine; Visit Provider Student in an Organized Health Care Education/Training Program
DX: F11.93 Opioid use, unspecified with withdrawal (principal); F12.90 Cannabis use, unspecified, uncomplicated; F17.210 Nicotine dependence, cigarettes, uncomplicated; M54.9 Dorsalgia, unspecified; I10 Essential (primary) hypertension; F15.90 Other stimulant use, unspecified, uncomplicated; K21.9 Gastro-esophageal reflux disease without esophagitis; F41.9 Anxiety disorder, unspecified; F32.A Depression, unspecified; G89.29 Other chronic pain; Z23 Encounter for immunization; Z20.822 Contact with and (suspected) exposure to COVID-19; Z86.19 Personal history of other infectious and parasitic diseases; Z87.39 Personal history of other diseases of the musculoskeletal system and connective tissue; R03.0 Elevated blood-pressure reading, without diagnosis of hypertension
CPT/HCPCS: 72158; 80048; 80307; 81001; 82077; 84703; 85025; 85652; 86140; 86703; 86706; 86803; 87340; 87428; 99284; A9575; J7120; 90686; A4216

== ENCOUNTER 2022-09-03 18:38 | Emergency (ER) | payer MEDICAID, SELFPAY ==
[2022-09-03 18:39] VITALS: BP 145/101; PULSE 75; RESP 14; TEMP 37; O2SAT 97; BMI 21.2
--- NOTE | 2022-09-03 18:57 | EX.ED.DYSGE1 ---
HPI <ODRI Olivares - Last Filed: 09/03/22 20:55> History of Present Illness Chief Complaint: General Illness Narrative Narrative: Patient presenting today with concerns that her osteomyelitis is back. She was diagnosed with osteomyelitis in the lumbar spine in December 2021. She was treated for this at [facility]. She states that over the past few days she has had night sweats and cannot seem to get warm. She states that she has been 2 weeks clean from heroin and fentanyl and does have a remote history of IV drug use. She denies any increased back pain, shortness of breath, abdominal pain, nausea, vomiting, diarrhea, urinary symptoms. PFSH <DORI Olivares - Last Filed: 09/03/22 20:55> [facility] Medical History Anemia affecting Cellulitis Chronic back pain Drug abuse Family history of cleft lip and palate Hepatitis C antibody positive in blood History of abnormal cervical Pap smear History of heroin abuse History of pre-eclampsia Hypertension Opiate dependence Substance abuse Substance abuse Home Medications NK 06/21/22 [History Last Taken Unknown] Allergy/AdvReac Type Severity Reaction Status Date / Time acetaminophen [From Percocet] Allergy Hives Verified 09/03/22 18:39 coconut Allergy Rash Verified 06/21/22 09:54 oxycodone [From Percocet] Allergy Hives Verified 09/03/22 18:39 Family History Father Heart disease Mother Anxiety and depression Surgical History No history of previous surgery Social History household members: other details: Lives with a friend. 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 <DORI Olivares - Last Filed: 09/03/22 20:55> ROS ED Constitutional Constitutional ED: Reports chills and sweats; Denies fever(s) Cardiovascular Cardiovascular: Denies chest pain or palpitations Respiratory/Chest Respiratory/Chest: Denies cough or dyspnea Gastrointestinal Gastrointestinal: Denies abdominal pain, diarrhea, nausea or vomiting Genitourinary Genitourinary ED: Denies dysuria, hematuria or urinary urgency Musculoskeletal Musculoskeletal: Reports back pain; Denies myalgias Integumentary Denies abscess, Abrasions or rash Neurologic Neurologic: Denies confusion, dizziness or paresthesias Psychiatric Psychiatric: Denies anxiety, depression, suicidal ideation or suicidal thoughts EXAM <DORI Olivares - Last Filed: 09/03/22 20:55> Physical Exam Const Vital Signs: 09/03/22 18:39 09/03/22 20:22 Temperature 98.6 F Temperature Source Temporal Pulse Rate 75 82 Respiratory Rate 14 15 Blood Pressure 145/101 H 134/69 H Blood Pressure Mean 115 Pulse Ox 97 97 Oxygen Delivery Method Room Air Positive well nourished, well developed and no apparent distress General Appearance ED: well developed HEENT Reports normocephalic and head/scalp atraumatic Mouth ED: Yes moist mucous membranes normal Eyes PERRL and EOMs intact bilaterally Neck full ROM and supple Chest Wall inspection of chest normal Resp normal respiratory effort and clear to auscultation bilaterally Cardio regular rate and regular rhythm GI soft to palpation, non-tender, non-distended and no masses Back/Spine normal ROM and normal to inspection Extremity normal to inspection and full ROM Extremity Narrative: Multiple psoriasis lesions to patient's arms bilaterally Neuro oriented x3, CN's II-XII intact bilaterally, moves all extremities, no focal motor deficits and no sensory deficits noted Sensorium / Orientation: awake and alert Motor Exam: strength 5/5 throughout Psych mental status grossly normal and thought process normal Skin Skin Narrative: Multiple psoriasis lesions to patient's extremities, chest, and back. <Dr. Terry Serrano MD - Last Filed: 09/03/22 19:49> Physical Exam Const Vital Signs: 09/03/22 18:39 09/03/22 20:22 Temperature 98.6 F Temperature Source Temporal Pulse Rate 75 82 Respiratory Rate 14 15 Blood Pressure 145/101 H 134/69 H Blood Pressure Mean 115 Pulse Ox 97 97 Oxygen Delivery Method Room Air MDM <DORI Olivares - Last Filed: 09/03/22 20:55> [facility] Narrative Medical decision making narrative: Patient presenting due to concerns that she has osteomyelitis in her lumbar spine again. She had a history of this in December 2021. She is not complaining of any back pain today, she is just complaining of intermittent chills and night sweats over the past few days. She has no other complaints. She is afebrile here well-appearing, and in no acute distress. She is not complaining of any URI symptoms. She will be worked up for other possible areas of infection. UA is negative for any UTI, chest x-ray negative for any infiltrate. CBC negative for any leukocytosis, anemia, electrolyte abnormality, or SHAWN. Patient's presentation is not suspicious for reinfection of osteomyelitis in her lumbar spine as she is not complaining of any back pain and she does not have an elevated WBC. She states she has gone 3 months without a menstrual period and wanted to be tested for , this is negative. She does not have a PCP at this time, I have given her referral for one. She has been given return instructions and will be discharged home in stable condition. She is comfortable with plan. I have personally performed a face to face assessment of the patient and have reviewed the SHIRA Note. I performed a substantive portion of the visit including all aspects of the following. My spencer findings include: History is [36-year-old female history of IV drug abuse. States she has been using last several weeks but has used in the last several months. History of prior lumbar osteomyelitis. Concerned that the osteomyelitis may have returned. She is really not complaining of any significant back pain. States she is not feeling well. Denies any documented fever.] Exam is [36-year-old female no acute distress. Vital signs stable afebrile. Does not look septic or toxic. No distress. HEENT exam unremarkable. Neck nontender no lymphadenopathy. Lungs clear to auscultation. Heart regular rate and rhythm rate about 70 no murmur. Chest wall nontender. Abdomen soft nontender. Moving all 4 extremities. She has psoriasis of the skin. There is no abscesses or cellulitis. Calves are nontender without edema. Back is nontender. There is no redness or warmth. She has multiple tattoos. Neurologically she is awake and alert.] Medical Decision Making [36-year-old with history of IV drug abuse and a history of osteomyelitis. Exam benign. Screening labs including CBC and chemistry are unremarkable. Chest x-ray is negative. Are awaiting the UA and she will be discharged home with outpatient follow-up.] Other additions or changes: [None] Lab Data Labs: Laboratory Results - last 24 hr 09/03/22 09/03/22 09/03/22 19:15 19:15 19:25 WBC 8.6 RBC 5.09 Hgb 14.5 Hct 44.3 MCV 87.0 MCH 28.5 MCHC 32.7 RDW Std Deviation 40.9 RDW Coeff of Smiley 13.1 Plt Count 338 MPV 8.7 Immature Gran % (Auto) 0.500 Neut % (Auto) 71.4 H Lymph % (Auto) 22.3 [place] % (Auto) 4.5 Eos % (Auto) 0.7 Baso % (Auto) 0.6 Absolute Neuts (auto) 6.1 Absolute Lymphs (auto) 1.91 Nucleated RBC % 0 Sodium 138 Potassium 3.4 L Chloride 109 H Carbon Dioxide 24.0 Anion Gap 5 BUN 10 Creatinine 0.93 Estim Creat Clear Calc 65.51 Est GFR (MDRD) Af Amer 86 Est GFR (MDRD) Non-Af 71 BUN/Creatinine Ratio 10.7 Glucose 95 Calcium 9.3 Serum , Qual NEGATIVE Urine Color Urine Clarity Urine pH Ur Specific [place] Urine Protein Urine Glucose (UA) Urine Ketones Urine Occult Blood Urine Nitrite Urine Bilirubin Urine Urobilinogen Ur Leukocyte Esterase Urine RBC Urine WBC Ur Squamous Epith Cells Urine Bacteria Urine Mucus 09/03/22 19:25 WBC RBC Hgb Hct MCV MCH MCHC RDW Std Deviation RDW Coeff of Smiley Plt Count MPV Immature Gran % (Auto) Neut % (Auto) Lymph % (Auto) [place] % (Auto) Eos % (Auto) Baso % (Auto) Absolute Neuts (auto) Absolute Lymphs (auto) Nucleated RBC % Sodium Potassium Chloride Carbon Dioxide Anion Gap BUN Creatinine Estim Creat Clear Calc Est GFR (MDRD) Af Amer Est GFR (MDRD) Non-Af BUN/Creatinine Ratio Glucose Calcium Serum , Qual Urine Color Yellow Urine Clarity Clear Urine pH 6.5 Ur Specific [place] 1.015 Urine Protein 15 H Urine Glucose (UA) Normal Urine Ketones Negative Urine Occult Blood Negative Urine Nitrite Negative Urine Bilirubin Negative Urine Urobilinogen 1 H Ur Leukocyte Esterase 100 H Urine RBC 0 SEEN Urine WBC 0-5 SEEN Ur Squamous Epith Cells 0-5 SEEN Urine Bacteria 0 SEEN Urine Mucus 0 SEEN Radiography Diagnostic Testing: Clinical Impression(s) from Imaging Studies Chest X-Ray 09/03/22 19:20 IMPRESSION: No radiographic evidence of acute cardiopulmonary disease. Electronically Signed: Landon Keller MD at 19:55 EDT , <Dr. Terry Serrano MD - Last Filed: 09/03/22 19:49> [facility] MDM Narrative Medical decision making narrative: I have personally performed a face to face assessment of the patient and have reviewed the SHIRA Note. I performed a substantive portion of the visit including all aspects of the following. My spencer findings include: History is [36-year-old female history of IV drug abuse. States she has been using last several weeks but has used in the last several months. History of prior lumbar osteomyelitis. Concerned that the osteomyelitis may have returned. She is really not complaining of any significant back pain. States she is not feeling well. Denies any documented fever.] Exam is [36-year-old female no acute distress. Vital signs stable afebrile. Does not look septic or toxic. No distress. HEENT exam unremarkable. Neck nontender no lymphadenopathy. Lungs clear to auscultation. Heart regular rate and rhythm rate about 70 no murmur. Chest wall nontender. Abdomen soft nontender. Moving all 4 extremities. She has psoriasis of the skin. There is no abscesses or cellulitis. Calves are nontender without edema. Back is nontender. There is no redness or warmth. She has multiple tattoos. Neurologically she is awake and alert.] Medical Decision Making [36-year-old with history of IV drug abuse and a history of osteomyelitis. Exam benign. Screening labs including CBC and chemistry are unremarkable. Chest x-ray is negative. Are awaiting the UA and she will be discharged home with outpatient follow-up.] Other additions or changes: [None] History & Record Review Discussion w/independent historian: Patient Lab Data Attestation: I reviewed the patient's lab results. Lab results narrative: CBC normal. White count 8.6. H&H 14 and 44. Platelets 338. Electrolytes show potassium of 3.4 gap of 5 normal BUN and creatinine. Glucose of 95. Labs: Laboratory Results - last 24 hr 09/03/22 09/03/22 09/03/22 19:15 19:15 19:25 WBC 8.6 RBC 5.09 Hgb 14.5 Hct 44.3 MCV 87.0 MCH 28.5 MCHC 32.7 RDW Std Deviation 40.9 RDW Coeff of Smiley 13.1 Plt Count 338 MPV 8.7 Immature Gran % (Auto) 0.500 Neut % (Auto) 71.4 H Lymph % (Auto) 22.3 [place] % (Auto) 4.5 Eos % (Auto) 0.7 Baso % (Auto) 0.6 Absolute Neuts (auto) 6.1 Absolute Lymphs (auto) 1.91 Nucleated RBC % 0 Sodium 138 Potassium 3.4 L Chloride 109 H Carbon Dioxide 24.0 Anion Gap 5 BUN 10 Creatinine 0.93 Estim Creat Clear Calc 65.51 Est GFR (MDRD) Af Amer 86 Est GFR (MDRD) Non-Af 71 BUN/Creatinine Ratio 10.7 Glucose 95 Calcium 9.3 Serum , Qual NEGATIVE Urine Color Urine Clarity Urine pH Ur Specific [place] Urine Protein Urine Glucose (UA) Urine Ketones Urine Occult Blood Urine Nitrite Urine Bilirubin Urine Urobilinogen Ur Leukocyte Esterase Urine RBC Urine WBC Ur Squamous Epith Cells Urine Bacteria Urine Mucus 09/03/22 19:25 WBC RBC Hgb Hct MCV MCH MCHC RDW Std Deviation RDW Coeff of Smiley Plt Count MPV Immature Gran % (Auto) Neut % (Auto) Lymph % (Auto) [place] % (Auto) Eos % (Auto) Baso % (Auto) Absolute Neuts (auto) Absolute Lymphs (auto) Nucleated RBC % Sodium Potassium Chloride Carbon Dioxide Anion Gap BUN Creatinine Estim Creat Clear Calc Est GFR (MDRD) Af Amer Est GFR (MDRD) Non-Af BUN/Creatinine Ratio Glucose Calcium Serum , Qual Urine Color Yellow Urine Clarity Clear Urine pH 6.5 Ur Specific [place] 1.015 Urine Protein 15 H Urine Glucose (UA) Normal Urine Ketones Negative Urine Occult Blood Negative Urine Nitrite Negative Urine Bilirubin Negative Urine Urobilinogen 1 H Ur Leukocyte Esterase 100 H Urine RBC 0 SEEN Urine WBC 0-5 SEEN Ur Squamous Epith Cells 0-5 SEEN Urine Bacteria 0 SEEN Urine Mucus 0 SEEN Radiography Chest X-Ray - ED: 1 View, Read by ED Physician, Normal, Heart, Lungs, Mediastinum, Bony Structures and No Acute Disease Diagnostic Testing: Clinical Impression(s) from Imaging Studies Chest X-Ray 09/03/22 19:20 IMPRESSION: No radiographic evidence of acute cardiopulmonary disease. Electronically Signed: Landon Keller MD at 19:55 EDT , Chest x-ray, portable, single view shows no acute abnormality. Normal cardiac silhouette. Normal mediastinum. Normal lungs. No infiltrates. Discharge Plan Triage Chief Complaint: General Illness ED Midlevel Provider: Oanh Redding ED Provider: Terry Serrano Dx/Rx/DC Orders Clinical Impression: History of osteomyelitis, Chills (without fever), History of drug abuse Instructions: Addiction: Getting Help Prescriptions: No Action NK Primary Care Provider: Kiran Ortiz Referrals: Kiran Ortiz MD [Primary Care Provider] - Koffi Burr MD [Non-Staff] - 3-5 Days Activity Restrictions/Additional Instructions: Please follow-up with the PCP we have referred you to and return for any worsening of your symptoms. Disposition Disposition: Home, Self Care Discharge Date/Time: 09/03/22 20:23
--- NOTE | 2022-09-03 19:20 | RAD_ITS ---
INDICATION: cough EXAMINATION/TECHNIQUE: X-RAY - portable upright AP chest x-ray COMPARISON: None. FINDINGS: LINES/DEVICES: None. LUNGS: No consolidation, edema or effusion. No pneumothorax. MEDIASTINUM AND CARDIOVASCULAR STRUCTURES: Cardiac silhouette not enlarged. Central airways and mediastinal contour are unremarkable. BONES AND SOFT TISSUES: Unremarkable. RAD/Chest 1 View (Portable) IMPRESSION: No radiographic evidence of acute cardiopulmonary disease. Electronically Signed: Landon Keller MD at 19:55 EDT ,
[2022-09-03 19:22] LABS: Absolute Lymphocyte Count 1.91 X10^3/uL (0.83-4.51); Absolute Neutrophil Count 6.1 X10^3/uL (2.0-7.7); Basophil# 0.05 X10^3/uL; Basophil% 0.6 % (0-1); Eosinophil# 0.06 X10^3/uL; Eosinophils% 0.7 % (0-5); Hematocrit 44.3 % (37-47); Hemoglobin 14.5 g/dL (12.0-15.0); Lymphocyte # 1.91 X10^3/ul (0.83-4.51); Lymphocyte % 22.3 % (19-41); Mean Corp Hgb Conc 32.7 g/dL (32-36); Mean Corpuscular Hgb 28.5 pg (27.0-32.0); Mean Platelet Vol. 8.7 fl (6.2-12.0); Monocyte# 0.39 X10^3/uL; Monocyte% 4.5 % (0-10); NRBC Flagged by Analyzer 0 % (0-5); Neutrophil # 6.13 X10^3/uL (2.7-7.7); Neutrophil % 71.4 % (47-70); Platelet Count 338 K/mm3 (150-450); RBC Distribution Width CV 13.1 % (11.6-14.6); RBC Distribution Width SD 40.9 fl (35.1-43.9); Red Blood Count 5.09 M/mm3 (4.2-5.4); White Blood Count 8.6 K/mm3 (4.4-11.0)
[2022-09-03 19:39] LABS: Anion Gap 5 (5-15); BUN 10 mg/dL (7-18); BUN/Creat Ratio 10.7 RATIO (10-20); Calcium,Total 9.3 mg/dL (8.5-10.1); Chloride 109 mmol/L (98-107); Creatinine, Serum 0.93 mg/dL (0.55-1.02); EST Glomerular Filtration Rate 71 mL/min (>60); Est Glom Filt Rate - Afr Amer 86 mL/min (>60); Estimated Creatinine Clearance 65.51 ml/min; Glucose 95 mg/dL (74-106); Potassium 3.4 mmol/L (3.5-5.1); Sodium Level 138 mmol/L (136-145)
[2022-09-03 19:42] LABS: Bacteria 0 SEEN /hpf (None Seen); Mucous, Urine 0 SEEN /hpf (<or=2+); Red Blood Cells-Urine 0 SEEN /hpf (0-5)
[2022-09-03 19:43] LABS: Color, Urine Yellow (Yellow); Glucose, Dipstick Normal (Normal); Ketone-Dipstick Negative (Negative); Leukocyte Esterase-Dipstick 100 /ul (Negative); Nitrite-Dipstick Negative (Negative); Occult Blood-Urine Negative /ul (Negative); Protein-Dipstick 15 mg/dl (Negative); Specific Gravity, Urine 1.015 (1.002-1.030); Urine Bilirubin Dipstick Negative (Negative); Urine Clarity Clear (Clear); Urine Urobilinogen 1 mg/dl (Normal); Urine pH 6.5 (5.0 - 8.0)
[2022-09-03 19:59] LABS: Squamous Epithelial Cells - UA 0-5 SEEN /hpf (5-10); White Blood Cells 0-5 SEEN /hpf (0-5)
[2022-09-03 20:05] LABS: Internal QC Validated? YES +Cl - CLEAR BKGD; Pregnancy, Serum, hCG Quali. NEGATIVE Negative
[2022-09-03 20:22] VITALS: BP 134/69; PULSE 82; RESP 15; O2SAT 97
== END 2022-09-03 20:23 | disposition home or self-care (01) ==
PROVIDERS: Physician Assistant; Emergency Provider Emergency Medicine; PCP Family Medicine; Visit Provider Emergency Medicine
DX: R68.83 Chills (without fever) (principal); Z87.39 Personal history of other diseases of the musculoskeletal system and connective tissue; M54.9 Dorsalgia, unspecified; L40.9 Psoriasis, unspecified; G89.29 Other chronic pain; Z87.898 Personal history of other specified conditions; F17.210 Nicotine dependence, cigarettes, uncomplicated; I10 Essential (primary) hypertension
CPT/HCPCS: 71045; 80048; 81001; 84703; 85025; 99282; A4216

== ENCOUNTER 2022-10-23 16:53 | Emergency (ER) | payer MEDICAID, SELFPAY ==
[2022-10-23 16:54] VITALS: BP 141/85; PULSE 83; RESP 16; TEMP 37.1; O2SAT 100; BMI 25.6
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
[2022-10-23] MEDS: Ibuprofen 600 MG Tablet PO (19:04)
[2022-10-23 19:15] VITALS: PULSE 78; RESP 18; O2SAT 100
== END 2022-10-23 19:16 | disposition home or self-care (01) ==
PROVIDERS: Emergency Provider Student in an Organized Health Care Education/Training Program; PCP Family Medicine; Visit Provider Student in an Organized Health Care Education/Training Program
DX: S09.90XA Unspecified injury of head, initial encounter (principal); S16.1XXA Strain of muscle, fascia and tendon at neck level, initial encounter; F17.210 Nicotine dependence, cigarettes, uncomplicated; V43.62XA Car passenger injured in collision with other type car in traffic accident, initial encounter
CPT/HCPCS: 70450; 72125; 99284